=== PATIENT | female | born 1930 | race Caucasian/White ===

== ENCOUNTER 2017-01-20 14:37 | Observation (INO) | payer MEDICARE ==
[2017-01-20] MEDS ORDERED: NS 0.9% 1000 ML* 1,000 ML IV SCH ×2 (15:15→17:45)
--- NOTE | 2017-01-20 15:54 | RAD ---
INDICATION: Syncope. COMPARISON: Comparison is made with a prior chest x-ray study from June 01, 2015. TECHNIQUE: The and lateral views of the chest were obtained. FINDINGS: The heart is within normal limits in size. Mediastinal and hilar contours appear within normal limits. The lungs are clear. There is flattening of the diaphragms suggestive of chronic obstructive pulmonary disease. No pleural effusion is seen. IMPRESSION: NO EVIDENCE FOR ACTIVE CARDIOPULMONARY DISEASE.
--- NOTE | 2017-01-20 16:12 | RAD ---
Indication: Syncope. CT of the brain was performed without IV contrast. Ventricular structures are midline. No midline shift is noted. The extraction spaces are unremarkable. There is no evidence of intracranial mass or hemorrhage. No other high or low density lesions are identified. Mastoid air cells and paranasal sinuses are unremarkable. IMPRESSION: No intracranial mass or hemorrhage is noted.
[2017-01-20 16:18] LABS: Hematocrit 37 % (35-47); Hemoglobin 12.2 g/dl (12.0-16.0); Mean Corpuscular HGB Conc 33 g/dl (31-36); Mean Corpuscular Hemoglobin 27 pg (27-31); Mean Corpuscular Volume 83 fL (80-97); Mean Platelet Volume 8 um3 (7.4-10.4); Red Blood Count 4.47 10^6/ul (4.0-5.4); Red Cell Distribution Width 17 % (10.5-15); White Blood Count 6.8 10^3/ul (3.5-10.8)
[2017-01-20 16:40] LABS: B Type Natriuretic Peptide 254 pg/mL
[2017-01-20 16:47] LABS: Troponin I 0.04 ng/mL (<0.04)
[2017-01-20 16:49] LABS: Ammonia 22 mol/L (16-53)
[2017-01-20 16:50] LABS: Albumin 3.5 g/dL (3.2-5.2); BUN/Creatinine Ratio 14.1 (8-20); Calcium 9.1 mg/dL (8.6-10.3); EGFR African American 67.9 (>60); EGFR Non-African American 52.8 (>60); Globulin 2.2 g/dL (2-4); Magnesium 1.7 mg/dL (1.9-2.7); Potassium 4.2 mmol/L (3.5-5.0); Total Protein 5.7 g/dL (6.4-8.9)
[2017-01-20 16:59] LABS: TSH (Thyroid Stimulating Horm) 0.99 mcIU/mL (0.34-5.60)
[2017-01-20] MEDS ORDERED: Albuterol HFA INHALER* 8 gm MDI INH PRN (17:44)
[2017-01-20] MEDS ORDERED: Albuterol 2.5 MG/3 ML NEB.SOL* (0.083%) INH PRN (17:44)
[2017-01-20] MEDS ORDERED: Magnesium Sulfate 2 GM IV* 2 GM/50 ML BAG IVPB ONE (17:46)
[2017-01-20] MEDS: Aspirin Low Dose CHEW TAB* 81 MG PO SCH (20:04)
--- NOTE | 2017-01-20 20:58 | HP ---
CC: Dr. Miles; Dr. Franklin * HISTORY AND PHYSICAL: DATE OF ADMISSION: 01/20/17 PRIMARY CARE PROVIDER: Dr. Miles. NEUROLOGIST: Dr. Franklin. CHIEF COMPLAINT: Syncope and chest pain. HISTORY OF PRESENT ILLNESS: Ms. Reed is an 87-year-old female, who had a routine followup appointment with Dr. Franklin on the day of admission. Following that appointment, the patient's niece took the patient to [facility]. The patient had gotten out of the car, walked into the store and was going to grab the cart when she suddenly stated that she felt very faint. The patient began to collapse. Her niece as well as some bystanders helped lower her to the floor. The patient's niece states that she is not sure if she lost consciousness completely. The patient states that besides having that faintness feeling, she had what she described as a lump in her chest. The patient denied any spinning sensation, sweating, or nausea at the time of her passing out episode. The patient states that the chest discomfort in the chest lasted for a couple of hours even after the syncopal episode resolved. At this point, the patient is feeling essentially back to normal. She states that she had a good morning without any concerning symptoms. PAST MEDICAL HISTORY: 1. GERD. 2. Memory impairment. 3. CHF - systolic - currently compensated. 4. Overactive bladder. 5. History of breast cancer. 6. History of uterine cancer. 7. Osteoarthritis. 8. Obstructive sleep apnea. 9. Hypertension. MEDICATIONS: 1. Ammonium lactate 12% applied topically twice daily. 2. Probiotic 1 cap p.o. daily. 3. Albuterol HFA 1 puff inhaled q.6 hours p.r.n. shortness of breath. 4. Ramipril 5 mg p.o. daily. 5. Preparation H 1 application rectally t.i.d. p.r.n. hemorrhoids. 6. Potassium chloride 20 mEq p.o. daily. 7. Oxybutynin ER 10 mg p.o. daily. 8. Metoprolol XL 50 mg p.o. daily. 9. Namenda 5 mg p.o. daily. 10. Famotidine 40 mg p.o. daily. 11. Fluoxetine 20 mg p.o. daily. 12. Vitamin D 50,000 units p.o. weekly. 13. Donepezil 10 mg p.o. daily. 14. Vitamin B12 1000 mcg p.o. monthly. 15. Albuterol 1 neb inhaled b.i.d. p.r.n. shortness of breath. 16. Questran 4 g p.o. daily. 17. Lipitor 20 mg p.o. daily. 18. Fosamax 70 mg p.o. weekly. ALLERGIES: SULFA MEDICATIONS. FAMILY HISTORY: The patient's father had coronary artery disease, CHF, and hypertension. The patient's mother had Alzheimer's. SOCIAL HISTORY: The patient is a former smoker quitting in 1966. She is a retired high school librarian from . She lives alone. She is . Her niece, Patricia Sanches, is her healthcare proxy. REVIEW OF SYSTEMS: A complete 11-system review of systems was obtained. Pertinent positives and negatives are as per HPI and otherwise negative. PHYSICAL EXAMINATION GENERAL: The patient is a well-developed elderly female, lying in the bed, in no acute distress. VITAL SIGNS: Blood pressure 157/58, pulse 52, respirations 17, temp 98.5, O2 sat 99% on 2 L. HEENT: Pupils are equal. They are round. There is evidence of prior cataract extraction. Extraocular muscles are intact. Oropharynx is clear. Oral mucosa is moist. There is no submandibular, cervical, or supraclavicular adenopathy. Thyroid is not enlarged. No thyroid nodules are noted. PULMONARY: Lungs are clear to auscultation bilaterally. CARDIAC: Normal S1, S2. Heart rate is bradycardic, but regular. I do not appreciate any murmurs. There is trace to 1+ bilateral lower extremity edema with the left being worse than the right slightly. ABDOMEN: Bowel sounds present. Abdomen is soft, nontender, nondistended. MUSCULOSKELETAL: There is no cyanosis or clubbing of the digits. There is full active range of motion of all 4 extremities. NEURO: Cranial nerves II through XII are grossly intact. Sensation is intact to light touch throughout. Strength is 5/5 and symmetric in both upper and lower extremities bilaterally. PSYCH: The patient is alert, she is oriented x3. Affect appears appropriate. SKIN: Warm and dry. There are no rashes. DIAGNOSTIC STUDIES/LAB DATA: Sodium 134, potassium 4.2, chloride 102, CO2 26, BUN 14, creatinine 0.99, glucose 97, lactic acid 0.8, calcium 9.1, magnesium 1.7. Bilirubin 1.0, AST 17, ALT 9, alk phos 59, ammonia 22. Troponin 0.04. BNP 254. Albumin 3.5. TSH 0.99. WBC 6.8, hemoglobin 12.2, hematocrit 37, platelets 184. EKG reveals sinus bradycardia and otherwise negative for acute ST-T wave abnormalities. Chest x-ray: No evidence for active cardiopulmonary disease. CT brain: No intracranial mass or hemorrhage is noted. ASSESSMENT AND PLAN: Ms. Reed is an 87-year-old female with history of cognitive impairment, systolic congestive heart failure, hypertension, and obstructive sleep apnea, who presents to the emergency room with complaints of syncopal episode while out at [facility]. 1. Syncope. My leading differential for this is orthostatic syncope. The patient do not have really any prodrome of symptoms other than feeling of faintness prior to losing consciousness. The patient had also just gotten out of the car and walked into the store. The patient's niece states that she does not drink enough water throughout the day and they are constantly pushing her to drink more. The patient at this time also feels thirsty, which would make me believe that perhaps she is slightly dehydrated which could exacerbate orthostasis. Additional differentials include vasovagal syncope or cardiac syncope. The patient's heart rate is bradycardic in the 50s. This seems perhaps too low for an elderly individual. I will go ahead and cut her metoprolol down to 25 mg daily. She will be monitored on telemetry. Orthostatic vital signs will be obtained. Additionally, a transthoracic echocardiogram will be obtained. 2. Chest discomfort. The patient states that prior to losing consciousness, she did develop what she described as a lump in her chest. While that dissipated, she then states that she felt discomfort in her chest for a couple of hours afterwards. The patient's troponin is slightly elevated at 0.04. Followup troponins will be obtained x2 as well a followup EKG. The patient is also going to undergo transthoracic echocardiogram. Of note, she did have a cardiac catheterization in November 2010, which did not show any significant obstructive coronary artery disease. 3. Hyperlipidemia. The patient will be maintained on her usual dose of Lipitor. 4. Hypertension. At this time, the patient's blood pressure is moderately elevated. For now, she will be continued on her usual dose of ramipril and her metoprolol XL will be decreased to 25 mg daily. 5. Cognitive impairment. The patient will be continued on her usual dose of donepezil and Namenda. 6. Gastroesophageal reflux disease. The patient will continue on famotidine. 7. Depression. She will continue on her usual dose of fluoxetine. 8. DVT prophylaxis. According to the Adult Thrombosis Prophylaxis Risk Factor Assessment Guide, the patient has a total risk factor score of 6 making her high risk. She will be placed on heparin 5000 units subcutaneous q.8 hours. 9. Code status is DNR and the patient indicates that her niece, Patricia Sanches, is her healthcare proxy. TIME SPENT: Sixty minutes was spent admitting this patient. [id number]/CPS #: [id number] MTDD
[2017-01-20] MEDS: Heparin VIAL(*) 5000 UNITS/ML VIAL (FIVE THOUSAND) SUBCUT SCH (22:01)
[2017-01-21] MEDS: Heparin VIAL(*) 5000 UNITS/ML VIAL (FIVE THOUSAND) SUBCUT SCH ×2 (05:27→15:37)
[2017-01-21] MEDS ORDERED: Potassium Chlor TAB* 20 MEQ TAB.ER PO SCH (09:00)
[2017-01-21] MEDS ORDERED: Cholestyramine Resin* 4 GM POWDER PO SCH (09:00)
[2017-01-21] MEDS ORDERED: Ramipril CAP* 5 MG PO SCH (09:00)
[2017-01-21] MEDS ORDERED: Atorvastatin* 20 MG TAB PO SCH (09:00)
[2017-01-21] MEDS ORDERED: Famotidine TAB* 20 MG PO SCH (09:00)
[2017-01-21] MEDS ORDERED: Memantine TAB* 5 MG PO SCH (09:00)
[2017-01-21] MEDS ORDERED: Oxybutynin XL TAB* 5 MG PO SCH (09:00)
[2017-01-21] MEDS ORDERED: FLUoxetine CAP* 20 MG PO SCH (09:00)
[2017-01-21] MEDS ORDERED: Metoprolol Succinate XL TAB* 25 MG PO SCH (09:00)
[2017-01-21] MEDS ORDERED: Donepezil TAB* 5 MG PO SCH (09:00)
[2017-01-21] MEDS: Aspirin Low Dose CHEW TAB* 81 MG PO SCH (10:00)
--- NOTE | 2017-01-21 12:30 | PN ---
Subjective Date of Service: 01/21/17 Interval History: Pt is feeling well. She has not had any lightheadedness today. No further chest discomfort. No SOB. She has been up and ambulating to the bathroom without difficulty but has not ambulated around the floor. Objective Active Medications: Albuterol (Ventolin 2.5 Mg/3 Ml Neb.Diana*) 2.5 mg INH BID PRN PRN Reason: SHORTNESS OF BREATH Albuterol (Ventolin Hfa Inhaler*) 2 puff INH Q6H PRN PRN Reason: SHORTNESS OF BREATH Aspirin (Aspirin Low Dose Tab*) 81 mg PO DAILY [facility] Last Admin: 01/21/17 10:00 Dose: 81 mg Atorvastatin Calcium (Lipitor*) 20 mg PO DAILY [facility] Last Admin: 01/21/17 10:00 Dose: 20 mg Cholestyramine Resin (Questran*) 4 gm PO DAILY [facility] Last Admin: 01/21/17 10:01 Dose: 4 gm Donepezil HCl (Aricept Tab*) 10 mg PO DAILY [facility] Last Admin: 01/21/17 10:00 Dose: 10 mg Famotidine (Pepcid Tab*) 40 mg PO DAILY [facility] Last Admin: 01/21/17 10:00 Dose: 40 mg Fluoxetine HCl (Prozac Cap*) 20 mg PO DAILY [facility] Last Admin: 01/21/17 09:59 Dose: 20 mg Heparin Sodium (Porcine) (Heparin Vial(*)) 5,000 units SUBCUT Q8HR [facility] Last Admin: 01/21/17 05:27 Dose: 5,000 units Memantine (Namenda Tab*) 5 mg PO DAILY [facility] Last Admin: 01/21/17 10:55 Dose: 5 mg Metoprolol Succinate (Toprol Xl Tab*) 25 mg PO DAILY [facility] Last Admin: 01/21/17 10:00 Dose: 25 mg Oxybutynin Chloride (Ditropan Xl Tab*) 10 mg PO DAILY [facility] Last Admin: 01/21/17 09:59 Dose: 10 mg Potassium Chloride (Klor Con Er Tab*) 20 meq PO DAILY [facility] Last Admin: 01/21/17 10:01 Dose: 20 meq Ramipril (Altace Cap*) 5 mg PO DAILY [facility] Last Admin: 01/21/17 10:00 Dose: 5 mg Vital Signs 01/20/17 01/20/17 01/20/17 17:46 18:00 18:20 Temperature 98.4 F Pulse Rate 52 51 50 Respiratory 17 17 18 Rate Blood Pressure 146/67 138/87 (mmHg) O2 Sat by Pulse 99 99 100 Oximetry 01/20/17 01/20/17 01/20/17 20:40 20:47 23:28 Temperature 98.4 F Pulse Rate 61 50 50 Respiratory 18 Rate Blood Pressure 118/53 138/87 (mmHg) O2 Sat by Pulse 100 Oximetry 01/20/17 01/21/17 01/21/17 23:53 03:14 07:12 Temperature 98.0 F 97.6 F 97.9 F Pulse Rate 51 51 48 Respiratory 20 16 20 Rate Blood Pressure 117/41 130/54 149/56 (mmHg) O2 Sat by Pulse 97 99 97 Oximetry Oxygen Devices in Use Now: Nasal Cannula - 97%-2L Appearance: Elderly female sitting up in bed reading, NAD Eyes: No Scleral Icterus Ears/Nose/Mouth/Throat: Mucous Membranes Moist Respiratory: Symmetrical Chest Expansion and Respiratory Effort, Clear to Auscultation - with few RLL crackles Cardiovascular: NL Sounds; No Murmurs; No JVD, RRR, - - trace B/L LE edema Abdominal: NL Sounds; No Tenderness; No Distention Extremities: No Clubbing, Cyanosis Skin: No Rash or Ulcers, No Nodules or Sclerosis Neurological: Alert and Oriented x 3 Result Diagrams: 01/20/17 15:55 01/20/17 15:55 Assess/Plan/Problems-Billing Ms Reed is an 87 yo F who presented to the ER with c/o a syncopal episode while at [facility] with associated chest discomfort. - Patient Problems (1) Syncope Current Visit: Yes Status: Acute Code(s): R55 - SYNCOPE AND COLLAPSE SNOMED Code(s): 722511773 Comment: The patient has been monitored on tele and found to be bradycardic but she has not had any further episodes of syncope. I suspect the syncope is related to possible volume depletion from not drinking enough at home. She was not orthostatic last evening when checked though she had received fluids prior to having them obtained. Her bradycardia may have additionally contributed. I have cut her metoprolol XL dose in half and despite that she is still bradycardic. Will stop the metoprolol all together. Will make sure she is up and ambulating prior to d/c to ensure she is asymptomatic. (2) Elevated troponin Current Visit: Yes Status: Acute Code(s): R74.8 - ABNORMAL LEVELS OF OTHER SERUM ENZYMES SNOMED Code(s): 052811189 Comment: Likely demand ischemia. Troponin did climb to 0.11 but has since trended down. Echo results are pending. (3) HTN (hypertension) Current Visit: Yes Status: Acute Code(s): I10 - ESSENTIAL (PRIMARY) HYPERTENSION SNOMED Code(s): 57750090 Comment: BP is moderately elevated with decreased metoprolol dose. Will increase ramipril on d/c. (4) DVT prophylaxis Current Visit: Yes Status: Acute Code(s): OTY1418 - SNOMED Code(s): 916847144 Comment: SQ heparin (5) DNR (do not resuscitate) Current Visit: Yes Status: Acute
--- NOTE | 2017-01-21 13:42 | ED ---
Chris Santana Aidan, scribed for Javier Troncoso MD on 01/20/17 at 1532 . Syncope/Near Syncope - HPI Summary HPI Summary: 87 y/o female presents to the ED with a complaint of an acute, moderate syncopal event that began just EVENT ATTENDANT. During onset of the event, she became dizzy , weak, and had chest pressure. After the event, she had confusion. Currently, she still has weakness. Pt denies any nausea, vomiting, or abdominal pain. - History Of Current Complaint Chief Complaint: EDDizziness Time Seen by Provider: 01/20/17 14:56 Hx Obtained From: Patient Onset/Duration: Sudden Onset Timing: Seconds - seconds to a minute Context: Witnessed, Loss Of Consciousness Activity At Onset: At Rest - Pt was standing Associated Head Trauma: No Aggravating Factor(s): Other - unknown Alleviating Factor(s): Other - unknown Associated Signs And Symptoms: Dizzy, Weakness, Other - chest pressure, syncope , confusion Frequency: Episodes x___ - 1, Episodes Lasting ____ (in Mins/Days/Weeks/Years) - seconds to a minute - Risk Factors Cardiac Risk Factors: Smoking - former smoker - Allergies/Home Medications Allergies/Adverse Reactions: Allergies Allergy/AdvReac Type Severity Reaction Status Date / Time Loratadine [From Claritin] Allergy Unknown Unknown Verified 04/22/16 12:22 Reaction Details Sulfa Drugs Allergy Unknown Unknown Verified 04/22/16 12:22 Reaction Details Home Medications: Home Medications Alendronate (NF) [Fosamax (NF)] 70 mg PO WEEKLY 01/20/17 [History Confirmed ] Atorvastatin* [Lipitor 20 MG*] 20 mg PO DAILY 01/20/17 [History Confirmed ] Cholestyramine Resin* [Questran*] 4 gm PO DAILY 01/20/17 [History Confirmed ] Donepezil TAB* [Aricept 5 MG TAB*] 10 mg PO DAILY 01/20/17 [History Confirmed ] Ergocalciferol CAP* [Drisdol CAP*] 50,000 unit PO WEEKLY 01/20/17 [History Confirmed 01/20/17] FLUoxetine CAP* [Prozac CAP*] 20 mg PO DAILY 01/20/17 [History Confirmed ] Famotidine TAB* [Pepcid 20 MG TAB*] 20 mg PO DAILY 01/20/17 [History Confirmed 01/20/17] Lactic Acid (Ammonium Lactate) [Ammonium Lactate] 12 % TOPICAL BID 01/20/17 [ History Confirmed 01/20/17] Memantine TAB* [Namenda TAB*] 5 mg PO DAILY 01/20/17 [History Confirmed 01/20/17 ] Oxybutynin Chloride [Oxybutynin Chloride ER] 10 mg PO DAILY 01/20/17 [History Confirmed 01/20/17] Phenylephrine-Mineral Oil-Juventino [Preparation H 0.25-14-74.9 %] 1 oin SD TID PRN 01/20/17 [History Confirmed 01/20/17] Potassium Chlor TAB* [Potassium Chlor TAB 20 MEQ*] 20 meq PO DAILY 01/20/17 [ History Confirmed 01/20/17] Probiotic Product [Probiotic Daily] 1 cap PO DAILY 01/20/17 [History Confirmed 01/20/17] PMH/Surg Hx/FS Hx/Imm Hx Endocrine/Hematology History: Reports: Hx Thyroid Disease, Other Endocrine/ Hematological Disorders - Vitamin B12 Deficiency Denies: Hx Diabetes Cardiovascular History: Reports: Hx Hypercholesterolemia, Hx Hypertension, Other Cardiovascular Problems/Disorders - Heart Disease Denies: Hx Pacemaker/ICD Respiratory History: Reports: Hx Asthma, Hx Sleep Apnea - current BiPAP user History: Denies: Hx Renal Disease Musculoskeletal History: Reports: Hx Osteoporosis Sensory History: Reports: Hx Hearing Aid - DOESN'T WEAR ALL THE TIME Neurological History: Reports: Other Neuro Impairments/Disorders - Alzheimers Psychiatric History: Denies: Hx Panic Disorder - Cancer History Cancer Type, 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 Rt MASTECTOMY - 1991. TOTAL HYSTERECTOMY - 2007 Infectious Disease History: Denies: Traveled Outside the [place] in Last 30 Days - Family History Known Family History: Positive: Hypertension Family History: FHx of Breast CA (Aunt) - Social History Occupation: Retired Lives: Alone Alcohol Use: Rare Substance Use Type: Reports: None Smoking Status (MU): Former Smoker Review of Systems Constitutional: Negative Eyes: Negative ENT: Negative Positive: Other - chest pressure. Negative: Palpitations, Chest Pain Respiratory: Negative Gastrointestinal: Negative Genitourinary: Negative Musculoskeletal: Negative Skin: Negative Neurological: Other - dizziness, confusion Positive: Weakness, Syncope. Negative: Headache, Paresthesia, Numbness, Slurred Speech Psychological: Normal All Other Systems Reviewed And Are Negative: Yes Physical Exam - Summary Physical Exam Summary: VITAL SIGNS: Reviewed. GENERAL: Patient is a well-developed and nourished, elderly FEMALE who is lying comfortable in the stretcher. Patient is not in any acute respiratory distress. HEAD AND FACE: No signs of trauma. No ecchymosis, hematomas or skull depressions. No sinus tenderness. EYES: PERRLA, EOMI x 2, No injected conjunctiva, no nystagmus. EARS: Hearing grossly intact. Ear canals and tympanic membranes are within normal limits. MOUTH: Oropharynx within normal limits. NECK: Supple, trachea is midline, no adenopathy, no JVD, no carotid bruit, no c- spine tenderness, neck with full ROM. CHEST: Symmetric, no tenderness at palpation LUNGS: Clear to auscultation bilaterally. No wheezing or crackles. CVS: Regular rate and rhythm, S1 and S2 present, no murmurs or gallops appreciated. ABDOMEN: Soft, non-tender. No signs of distention. No rebound no guarding, and no masses palpated. Bowel sounds are normal. EXTREMITIES: FROM in all major joints, no edema, no cyanosis or clubbing. NEURO: Alert and oriented x 3. No acute neurological deficits. Speech is normal and follows commands. SKIN: Dry and warm Triage Information Reviewed: Yes Vital Signs On Initial Exam: Initial Vitals Temp Pulse Resp BP Pulse Ox 98.5 F 54 16 146/83 99 01/20/17 14:48 01/20/17 14:48 01/20/17 14:48 01/20/17 14:48 01/20/17 14:48 Vital Signs Reviewed: Yes - Helder Coma Scale Coma Scale Total: 15 Diagnostics - Vital Signs Vital Signs Temp Pulse Resp BP Pulse Ox 01/20/17 14:48 98.5 F 54 16 146/83 99 - Laboratory Lab Results: Lab Results 01/20/17 01/20/17 01/20/17 Range/Units 15:55 15:55 15:55 WBC 6.8 (3.5-10.8) 10^3/ul RBC 4.47 (4.0-5.4) 10^6/ul Hgb 12.2 (12.0-16.0) g/dl Hct 37 (35-47) % MCV 83 (80-97) fL MCH 27 (27-31) pg MCHC 33 (31-36) g/dl RDW 17 H (10.5-15) % Plt Count 184 (150-450) 10^3/ul MPV 8 (7.4-10.4) um3 Neut % (Auto) 73.1 (38-83) % Lymph % (Auto) 16.8 L (25-47) % [place] % (Auto) 8.4 (1-9) % Eos % (Auto) 1.2 (0-6) % Baso % (Auto) 0.5 (0-2) % Absolute Neuts (auto) 5.0 (1.5-7.7) 10^3/ul Absolute Lymphs (auto) 1.1 (1.0-4.8) 10^3/ul Absolute Monos (auto) 0.6 (0-0.8) 10^3/ul Absolute Eos (auto) 0.1 (0-0.6) 10^3/ul Absolute Basos (auto) 0 (0-0.2) 10^3/ul Absolute Nucleated RBC 0.02 10^3/ul Nucleated RBC % 0.3 Sodium 134 (133-145) mmol/L Potassium 4.2 (3.5-5.0) mmol/L Chloride 102 (101-111) mmol/L Carbon Dioxide 26 (22-32) mmol/L Anion Gap 6 (2-11) mmol/L BUN 14 (6-24) mg/dL Creatinine 0.99 H (0.51-0.95) mg/dL Est GFR ( Amer) 67.9 (>60) Est GFR (Non-Af Amer) 52.8 (>60) BUN/Creatinine Ratio 14.1 (8-20) Glucose 97 (70-100) mg/dL Lactic Acid 0.8 (0.5-2.0) mmol/L Calcium 9.1 (8.6-10.3) mg/dL Magnesium 1.7 L (1.9-2.7) mg/dL Total Bilirubin 1.00 (0.2-1.0) mg/dL AST 17 (13-39) U/L ALT 9 (7-52) U/L Alkaline Phosphatase 59 (34-104) U/L Ammonia (16-53) mol/L Troponin I 0.04 H* (<0.04) ng/mL B-Natriuretic Peptide ( - 100) pg/mL Total Protein 5.7 L (6.4-8.9) g/dL Albumin 3.5 (3.2-5.2) g/dL Globulin 2.2 (2-4) g/dL Albumin/Globulin Ratio 1.6 (1-3) TSH 0.99 (0.34-5.60) mcIU/mL 01/20/17 Range/Units 15:55 WBC (3.5-10.8) 10^3/ul RBC (4.0-5.4) 10^6/ul Hgb (12.0-16.0) g/dl Hct (35-47) % MCV (80-97) fL MCH (27-31) pg MCHC (31-36) g/dl RDW (10.5-15) % Plt Count (150-450) 10^3/ul MPV (7.4-10.4) um3 Neut % (Auto) (38-83) % Lymph % (Auto) (25-47) % [place] % (Auto) (1-9) % Eos % (Auto) (0-6) % Baso % (Auto) (0-2) % Absolute Neuts (auto) (1.5-7.7) 10^3/ul Absolute Lymphs (auto) (1.0-4.8) 10^3/ul Absolute Monos (auto) (0-0.8) 10^3/ul Absolute Eos (auto) (0-0.6) 10^3/ul Absolute Basos (auto) (0-0.2) 10^3/ul Absolute Nucleated RBC 10^3/ul Nucleated RBC % Sodium (133-145) mmol/L Potassium (3.5-5.0) mmol/L Chloride (101-111) mmol/L Carbon Dioxide (22-32) mmol/L Anion Gap (2-11) mmol/L BUN (6-24) mg/dL Creatinine (0.51-0.95) mg/dL Est GFR ( Amer) (>60) Est GFR (Non-Af Amer) (>60) BUN/Creatinine Ratio (8-20) Glucose (70-100) mg/dL Lactic Acid (0.5-2.0) mmol/L Calcium (8.6-10.3) mg/dL Magnesium (1.9-2.7) mg/dL Total Bilirubin (0.2-1.0) mg/dL AST (13-39) U/L ALT (7-52) U/L Alkaline Phosphatase (34-104) U/L Ammonia 22 (16-53) mol/L Troponin I (<0.04) ng/mL B-Natriuretic Peptide 254 H ( - 100) pg/mL Total Protein (6.4-8.9) g/dL Albumin (3.2-5.2) g/dL Globulin (2-4) g/dL Albumin/Globulin Ratio (1-3) TSH (0.34-5.60) mcIU/mL Result Diagrams: 01/20/17 15:55 01/20/17 15:55 Lab Statement: Any lab studies that have been ordered have been reviewed, and results considered in the medical decision making process. - Radiology CHEST X-RAY Xray Interpretation: No Acute Changes - IMPRESSION: NO EVIDENCE FOR ACTIVE CARDIOPULMONARY DISEASE Radiology Interpretation Completed By: Radiologist - CT BRAIN CT CT Interpretation: No Acute Changes - IMPRESSION: NO INTRACRANIAL MASS OR HEMORRHAGE IS NOTED CT Interpretation Completed By: Radiologist - EKG EKG 1510 Cardiac Rate: Bradycardia - 50 BPM EKG Rhythm: Sinus Bradycardia EKG Interpretation: NO ST ELEVATIONS Course/Dx Course Of Treatment: 87 y/o female presents because of a syncopal event with associated LOC, Dizziness, confusion and weakness. tests results within normal limits except troponin of 0.04. BNP of 254. INB Labs and Imaging reviewed. Chest x-ray and brain ct were negative. Pt was given IV fluids for hydration. Pt continues to be hemodynamically stable. Discussed the patients care with Dr. Travis who accepted admission for workup of syncopal episode and increased trop to rule out ACS. Assessment/Plan: Ekg shows sinus bradycardia without st elevation - Diagnoses Differential Diagnosis/HQI/PQRI: Positive: Cerebral Vascular Accident, Seizure, Transient Ischemic Attack, Vasovagal Episode Provider Diagnoses: Syncope, Elevated troponin Discharge - Discharge Plan Condition: Fair Disposition: HOME The documentation as recorded by the Chris alvarez Aidan accurately reflects the service I personally performed and the decisions made by me, Javier Troncoso MD.
[2017-01-21 14:46] VITALS: BP 116/48
--- NOTE | 2017-01-21 18:11 | ECHO ---
Patient: STANTON LAWTNO [facility] Rec#: [id number] : 1930 Date: 01/21/2017 Age: 87y Height: 152.4 cm / 60.0 in Weight: 66.7 kg / 147.0 lbs Sex: F BSA: 1.6 Room#: [facility] Admit Date#: 01/20/2017 Type: Inpatient Referring: Renetta Goldman DO Reading: Addy Roque MD Paint Sprayer Sandblaster: Alejandra mEerson RN RDCS CC: Haider Miles MD Transthoracic Echocardiogram Indication: Syncope BP: 130/54 HR: 50 Rhythm: Bradycardia Findings History: CHF, ROOPA, HTN, GERD, breast cancer, uterine cancer, former smoker, memory impairment Technical Comments: The study quality is fair. Completed at 0910. Left Ventricle: The left ventricular chamber size is normal. Mild to moderate concentric left ventricular hypertrophy is observed. There is global hypokinesis of the left ventricle with minor regional variation.Relative hypokinesis of the inferior and posterior jimenez. There is mildly decreased left ventricular systolic function. The estimated ejection fraction is 45-50%. There is no consistent Doppler evidence of clinically significant diastolic dysfunction. Left Atrium: The left atrium is moderate to severely dilated. Right Ventricle: The right ventricular cavity size is normal. The right ventricular global systolic function is low normal. Right Atrium: The right atrium is mildly dilated. Aortic Valve: The aortic valve is trileaflet. The aortic valve leaflets are mildly thickened. There is a trace of aortic regurgitation. There is no evidence of aortic stenosis. Mitral Valve: Mild mitral annular calcification present. The mitral valve leaflets are mildly thickened. There is mild to moderate mitral regurgitation. There is no evidence of mitral stenosis. Tricuspid Valve: The tricuspid valve leaflets are normal. There is mild tricuspid regurgitation. There is evidence of mild to moderate pulmonary hypertension. There is no tricuspid stenosis. Pulmonic Valve: The pulmonic valve appears normal. There is mild pulmonic regurgitation. There is no pulmonic stenosis. Pericardium: There is no significant pericardial effusion. A pericardial fat pad is visualized. Aorta: There is no dilatation of the ascending aorta. There is no dilatation of the aortic arch. There is no dilation of the aortic root. Pulmonary Artery: The main pulmonary artery appears normal. Venous: The inferior vena cava appears normal in size. There is an approximate 50% respiratory change in the inferior vena cava dimension. Conclusions Mild to moderate concentric left ventricular hypertrophy is observed. There is global hypokinesis of the left ventricle with minor regional variation.Relative hypokinesis of the inferior and posterior jimenez. There is mildly decreased left ventricular systolic function. The estimated ejection fraction is 45-50%. The left atrium is moderate to severely dilated. The right atrium is mildly dilated. There is mild to moderate mitral regurgitation. There is mild tricuspid regurgitation. There is evidence of mild to moderate pulmonary hypertension. There is mild pulmonic regurgitation. Similar to05/2015. Measurements Name Value Normal Range RVDdMajor (2D) 3.6 cm (2.2 - 4.4) RAd ISD 4CH 5.6 cm (3.4 - 4.9) RA (A4C)W 4.7 cm (2.9 - 4.6) IVSd (2D) 1.3 cm (0.6 - 1) LVPWd (2D) 1.3 cm (0.6 - 1) LVIDd (2D) 4.2 cm (3.6 - 5.4) LVIDs (2D) 3.4 cm - LV FS (2D) 20 % (25 - 45) Aortic Annulus 1.9 cm (1.4 - 2.6) Ao root diameter (2D) 2.8 cm (2.1 - 3.5) Ascending Ao 3 cm (2.1 - 3.4) Aortic arch 3 cm (1.8 - 3.4) LA dimension (AP) 2D 4.4 cm (2.3 - 3.8) LAd ISD 4CH 6 cm (2.9 - 5.3) LA ISD 4CH W 4.8 cm (2.5 - 4.5) Name Value Normal Range LA ESV SP 4CH (A/L) 125 ml - LA ESV SP 2CH (A/L) 67 ml - LA ESV BP (A/L) 99 ml - LA ESV BP (A/L) index 60.6 ml/m2 - LA ESV SP 4CH (MOD) 117 ml - LA ESV SP 2CH (MOD) 67 ml - Name Value Normal Range MV E-wave Vmax 0.96 m/sec - MV deceleration time 161 msec - MV A-wave Vmax 0.64 m/sec - MV E:A ratio 1.5 ratio - LV septal e' Vmax 0.05 m/sec - LV lateral e' Vmax 0.08 m/sec - LV E:e' septal ratio 19.2 ratio - LV E:e' lateral ratio 12 ratio - Name Value Normal Range AV Vmax 1.8 m/sec - AV VTI 51.2 cm - AV peak gradient 12.5 mmHg - AV mean gradient 7 mmHg - LVOT Vmax 1.1 m/sec - LVOT VTI 32.2 cm - LVOT peak gradient 5 mmHg - LVOT mean gradient 3 mmHg - ANTONIO Vmax 0.61 m/sec - Name Value Normal Range TR Vmax 2.9 m/sec - TR peak gradient 34 mmHg - RAP 8 mmHg - RVSP 42 mmHg - IVC diameter 2 cm - Name Value Normal Range PV Vmax 0.89 m/sec -
--- NOTE | 2017-01-23 04:05 | DS ---
CC: Haider Miles MD * DISCHARGE SUMMARY: DATE OF ADMISSION: 01/20/17 DATE OF DISCHARGE: 01/21/17 PRIMARY CARE PROVIDER: Haider Miles MD NEUROLOGIST: Dr. Franklin. PRINCIPAL DIAGNOSIS: Syncopal episode likely secondary to volume depletion and possible bradycardia. SECONDARY DIAGNOSES: 1. Gastroesophageal reflux disease. 2. Memory impairment. 3. Systolic congestive heart failure. 4. Overactive bladder. 5. Hypertension. 6. Obstructive sleep apnea. DISCHARGE MEDICATIONS: 1. Famotidine 20 mg p.o. daily. 2. Vitamin B12 1000 mcg p.o. daily. 3. Ramipril 10 mg p.o. q.h.s. 4. Lipitor 20 mg p.o. daily. 5. Ammonium lactate 12% topical b.i.d. 6. Probiotic 1 cap p.o. daily. 7. Preparation H 1 application AL t.i.d. p.r.n. hemorrhoids. 8. Potassium chloride 20 mEq p.o. daily. 9. Oxybutynin 10 mg p.o. daily. 10. Namenda 5 mg p.o. daily. 11. Fluoxetine 20 mg p.o. daily. 12. Vitamin D 50,000 units p.o. weekly. 13. Donepezil 10 mg p.o. daily. 14. Questran 4 g p.o. daily. 15. Alendronate 70 mg p.o. weekly. 16. Aspirin 81 mg p.o. daily. HOSPITAL COURSE: Ms. Reed is an 87-year-old female who had just finished up with an appointment with Dr. Franklin and was going to do grocery shopping in [facility] when she sustained a syncopal episode. The patient reportedly got out of her niece's car, was walking into the building to get a cart and began to feel faint. The patient also describes the sensation of having a "lump" in her chest. The patient's niece helped the patient the ground as she crumpled down. The patient's niece questioned that she may have lost consciousness completely or not. The patient in the emergency room states that she had ongoing chest discomfort for approximately 2 hours after arrival to the ER. This has then had since gone away at the time of my evaluation. The patient was admitted to evaluation of her syncopal episode and chest discomfort. In terms of the syncopal episode, she had orthostatic vital signs obtained, which did not reveal any evidence of orthostasis; however, these were performed after she already received approximately 1 L of fluid. She was noted to be bradycardic, therefore her metoprolol dose initially was cut in half; however as she still remained bradycardic in the 40s, the decision was made to discontinue the metoprolol completely. The patient had been up and walking around the entire floor without any difficulty or lightheadedness. In terms of the chest discomfort, the patient did have serial troponins performed. The patient's troponin did peak at 0.11, but subsequently trended down. It is felt that that the patient's elevated troponin was likely related to demand ischemia. She did undergo transthoracic echocardiogram, which the results were not back at the time of her discharge, but now are back and reveal an EF of 45% to 50%, global hypokinesis of the left ventricle with minor regional variation. Relative hypokinesis of inferior and posterior wall is noted. This was not significantly changed from her last echo in 2014. The patient was feeling extremely well and wanted to be discharged home. The patient will continue to monitor her symptoms. She will need to follow up with her primary care provider for the cutting of the metoprolol. FOLLOWUP CONCERNS: The patient is being discharged home today, 01/21/17. She is to follow up with Dr. Miles on 01/25/17 at 11 a.m. ACTIVITY LEVEL: As tolerated. DIET: Regular. CONDITION ON DISCHARGE: Stable. TIME SPENT: 35 minutes were spent discharging this patient. [id number]/[facility] #: [id number] MTDD
== END 2017-01-21 17:25 | disposition home or self-care (01) ==
LOC: ED 14:37 → MEDTELE 17:42
PROVIDERS: ADMIT Hospitalist; ATTEND Hospitalist
DX: R55 Syncope and collapse (principal); R07.9 Chest pain, unspecified; R00.1 Bradycardia, unspecified; E86.9 Volume depletion, unspecified; I34.0 Nonrheumatic mitral (valve) insufficiency; I27.2 Other secondary pulmonary hypertension; I50.20 Unspecified systolic (congestive) heart failure; I11.0 Hypertensive heart disease with heart failure; I37.1 Nonrheumatic pulmonary valve insufficiency; I25.10 Atherosclerotic heart disease of native coronary artery without angina pectoris; I42.9 Cardiomyopathy, unspecified; I51.7 Cardiomegaly; G47.33 Obstructive sleep apnea (adult) (pediatric); Z85.3 Personal history of malignant neoplasm of breast; G31.84 Mild cognitive impairment of uncertain or unknown etiology; Z85.42 Personal history of malignant neoplasm of other parts of uterus; Z87.891 Personal history of nicotine dependence; N32.81 Overactive bladder; K21.9 Gastro-esophageal reflux disease without esophagitis; R74.8 Abnormal levels of other serum enzymes; Z88.0 Allergy status to penicillin; Z88.8 Allergy status to other drugs, medicaments and biological substances
CPT/HCPCS: 36415; 70450; 71020; 80053; 82140; 83605; 83735; 83880; 84443; 84484; 85025; 93005; 93306; 96360; 96372; 99283; A9270-GY; G0378; J1644

== ENCOUNTER 2017-10-17 17:47 | Emergency (ER) | payer MEDICARE ==
--- OUTSIDE RECORDS SUMMARY | 2017-10-17 18:24 | XMS REPORT ---
:1930 External Reference #:[id number] Author Organization [facility] Address [address] [address] Phone [phone] Care Team Providers Name Role Phone Brianna Suarez MD Primary Care Physician Unavailable Payers Type Date Identification Numbers Payment Provider Subscriber Medicare Primary Policy Number: [id number] Medicare Kati Reed PayID: [id number] [address] [place] [address] [facility] Policy Number: [id number] [facility] aKti Leigh Derek PayID: [id number] [address] [place] [address] Advance Directives Type Date Description Status Comment Other Directive 04/27/2012 Health Care Proxy Current and Verified Problems Date Description Provider Status Onset: 07/01/2011 Coronary arteriosclerosis Brenda Kasper M.D. Onset: 07/01/2011 Benign essential hypertension Brenda Kasper M.D. Onset: 07/01/2011 Restrictive cardiomyopathy secondary rBenda Kasper M.D. Onset: 07/01/2011 Electrocardiogram abnormal Brenda Kasper M.D. Onset: 07/01/2011 Essential hypertension Brenda Kasper M.D. Onset: 02/03/2012 Premature beats Brenda Kasper M.D. Onset: 12/20/2012 Pure hypercholesterolemia Brenda Kasper M.D. Onset: 12/20/2012 Mitral valve disorder Brenda Kasper M.D. Onset: 12/20/2012 Rheumatic disease of tricuspid valve Brenda Kasper M.D. Onset: 10/20/2013 Edema Brenda Kasper M.D. Onset: 05/10/2015 Cardiomyopathy, unspecified Brenda Kasper M.D. Onset: 07/01/2015 Memory impairment Reina Franklin M.D. Active Note: Mild cognitive impairment (MoCA 25 on 08/15/15, in July 2016, in August 2017) Onset: 07/01/2015 History of fall Reina Franklin M.D. Active Onset: 07/01/2015 Depressive disorder Reina Franklin M.D. 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 Family History Date Family Member(s) Problem(s) Comments General Heart Disease General Cancer Father due to Stroke () Mother Alzheimer's Disease Mother due to Alzheimer's () Disease Siblings 1 sister with Alzheimer's, mastectomy, breast cancer Social History Type Date Description Comments Marital Status Single Lives With [employer] Occupation Retired Cigarette Use Former Cigarette Smoker Smoked 1 PPD for 10 years Smokeless Tobacco Never Used Smokeless Tobacco ETOH Use Denies alcohol use Smoking Patient is a former smoker Recreational Drug Use Denies Drug Use Daily Caffeine Consumes on average 3 cups of decaff coffee per day Exercise Type/Frequency Does not exercise Allergies, Adverse Reactions, Alerts Date Description Reaction Status Severity Comments 05/17/2008 Sulfa active vomits Medications Medication Date Status Form Strength Qnty SIG Indications Ordering Provider Metoprolol 10/07 Active Tablets ER 25mg 60tab 08/10 tab by I49.3 Mimi S. Succinate ER /2017 24HR s mouth twice Foster, a day N.P. Albuterol 09/21 Active Nebulizer (2.5mg/3M 75ml inhale 3 R06.00 Wisam Sulfate /2018 L) 0.083% milliliters ALONZO Kimball 2 times a day by neb.pt. last office visit was 07/14/17 Imodium A-D 07/06 Active Tablets 2mg 30tab 1 tablet s twice daily ALONZO Kimball as needed for loose stools. pt can id need Namenda 06/16 Active Tablets 10mg 60tab take one s tablet by letty Franklin twice M.D. a day Acetaminophen 06/02 Active Tablets 500mg 90tab 2 tabs every M25.519 Wisam s 8 hours as ALONZO Kimball needed for pain. Cpap 06/02 Active Device 1unit for use G47.30 Wisam s while ALONZO Kimball sleeping Cpap Mask And 06/02 Active Device 1unit use with G47.30 Wisam s cpap nightly ALONZO Kimball Atorvastatin Active Tablets 20mg 90tab 1 po qd Unknown Calcium / s Ramipril Active Capsules 10mg 90cap 1 po hs Unknown / s Potassium Active Tablets ER 20Meq 1 po qd Unknown Chloride ER / Donepezil HCL Active Tablets 10mg 30tab 1 by mouth Reina / Dispers s every day Dorie Franklin Famotidine Active Tablets 20mg 60tab 1 po bid Unknown / s Vitamin B-12/ Active Lozenge 1 by mouth Unknown Folate / every day Alendronate Active Tablets 70mg 1 by mouth Unknown Sodium / weekly Preparation H Active Gel 0.25-50% apply Unknown /0000 externally tid Probiotic And Active Capsules 1 by mouth Unknown Acidophilus /0000 every day Oxybutynin Active Tablets ER 15mg 1 by mouth Unknown Chloride ER /0000 24HR every day (Mar states 10mg on 08/27/17) Vitamin D2 Active Tablets 27411Oote 1 by mouth Unknown /0000 every week Ventolin HFA Active Aerosol 108(90Bas 2 puffs by Unknown /0000 e) mouth four mcg/Act times a day as needed Cholestyramine Active Powder in the Unknown /0000 morning Fluoxetine HCL Active Capsules 20mg 1 by mouth Unknown /0000 every day Aspirin Low Active 1 by mouth Unknown Strength /0000 every day Memantine HCL 06/03 Hx Tablets 5(28)-10( 1pack use as Reina )mg directed Rigoberto, - (starter M.D. 07/13 pack); after complete, change to 10mg pills. Naproxen 09/29 Hx Tablets 500mg 40tab 1 tablet Anay s with food po Ruiz, - bid M.D. 07/23 Pepcid 12/20 Hx Tablets 20mg 30tab 1 po qd Other s Ordering - Provider 09/29 Hydrocodone/Brent 02/25 Hx Tablets 5-325mg 60tab 1-2 po qid Giovany taminophen /2011 s prn pain Young, - M.D. 12/20 Enalapril 12/12 Hx Tablets 20mg 30tab 1 po daily Stevanovi Maleate s c, - Radomir, 12/20 M.D. Aricept 12/12 Hx Tablets 5mg 30tab 1 po qd ano s c, - Radomir, 01/27 M.D. Boniva 12/12 Hx Tablets 150mg 3tabs take 1 tablet once c, - a month as Radomir, 01/27 directed M.D. Citracal/Vitami 12/12 Hx Tablets 250-200mg 60tab 1 po q bid Stevanovi n D -Unit s c, - Radomir, 10/31 M.D. Zocor 12/12 Hx Tablets 10mg 30tab 1 tablet po 401.1 Stevanovi s c, - Radomir, 10/31 dialy M.D. Ketoconazole 11/12 Hx Cream 2% 30gm 1 401.1 application c, - daily Radomir, 01/09 M.D. Nasonex 05/30 Hx Suspension 50mcg/Act 1unit 2 sprays per 784.91 Thananart s nostril qd x , Alissa, - 4-5 days, M.D. 01/09 then 1 spray /2009 per nostril qd x 4-5 days, then 1 spray per nostril qod x 4-5 days Ciprofloxacin 03/04 Hx Tablets 250mg 10tab 1 bid x 5 Thananart HCL s days , Gladys MaxwellDAlonso 05/28 Levaquin 11/28 Hx Tablets 500mg 7tabs 1 po qd x 7 486 Joshua /2008 days Gladys Lezama M.D.,FACP 01/02 Vitamin B12 10/24 Hx Tablets ER 1000mcg 30tab po qday 281.9 [place] /2008 s Juliana Graham M.D. 10/31 Keflex 08/10 Hx Capsules 500mg 40cap 1 tab po qid 680.2 rt s x 10 days Alissa - M.D. 11/28 Triamcinolone 07/25 Hx Ointment 0.1% 30G apply to 782.1 Stevanovi Acetonide affected c, - area tid x 2 Radomir, 01/09 wk M.D. Mupirocin 07/25 Hx Ointment 2% 22G apply to 782.1 anart /2007 affected , Alissa, - area tid x M.DAlonso 11/[address] 20mg 90cap 1 po qd Stevanovi /0000 s c, - Radomir, 12/19 M.D. Enalapril Hx Tablets 10mg 30tab 1 po qd Stevanovi Maleate /0000 s c, - Radomir, 12/12 M.D. Detrol LA Hx Caps ER 4mg 90cap 1 po qd Stevanovi /0000 24HR s c, - Radomir, 02/02 M.D. /[address] 40mg 1 po qd Unknown /0000 - 01/09 Metamucil /00 Hx bid Stevanovi /0000 c, - Radomir, 09/29 M.D. /2013 Aspirin 00 Hx Tablets 81mg 1 po qd Stevanovi /0000 c, - Radomir, 08/15 M.D. /2015 Toprol XL 00/00 Hx Tablets ER 100mg 1 po qd at Stevanovi /0000 24HR 1700 c, - Radomir, 10/23 M.D. /2013 Vasotec 00/00 Hx Tablets 10mg 1 po qd Stevanovi /0000 c, - Radomir, 01/27 M.D. /2009 Lasix / Hx Tablets 20mg 90tab 2 tablets po Qutaybeh /0000 s qd S. - Joseah 12/20 , M.D. /[address] 20mg 2 tablets Other /0000 daily Ordering - Provider 12/20 Vitamin C Hx 500mg 1 po qd Unknown / - 08/15 Crestor Hx Tablets 20mg 30tab 1 po qd 401.1 Unknown /0000 s - 02/02 Donepezil HCL Hx Tablets 10mg 1 po qd Unknown / - 12/20 Calcium /Vit D Hx Tablets 1 po qd Unknown / - 02/02 Sanctura XR Hx Caps ER 60mg 90cap 1 po qd Unknown / 24HR s - 10/23 Boniva Hx Tablets 150mg 1tabs take 1 Unknown /0000 tablet once - a month as 02/02 Alendronate Hx Tablets 70mg 12tab 1 po weekly Unknown Sodium /0000 s - 11/12 Calcium 600 / Hx Tablets 600mg 1 po qd Unknown / - 08/15 Magnesium Hx Tablets 200mg 1 po qd Unknown / - 09/29 Torsemide Hx Tablets 20mg 90tab 1 po qd Unknown /0000 s - 07/21 Aricept Hx Tablets 10mg 30tab 1 po qd Unknown / s - 09/29 Namenda 00 Hx Tablets 5mg 180ta 1 by mouth Unknown / bs every day - 09/29 B 12 Injection 00/ Hx Capsules monthy Unknown /0000 - 09/29 Albuterol Hx Nebulizer (2.5mg/3M 100un 1 vial via Unknown Sulfate /0000 L) 0.083% its nebulizer 4 - times daily 06/30 as Cyanocobalamin Hx Solution 1000mcg/M 25ml 1.0 cc im q Unknown /0000 L month - 11/12 Metoprolol Hx Tablets ER 50mg 1 po qd Unknown Succinate ER /0000 24HR - 02/25 Fish Oil 00/00 Hx 1000mg 1 po qd Unknown /0000 - 08/15 Trospium 00/00 Hx Caps ER 60mg 1 po qd Unknown Chloride ER /0000 24HR - 06/30 Spiriva 00/00 Hx Capsules 18mcg 90cap prn Unknown Handihaler /0000 s - 06/30 Namenda Hx Tablets 5mg 180ta 1 by mouth Unknown /0000 bs daily - 01/13 Sertraline HCL 00 Hx Tablets 100mg 1 by mouth Unknown /0000 every day - 11/08 Fluticasone Hx Suspension 50mcg/Act 2 sprays Unknown Propionate /0000 each nostril - qd prn 07/[address] 20mg 1 by mouth Unknown /0000 every day - 01/18 Magnesium / Hx Tablets 250mg 1 by mouth Unknown /0000 every day - 01/19 Trospium 00 Hx Caps ER 60mg 1 by mouth Unknown Chloride ER /0000 24HR every day - (pt not 07/21 taking) Aricept Hx Tablets 5mg take one by Unknown /0000 mouth each - day 01/13 Colace Hx Capsules 100mg 1 by mouth Unknown /0000 up to 3 - times a day 01/19 as needed /2016 for constipation x 30 days Memantine HCL 00 Hx Tablets 5mg 120ta take 1 by Reina /0000 bs mouth twice Cowdery, - a day x 7 M.D. 06/03 days, then in in the morning, and 2 in at night x 7 days, then 2 tablets by mouth twice a d Pepto-Bismol Hx Tablets 262mg 1 po tid x Unknown /0000 30 days - 02/25 Medications Administered in Office Medication Date Status Form Strength Qnty SIG Indications Ordering Provider Triamcinolone 06/29/ Administered Injection Zaneb (Kenalog) 2016 MD Leonid Triamcinolone 06/29/ Administered Injection Zaneb (Kenalog) 2016 MD Leonid Depomedrol 80MG 05/08/ Administered Injection Dirk 2014 Dorie Schmidt Depomedrol 80MG 09/29/ Administered Injection Anay 2013 Dorie Melchor Depomedrol 80MG 04/07/ Administered Injection Giovany 2011 Dorie Rodgers Depomedrol 80MG 02/11/ Administered Injection Giovany 2011 Dorie Rodgers B-12 Injection 09/17/ Administered Injection Nurse 2008 Visit [facility] B-12 Injection 08/14/ Administered Injection Thananart, 2008 Dorie Maxwell-12 Injection 08/14/ Administered Injection Nurse 2008 Visit [facility] B-12 Injection 08/07/ Administered Injection Thananart, 2007 Dorie Maxwell B-12 Injection 08/07/ Administered Injection Nurse 2007 Visit [facility] B-12 Injection 08/07/ Administered Injection Thananart, 2007 Dorie Maxwell B-12 Injection 07/31/ Administered Injection Thananart, 2007 Dorie Maxwell B-12 Injection 07/31/ Administered Injection Nurse 2007 Visit [facility] Immunizations CPT Code Status Date Vaccine Lot # [id number] Given 05/30/2009 Influenza Virus 3Yrs & Over [id number] Given 05/17/2008 Influenza Virus 3Yrs & Over [id number] Given 05/17/2008 Influenza Virus 3Yrs & Over [id number] Vital Signs Date Vital Result Comment 10/07/2017 Height 59 inches 4'11" Weight 152.00 lb Heart Rate 68 /min BP Systolic Sitting 134 mmHg LA, reg BP Diastolic Sitting 82 mmHg LA, reg BMI (Body Mass Index) 30.7 kg/m2 Ejection Fraction 45%-50% 01/21/17 echo 08/27/2017 Height 59 inches 4'11" Weight 152.00 lb Heart Rate 64 /min BP Systolic Sitting 100 mmHg BP Diastolic Sitting 58 mmHg Respiratory Rate 14 /min O2 % BldC Oximetry 97 % BMI (Body Mass Index) 30.7 kg/m2 Neck Circumference in inches 14.5 07/19/2017 Height 59 inches 4'11" Weight 152.00 lb with shoes Heart Rate 60 /min BP Systolic Sitting 158 mmHg LA reg cuff BP Diastolic Sitting 82 mmHg LA reg cuff BMI (Body Mass Index) 30.7 kg/m2 Ejection Fraction 45%-50% echo 01/21/17 07/14/2017 Height 59 inches 4'11" Weight 149.00 lb Heart Rate 65 /min BP Systolic Sitting 122 mmHg BP Diastolic Sitting 64 mmHg Body Temperature 98.1 F O2 % BldC Oximetry 96 % BMI (Body Mass Index) 30.1 kg/m2 06/29/2017 Height 59 inches 4'11" Weight 153.00 lb Heart Rate 64 /min Respiratory Rate 16 /min Body Temperature 97.8 F Pain Level 0 BMI (Body Mass Index) 30.9 kg/m2 06/02/2017 Height 59 inches 4'11" Weight 153.00 lb Heart Rate 74 /min BP Systolic Sitting 128 mmHg BP Diastolic Sitting 72 mmHg Body Temperature 98.1 F O2 % BldC Oximetry 95 % BMI (Body Mass Index) 30.9 kg/m2 05/28/2017 Height 60 inches 5'0" Heart Rate 78 /min BP Systolic Sitting 124 mmHg BP Diastolic Sitting 74 mmHg Respiratory Rate 16 /min 02/26/2017 Height 60 inches 5'0" Weight 145.75 lb Heart Rate 74 /min BP Systolic Sitting 124 mmHg LA reg cuff BP Diastolic Sitting 62 mmHg LA reg cuff BMI (Body Mass Index) 28.5 kg/m2 Ejection Fraction 45% - 50% echo 01/21/17 01/20/2017 Height 60 inches 5'0" Weight 147.00 lb Heart Rate 68 /min BP Systolic Sitting 130 mmHg BP Diastolic Sitting 68 mmHg Respiratory Rate 14 /min BMI (Body Mass Index) 28.7 kg/m2 11/09/2016 Height 60 inches 5'0" Weight 151.25 lb with shoes Heart Rate 60 /min BP Systolic Sitting 128 mmHg LA reg cuff BP Diastolic Sitting 68 mmHg LA reg cuff BMI (Body Mass Index) 29.5 kg/m2 Ejection Fraction 50-55% Echo 05/20/15 07/23/2016 Height 60 inches 5'0" Weight 155.00 lb Heart Rate 62 /min BP Systolic Sitting 136 mmHg LA lrg cuff BP Diastolic Sitting 68 mmHg LA lrg cuff BMI (Body Mass Index) 30.3 kg/m2 Ejection Fraction 50% - 55% echo 05/20/15 07/22/2016 Height 60 inches 5'0" Weight 155.00 lb Heart Rate 68 /min BP Systolic Sitting 124 mmHg BP Diastolic Sitting 68 mmHg Respiratory Rate 14 /min BMI (Body Mass Index) 30.3 kg/m2 01/20/2016 Height 60 inches 5'0" Weight 163.75 lb with shoes Heart Rate 60 /min BP Systolic 124 mmHg LA reg cuff BP Diastolic 70 mmHg LA reg cuff BMI (Body Mass Index) 32.0 kg/m2 Ejection Fraction 50% - 55% echo 05/20/15 01/15/2016 Height 60 inches 5'0" Weight 163.00 lb Heart Rate 76 /min BP Systolic Sitting 114 mmHg BP Diastolic Sitting 76 mmHg Respiratory Rate 14 /min BMI (Body Mass Index) 31.8 kg/m2 08/15/2015 Height 60 inches 5'0" Weight 167.00 lb Heart Rate 64 /min BP Systolic Sitting 116 mmHg BP Diastolic Sitting 64 mmHg Respiratory Rate 16 /min BMI (Body Mass Index) 32.6 kg/m2 07/01/2015 Height 60 inches 5'0" Weight 167.00 lb Heart Rate 60 /min BP Systolic Sitting 132 mmHg BP Diastolic Sitting 64 mmHg Respiratory Rate 16 /min BMI (Body Mass Index) 32.6 kg/m2 05/23/2015 Height 60 inches 5'0" Weight 167.00 lb Heart Rate 60 /min BP Systolic Sitting 112 mmHg left arm, reg cuff BP Diastolic Sitting 56 mmHg left arm, reg cuff BMI (Body Mass Index) 32.6 kg/m2 Ejection Fraction 50-55% 05/20/15 05/10/2015 Height 60 inches 5'0" Weight 168.00 lb Heart Rate 62 /min BP Systolic 140 mmHg BP Diastolic 72 mmHg BMI (Body Mass Index) 32.8 kg/m2 Ejection Fraction 50-55% 09/28/13 ECHO 05/08/2015 Height 60 inches 5'0" Weight 170.00 lb Pain Level 4 BMI (Body Mass Index) 33.2 kg/m2 11/13/2014 Height 60 inches 5'0" Weight 169.00 lb w/shoes Heart Rate 58 /min BP Systolic Sitting 118 mmHg LA reg cuff BP Diastolic Sitting 64 mmHg LA reg cuff Respiratory Rate 14 /min BMI (Body Mass Index) 33.0 kg/m2 07/24/2014 Height 60 inches 5'0" Weight 171.00 lb Heart Rate 63 /min BP Systolic Sitting 118 mmHg LA, reg BP Diastolic Sitting 78 mmHg LA, reg BMI (Body Mass Index) 33.4 kg/m2 10/27/2013 Height 60 inches 5'0" Weight 175.00 lb Heart Rate 61 /min BP Systolic 109 mmHg BP Diastolic 67 mmHg BMI (Body Mass Index) 34.2 kg/m2 10/24/2013 Height 50.25 inches 4'2.25" Weight 174.00 lb with shoes 2 lb loss since last ov 10/20/13 Heart Rate 66 /min BP Systolic Sitting 102 mmHg LA reg cuff BP Diastolic Sitting 60 mmHg LA reg cuff BP Systolic Standing 100 mmHg LA reg cuff BP Diastolic Standing 60 mmHg LA reg cuff Respiratory Rate 16 /min BMI (Body Mass Index) 48.4 kg/m2 10/20/2013 Height 60 inches 5'0" Weight 177.00 lb Heart Rate 64 /min BP Systolic Sitting 104 mmHg BP Diastolic Sitting 58 mmHg BMI (Body Mass Index) 34.6 kg/m2 09/29/2013 Height 60 inches 5'0" Weight 180.00 lb Heart Rate 64 /min BP Systolic 127 mmHg BP Diastolic 78 mmHg BMI (Body Mass Index) 35.1 kg/m2 12/20/2012 Height 60.25 inches 5'0.25" Weight 183.00 lb Heart Rate 64 /min BP Systolic Sitting 160 mmHg BP Diastolic Sitting 72 mmHg Respiratory Rate 20 /min BMI (Body Mass Index) 35.4 kg/m2 05/11/2012 Weight 179.25 lb Heart Rate 72 /min BP Systolic 120 mmHg BP Diastolic 70 mmHg 02/03/2012 Height 61 inches 5'1" Weight 182.00 lb Heart Rate 64 /min BP Systolic 132 mmHg BP Diastolic 68 mmHg BMI (Body Mass Index) 34.4 kg/m2 07/01/2011 Height 61 inches 5'1" Weight 180.00 lb Heart Rate 64 /min BP Systolic 104 mmHg BP Diastolic 62 mmHg BMI (Body Mass Index) 34.0 kg/m2 11/18/2010 Height 60 inches 5'0" Weight 179.00 lb Heart Rate 68 /min BP Systolic 110 mmHg BP Diastolic 70 mmHg Respiratory Rate 16 /min BMI (Body Mass Index) 35.0 kg/m2 10/31/2010 Height 60 inches 5'0" Weight 181.00 lb Heart Rate 64 /min BP Systolic Sitting 110 mmHg BP Diastolic Sitting 62 mmHg BMI (Body Mass Index) 35.3 kg/m2 04/07/2010 Height 60 inches 5'0" Weight 178.00 lb Heart Rate 72 /min BP Systolic Sitting 140 mmHg BP Diastolic Sitting 60 mmHg BMI (Body Mass Index) 34.8 kg/m2 01/27/2010 Height 60 inches 5'0" Weight 174.00 lb Heart Rate 59 /min BP Systolic Sitting 106 mmHg BP Diastolic Sitting 60 mmHg BMI (Body Mass Index) 34.0 kg/m2 01/09/2010 Weight 173.00 lb Heart Rate 66 /min BP Systolic Sitting 116 mmHg BP Diastolic Sitting 64 mmHg O2 % BldC Oximetry 96 % 2l of oxygen via nc 12/12/2009 Weight 184.00 lb Heart Rate 88 /min BP Systolic Sitting 140 mmHg BP Diastolic Sitting 88 mmHg 11/12/2009 Weight 184.75 lb Heart Rate 70 /min BP Systolic 150 mmHg BP Diastolic 90 mmHg 07/08/2009 Weight 177.00 lb Heart Rate 68 /min BP Systolic Sitting 160 mmHg BP Diastolic Sitting 70 mmHg 05/30/2009 Weight 176.25 lb Heart Rate 80 /min BP Systolic Sitting 125 mmHg BP Diastolic Sitting 76 mmHg Body Temperature 97.9 F 02/25/2009 Weight 170.25 lb Heart Rate 88 /min BP Systolic Sitting 114 mmHg BP Diastolic Sitting 78 mmHg Body Temperature 97.5 F 01/02/2009 Height 60 inches 5'0" Weight 167.00 lb Heart Rate 64 /min BP Systolic Sitting 136 mmHg BP Diastolic Sitting 74 mmHg BMI (Body Mass Index) 32.6 kg/m2 12/06/2008 Height 60 inches 5'0" Weight 166.00 lb Heart Rate 72 /min BP Systolic Sitting 124 mmHg BP Diastolic Sitting 66 mmHg Body Temperature 97.5 F BMI (Body Mass Index) 32.4 kg/m2 11/28/2008 Weight 168.00 lb Heart Rate 78 /min BP Systolic Sitting 138 mmHg BP Diastolic Sitting 74 mmHg Respiratory Rate 16 /min Body Temperature 97.4 F 10/24/2008 Height 60 inches 5'0" Weight 162.00 lb Heart Rate 74 /min BP Systolic Sitting 130 mmHg BP Diastolic Sitting 68 mmHg BMI (Body Mass Index) 31.6 kg/m2 08/10/2008 Height 60 inches 5'0" Weight 166.00 lb Heart Rate 64 /min BP Systolic Sitting 128 mmHg BP Diastolic Sitting 62 mmHg Body Temperature 98.5 F BMI (Body Mass Index) 32.4 kg/m2 07/25/2008 Height 60 inches 5'0" Weight 167.00 lb Heart Rate 56 /min irregular BP Systolic Sitting 138 mmHg BP Diastolic Sitting 60 mmHg BMI (Body Mass Index) 32.6 kg/m2 07/18/2008 Height 60 inches 5'0" Weight 166.00 lb Heart Rate 76 /min BP Systolic Sitting 140 mmHg BP Diastolic Sitting 72 mmHg BMI (Body Mass Index) 32.4 kg/m2 05/17/2008 Height 60 inches 5'0" Weight 171.00 lb Heart Rate 80 /min BP Systolic Sitting 144 mmHg BP Diastolic Sitting 68 mmHg BMI (Body Mass Index) 33.4 kg/m2 Results Test Date Test Result H/L Range Note Lipid Profile (Trig/Chol/HDL) 07/07/2017 Triglycerides 69 mg/dL 1 Cholesterol 166 mg/dL 2 HDL Cholesterol 67.9 mg/dL 3 LDL Cholesterol 84 mg/dL 4 Comp Metabolic Panel 07/07/2017 Sodium 134 mmol/L 133-145 Potassium 4.4 mmol/L 3.5-5.0 Chloride 99 mmol/L Low 101-111 Co2 Carbon Dioxide 29 mmol/L 22-32 Anion Gap 6 mmol/L 2-11 Glucose 89 mg/dL 70-100 Blood Urea Nitrogen 17 mg/dL 6-24 Creatinine 0.82 mg/dL 0.51-0.95 BUN/Creatinine Ratio 20.7 High 8-20 Calcium 9.0 mg/dL 8.6-10.3 Total Protein 5.7 g/dL Low 6.4-8.9 Albumin 3.7 g/dL 3.2-5.2 Globulin 2.0 g/dL 2-4 Albumin/Globulin Ratio 1.9 1-3 Total Bilirubin 0.70 mg/dL 0.2-1.0 Alkaline Phosphatase 63 U/L 34-104 Alt 8 U/L 7-52 Ast 12 U/L Low 13-39 Egfr Non- 65.6 >60 Egfr 84.4 >60 5 Laboratory test finding 04/15/2010 Magnesium 1.6 mg/dL Low 1.7-2.6 Basic Metabolic Panel 04/15/2010 Sodium 139 mmol/L 135-145 Potassium 4.0 mmol/L 3.5-5.0 Chloride 101 mmol/L 101-111 Co2 (Carbon Dioxide) 30.0 mmol/L 22-32 Anion Gap 8.0 mmol/L 2-11 6 Glucose 94 mg/dL 70-100 7 BUN 15 mg/dL 6-24 Creatinine 1.10 mg/dL 0.50-1.40 One Over Creatinine 0.90 BUN/Creatinine Ratio 13.6 8-20 Calcium 9.5 mg/dL 8.1-9.9 eGFR Non- 50.5 > 60 eGFR 61.2 > 60 8 CBC With Electronic Diff 04/15/2010 White Blood Count 6.0 CUMM 4.8-10.8 Red Cell Count 3.98 CUMM Low 4.2-5.4 Hemoglobin 12.1 g/dL 12.0-16.0 Hematocrit 35 % 35-47 Mean Corpuscular Volume 88 um3 79-97 Mean Corpuscular Hemoglob 31 pg 27-31 Mean Corpuscular HGB Cone 35 g/dL 32-36 Redcell Distribution WDTH 14 % 10.5-15 Platelet Count 303 CUMM 150-450 Mean Platelet Volume 6.6 um3 Low 7.4-10.4 Gran % 64.1 % 38-83 Lymph % 26.3 % 25-47 Mononuclear % 7.8 % 1-9 Eosinophil % 1.5 % 0-6 Basophil % 0.3 % 0-2 Abs Lymphs 1.6 1.0-4.8 Abs Mononuclear 0.5 0-0.8 Absolute Neutrophil Count 3.8 1.5-7.7 Abs Eosinophils 0.1 0-0.6 Abs Basophils 0 0-0.2 Urinalysis W/Microscopic 12/29/2009 Ua Color YELLOW Yellow Appearance-Urine CLEAR Clear Specific [place]-Ur 1.008 Low 1.010-1.030 Esterase-Urine NEGATIVE Negative Nitrite NEGATIVE Negative Axvvwnsihzsd-Wj-ZIO NEGATIVE Negative Protein-Urine NEGATIVE Negative PH-Urine 6.0 5-9 Blood-Urine TRACE Negative Ketones-Urine NEGATIVE Negative Bilirubin-Ur NEGATIVE Negative Glucose-Urine NEGATIVE Negative WBC-Urine 0-2 0-5 RBC-Urine 3-5 0-2 Epith Cells-Ur RARE None Protime 12/29/2009 Inr 1.08 High 0.97-1.03 9 Protime 12.8 SEC High 11.5-12.2 10 Laboratory test finding 12/29/2009 PTT (Aptt) 27.1 25.15-38.53 11 BNP Evaluatr 788.0 pg/mL High 0-100 Comp Metabolic Panel 12/29/2009 Sodium 139 mmol/L 135-145 Potassium 3.6 mmol/L 3.5-5.0 Chloride 105 mmol/L 101-111 Co2 (Carbon Dioxide) 27.0 mmol/L 22-32 Anion Gap 7.0 mmol/L 2-11 12 Glucose 119 mg/dL High 70-100 13 BUN 13 mg/dL 6-24 Creatinine 0.82 mg/dL 0.50-1.40 One Over Creatinine 1.20 BUN/Creatinine Ratio 15.9 8-20 Calcium 9.3 mg/dL 8.1-9.9 14 Total Protein 6.6 GM/DL 6.2-8.1 Albumin 3.8 GM/DL 3.2-5.2 Globulin 2.8 GM/DL 2-4 Albumin/Globulin Ratio 1.4 1-3 Bilirubin Total 0.7 mg/dL 0.4-1.5 15 Alkaline Phosphatase 86 U/L 30-110 Alt (SGPT) 14 U/L 14-54 Ast (Sgot) 23 U/L 12-42 eGFR Non- 71.1 > 60 eGFR 86.0 > 60 16 Laboratory test finding 12/29/2009 Magnesium 1.4 mg/dL Low 1.7-2.6 Troponin-I (TnI) 0.08 NG/ML High 17 CBC With Electronic Diff 12/29/2009 White Blood Count 6.3 CUMM 4.8-10.8 18 Red Cell Count 4.39 CUMM 4.2-5.4 18 Hemoglobin 12.6 g/dL 12.0-16.0 18 Hematocrit 37 % 35-47 18 Mean Corpuscular Volume 84 um3 79-97 18 Mean Corpuscular Hemoglob 29 pg 27-31 18 Mean Corpuscular HGB Cone 34 g/dL 32-36 18 Redcell Distribution WDTH 15 % 10.5-15 18 Platelet Count 293 CUMM 150-450 18 Mean Platelet Volume 7.5 um3 7.4-10.4 18 Gran % 82.0 % 38-83 18 Lymph % 14.1 % Low 25-47 18 Mononuclear % 3.1 % 1-9 18 Eosinophil % 0.5 % 0-6 18 Basophil % 0.3 % 0-2 18 Abs Lymphs 0.9 Low 1.0-4.8 18 Abs Mononuclear 0.2 0-0.8 18 Absolute Neutrophil Count 5.1 1.5-7.7 18 Abs Eosinophils 0 0-0.6 18 Abs Basophils 0 0-0.2 18, 19 CBC With Electronic Diff 11/14/2009 White Blood Count 5.3 CUMM 4.8-10.8 Red Cell Count 4.51 CUMM 4.2-5.4 Hemoglobin 13.1 g/dL 12.0-16.0 Hematocrit 38 % 35-47 Mean Corpuscular Volume 85 um3 79-97 Mean Corpuscular Hemoglob 29 pg 27-31 Mean Corpuscular HGB Cone 34 g/dL 32-36 Redcell Distribution WDTH 15 % 10.5-15 Platelet Count 297 CUMM 150-450 Mean Platelet Volume 7.2 um3 Low 7.4-10.4 Gran % 68.9 % 38-83 Lymph % 22.7 % Low 25-47 Mononuclear % 6.8 % 1-9 Eosinophil % 1.4 % 0-6 Basophil % 0.2 % 0-2 Abs Lymphs 1.2 1.0-4.8 Abs Mononuclear 0.4 0-0.8 Absolute Neutrophil Count 3.6 1.5-7.7 Abs Eosinophils 0.1 0-0.6 Abs Basophils 0 0-0.2 Comp Metabolic Panel 11/14/2009 Sodium 137 mmol/L 135-145 Potassium 4.0 mmol/L 3.5-5.0 Chloride 104 mmol/L 101-111 Co2 (Carbon Dioxide) 28.0 mmol/L 22-32 Anion Gap 5.0 mmol/L 2-11 20 Glucose 111 mg/dL High 70-100 21 BUN 11 mg/dL 6-24 Creatinine 1.00 mg/dL 0.50-1.40 One Over Creatinine 1.00 BUN/Creatinine Ratio 11.0 8-20 Calcium 9.1 mg/dL 8.1-9.9 22 Total Protein 5.8 GM/DL Low 6.2-8.1 Albumin 3.6 GM/DL 3.2-5.2 Globulin 2.2 GM/DL 2-4 Albumin/Globulin Ratio 1.6 1-3 Bilirubin Total 0.6 mg/dL 0.4-1.5 23 Alkaline Phosphatase 87 U/L 30-110 Alt (SGPT) 13 U/L Low 14-54 Ast (Sgot) 19 U/L 12-42 eGFR Non- 56.6 > 60 eGFR 68.4 > 60 24 Lipid Profile (Trig/Chol/HDL) 11/14/2009 Triglyceride 146 mg/dL 40-200 Cholesterol 258 mg/dL High Less Than 200 25 High Density Lipoprotein 44 mg/dL 40-60 26 Cholesterol/HDL Ratio 5.86 AVERAGE High 1-4.44 Low Density Lipoprotein 185 mg/dL High Less Than 100 27 Laboratory test finding 11/14/2009 TSH 1.30 MIU/ML 0.34-5.60 Urinalysis W/Microscopic 11/14/2009 Ua Color YELLOW Yellow Appearance-Urine CLEAR Clear Specific [place]-Ur 1.020 1.010-1.030 Esterase-Urine 1+ Negative Nitrite NEGATIVE Negative Aaryriixrgav-Cr-UPC NEGATIVE Negative Protein-Urine NEGATIVE Negative PH-Urine 6.0 5-9 Blood-Urine TRACE Negative Ketones-Urine NEGATIVE Negative Bilirubin-Ur NEGATIVE Negative Glucose-Urine NEGATIVE Negative WBC-Urine 0-2 0-5 RBC-Urine 0-2 0-2 Mucus Urine SMALL None Urine Culture & 11/14/2009 Urine Culture Sensitivi NF1 28 Sensitivi CBC With Manual Diff 08/26/2009 White Blood Count 5.5 CUMM 4.8-10.8 Red Cell Count 4.63 CUMM 4.2-5.4 Hemoglobin 13.4 g/dL 12.0-16.0 Hematocrit 40 % 35-47 Mean Corpuscular Volume 86 um3 79-97 Mean Corpuscular Hemoglob 29 pg 27-31 Mean Corpuscular HGB Cone 34 g/dL 32-36 Redcell Distribution WDTH 15 % 10.5-15 Platelet Count 295 CUMM 150-450 Mean Platelet Volume 6.9 um3 Low 7.4-10.4 Polysegmented Neutrophil 76 % 38-83 Band Neutrophil 3 % 0-8 Lymphocyte 17 % Low 25-47 Monocyte 4 % 0-13 Absolute Neutrophil Count 4.3 RBC Morphology NORMAL Comp Metabolic Panel 08/26/2009 Sodium 141 mmol/L 135-145 Potassium 4.0 mmol/L 3.5-5.0 Chloride 105 mmol/L 101-111 Co2 (Carbon Dioxide) 30.0 mmol/L 22-32 Anion Gap 6.0 mmol/L 2-11 29 Glucose 107 mg/dL High 70-100 30 BUN 11 mg/dL 6-24 Creatinine 1.00 mg/dL 0.50-1.40 One Over Creatinine 1.00 BUN/Creatinine Ratio 11.0 8-20 Calcium 10.0 mg/dL High 8.1-9.9 31 Total Protein 6.1 GM/DL Low 6.2-8.1 Albumin 3.9 GM/DL 3.2-5.2 Globulin 2.2 GM/DL 2-4 Albumin/Globulin Ratio 1.8 1-3 Bilirubin Total 0.7 mg/dL 0.4-1.5 32 Alkaline Phosphatase 87 U/L 30-110 Alt (SGPT) 15 U/L 14-54 Ast (Sgot) 21 U/L 12-42 eGFR Non- 56.6 > 60 eGFR 68.4 > 60 33 Urinalysis W/Microscopic Stat 03/01/2009 Ua Color YELLOW Appearance-Urine CLEAR Specific [place]-Ur 1.008 Low 1.010-1.030 Esterase-Urine 1+ Negative Nitrite NEGATIVE Negative Fkennumklbsq-Pr-BGV NEGATIVE Negative Protein-Urine NEGATIVE Negative PH-Urine 6.0 5-9 Blood-Urine NEGATIVE Negative Ketones-Urine NEGATIVE Negative Bilirubin-Ur NEGATIVE Negative Glucose-Urine NEGATIVE Negative WBC-Urine 2-5 0-5 RBC-Urine 0-2 0-2 Epith Cells-Ur OCCASIONAL Bacteria-Urine 1+ Laboratory test 03/01/2009 Urine Culture ENTEROBACTER AER 34 finding Sensitivi <SEE NOTE> Ursc-1 03/01/2009 Ampicillin >=8 Amikacin <=2 Ciprofloxacin <=0.25 Ceftriaxone <=1 Cefazolin >=64 Nitrofurantoin 128 Gentamicin <=1 Imipenem <=1 Levofloxacin <=0.12 Trimeth-Sulfa <=20 Ceftazidime <=1 Tigecycline <=0.5 Piperacillin/Tazobactam <=4 CBC With Electronic Diff 09/26/2008 White Blood Count 4.9 CUMM 4.8-10.8 Red Cell Count 4.38 CUMM 4.2-5.4 Hemoglobin 12.1 g/dL 12.0-16.0 Hematocrit 36 % 35-47 Mean Corpuscular Volume 83 um3 79-97 Mean Corpuscular Hemoglob 28 pg 27-31 Mean Corpuscular HGB Cone 33 g/dL 32-36 Redcell Distribution WDTH 17 % High 10.5-15 Platelet Count 270 CUMM 150-450 Mean Platelet Volume 7.5 um3 7.4-10.4 Gran % 63.4 % 38-83 Lymph % 28.4 % 25-47 Mononuclear % 6.7 % 1-9 Eosinophil % 1.4 % 0-6 Basophil % 0.1 % 0-2 Abs Lymphs 1.4 1.0-4.8 Abs Mononuclear 0.3 0-0.8 Absolute Neutrophil Count 3.1 1.5-7.7 Abs Eosinophils 0.1 0-0.6 Abs Basophils 0 0-0.2 Laboratory test finding 09/26/2008 Vitamin B12 457 pg/mL 180-914 Laboratory test finding 08/24/2008 Stool For Blood NEGATIVE Negative Laboratory test finding 08/22/2008 Stool For Blood NEGATIVE Negative Stool For Blood 08/21/2008 Stool For Blood NEGATIVE Negative Reticolocyte Count 07/25/2008 Red Cell Count 4.24 CUMM 4.2-5.4 Hemoglobin 11.4 g/dL Low 12.0-16.0 Hematocrit 34 % Low 35-47 Reticulocyte Count 1.46 % 0.5-1.5 Corrected Retic 1.1 % 0.5-1.5 Retic Index 0.7 Mean Retic Volume 110.6 Immature Retic Fraction 0.46 RBC Retic Count 4.24 CUMM Low 4.6-6.2 Hematocrit For Retic Coun 34 % Low 35-47 Vitamin B12 And Folate Serum 07/25/2008 Vitamin B12 168 pg/mL Low 180-914 Folic Acid 10.8 NG/ML 2-16 Laboratory test finding 07/25/2008 Ferritin 26 NG/ML 11.0-307 Iron & Iron Binding Capacity 07/25/2008 Iron Total 51 g/dL 28-170 Unsaturated Iron Binding 316 g/dL Total Iron Binding Capacity 367 g/dL 250-450 % Iron Saturation 14 % Low 15-55 Morph 05/17/2008 Anisocytosis 1+ Hypochromasia SLIGHT Basic Metabolic Panel 05/17/2008 Sodium 142 mmol/L 135-145 Potassium 4.1 mmol/L 3.5-5.0 Chloride 106 mmol/L 101-111 Co2 (Carbon Dioxide) 29.0 mmol/L 22-32 Anion Gap 7.0 mmol/L 2-11 35 Glucose 93 mg/dL 70-100 36 BUN 9 mg/dL 6-24 Creatinine 1.1 mg/dL 0.5-1.4 One Over Creatinine 0.90 BUN/Creatinine Ratio 8.2 8-20 Calcium 9.1 mg/dL 8.1-9.9 37 Laboratory test finding 05/17/2008 TSH 1.28 MIU/ML 0.34-5.60 CBC With Electronic Diff 05/17/2008 White Blood Count 4.9 CUMM 4.8-10.8 Red Cell Count 3.51 CUMM Low 4.2-5.4 Hemoglobin 9.9 g/dL Low 12.0-16.0 Hematocrit 30 % Low 35-47 Mean Corpuscular Volume 85 um3 79-97 Mean Corpuscular Hemoglob 28 pg 27-31 Mean Corpuscular HGB Cone 33 g/dL 32-36 Redcell Distribution WDTH 18 % High 10.5-15 Platelet Count 453 CUMM High 150-450 Mean Platelet Volume 7.2 um3 Low 7.4-10.4 Gran % 67.1 % 38-83 Lymph % 24.7 % 20-45 Mononuclear % 6.8 % 1-9 Eosinophil % 1.0 % 0-6 Basophil % 0.4 % 0-2 Abs Lymphs 1.2 1.0-4.8 Abs Mononuclear 0.3 0-0.8 Absolute Neutrophil Count 3.3 1.5-7.7 Abs Eosinophils 0 0-0.6 Abs Basophils 0 0-0.2 38 1 Desirable: <150 Borderline High: 150-199 High: 200-499 Very High: >500 2 Desirable: <200 Borderline High: 200-239 High: >239 3 Low: <40 Desirable: 40-60 High: >60 4 Desirable: <100 Near Optimal: 100-129 Borderline High: 130-159 High: 160-189 Very High: >189 5 Because ethnic data is not always readily available, this report includes an eGFR for both -Americans and non- Americans. The National Kidney Disease Education Program (NKDEP) does not endorse the use of the MDRD equation for patients that are not between the ages of 18 and 70, are , have extremes of body size, muscle mass, or nutritional status, or are non- or non-. According to the National Kidney Foundation, irrespective of diagnosis, the stage of the disease is based on the level of kidney function: Stage Description GFR(mL/min/1.73 m(2)) 1 Kidney damage with normal or decreased GFR 90 2 Kidney damage with mild decrease in GFR 60-89 3 Moderate decrease in GFR 30-59 4 Severe decrease in GFR 15-29 5 Kidney failure <15 (or dialysis) 6 Anion gap measurement may be of limited value in the presence of any alkalosis, especially in a combined acid base disorder. . 7 Note change in reference range as of 03/29/08. The change was based on recommendations from the [place] [employer]. 8 Because ethnic data is not always readily available, this report includes an eGFR for both -Americans and non- Americans. The National Kidney Disease Education Program (NKDEP) does not endorse the use of the MDRD equation for patients that are not between the ages of 18 and 70, are , have extremes of body size, muscle mass, or nutritional status, or are non- or non-. According to the National Kidney Foundation, irrespective of diagnosis, the stage of the disease is based on the level of kidney function: Stage Description GFR(mL/min/1.73 m(2)) 1 Kidney damage with normal or decreased GFR 90 2 Kidney damage with mild decrease in GFR 60-89 3 Moderate decrease in GFR 30-59 4 Severe decrease in GFR 15-29 5 Kidney failure <15 (or dialysis) 9 Recommended INR for Patients on Oral Anticoagulants Prophylaxis 2.0 - 3.0 Treatment of thrombosis 2.0 - 3.0 Prevention of embolism 2.0 - 3.0 Prevention of embolism from prosthetic heart valves 2.5 - 3.5 10 DIAGNOSIS,TREATMENT,AND THERAPY MUST BE BASED ON THE INR VALUE ALONE. 11 PLEASE NOTE NEW REFERENCE RANGE EFFECTIVE 09. 12 Anion gap measurement may be of limited value in the presence of any alkalosis, especially in a combined acid base disorder. . 13 Note change in reference range as of 03/29/08. The change was based on recommendations from the [place] [employer]. 14 Please note change in reference range effective 08 . 15 A metabolite of Naproxen, O-desmethylnaproxen, has been shown to interfere with the Jendrassik-Graford method for measuring total bilirubin. Samples from patients who have taken Naproxen have shown spurious elevation in total bilirubin levels. 16 Because ethnic data is not always readily available, this report includes an eGFR for both -Americans and non- Americans. The National Kidney Disease Education Program (NKDEP) does not endorse the use of the MDRD equation for patients that are not between the ages of 18 and 70, are , have extremes of body size, muscle mass, or nutritional status, or are non- or non-. According to the National Kidney Foundation, irrespective of diagnosis, the stage of the disease is based on the level of kidney function: Stage Description GFR(mL/min/1.73 m(2)) 1 Kidney damage with normal or decreased GFR 90 2 Kidney damage with mild decrease in GFR 60-89 3 Moderate decrease in GFR 30-59 4 Severe decrease in GFR 15-29 5 Kidney failure <15 (or dialysis) 17 RESULTS VERIFIED BY REPEAT ANALYSIS ON THE SAME SAMPLE. REPEATED RESULT IS:0.08@ VERBAL TO LUZ MARIA BY BM at 1058 on 12/29/09 that panic result(s) have been read back accurately. New Reference Range and Interpretation effective 05/12/2002 TnI (ng/ml) INTERPRETATION Less Than 0.06 ng/mL NOT SUPPORTIVE OF DIAGNOSIS OF [place] 0.06 - 0.50 ng/ml INDETERMINATE: SUGGEST SERIAL STUDIES IF CLINICALLY INDICATED. Greater than 0.5 ng/mL CONSISTENT WITH DIAGNOSIS OF [place] . 18 COMMENTS: N 19 Lymphopenia % 20 Anion gap measurement may be of limited value in the presence of any alkalosis, especially in a combined acid base disorder. . 21 Note change in reference range as of 03/29/08. The change was based on recommendations from the [place] [employer]. 22 Please note change in reference range effective 08 . 23 A metabolite of Naproxen, O-desmethylnaproxen, has been shown to interfere with the Jendrassik-Graford method for measuring total bilirubin. Samples from patients who have taken Naproxen have shown spurious elevation in total bilirubin levels. 24 Because ethnic data is not always readily available, this report includes an eGFR for both -Americans and non- Americans. The National Kidney Disease Education Program (NKDEP) does not endorse the use of the MDRD equation for patients that are not between the ages of 18 and 70, are , have extremes of body size, muscle mass, or nutritional status, or are non- or non-. According to the National Kidney Foundation, irrespective of diagnosis, the stage of the disease is based on the level of kidney function: Stage Description GFR(mL/min/1.73 m(2)) 1 Kidney damage with normal or decreased GFR 90 2 Kidney damage with mild decrease in GFR 60-89 3 Moderate decrease in GFR 30-59 4 Severe decrease in GFR 15-29 5 Kidney failure <15 (or dialysis) 25 CHOLESTEROL INTERPRETATION: Desirable: Less than 200 MG/DL Borderline-High Risk: 200-239 MG/DL High-Risk: 240 MG/DL and over 26 HDL INTERPRETATION: Undesirable: High Risk: Less than 40 MG/DL Desirable: Low Risk: Greater than 60 MG/DL 27 LDL INTERPRETATION: Low Risk Optimal Level: LDL Less than 100 MG/DL Near or Above Optimal: LDL 100-129 MG/DL Borderline High Risk: LDL 130-159 MG/DL High Risk: LDL 160-189 MG/DL Very High Risk: LDL Greater than 189 MG/DL 28 SPECIMEN CONTAINS NORMAL URETHRAL OR PERINEAL RYAN AND DOES NOT SUGGEST URINARY TRACT INFECTION 29 Anion gap measurement may be of limited value in the presence of any alkalosis, especially in a combined acid base disorder. . 30 Note change in reference range as of 03/29/08. The change was based on recommendations from the [place] [employer]. 31 Please note change in reference range effective 08 . 32 A metabolite of Naproxen, O-desmethylnaproxen, has been shown to interfere with the Jendrassik-Graford method for measuring total bilirubin. Samples from patients who have taken Naproxen have shown spurious elevation in total bilirubin levels. 33 Because ethnic data is not always readily available, this report includes an eGFR for both -Americans and non- Americans. The National Kidney Disease Education Program (NKDEP) does not endorse the use of the MDRD equation for patients that are not between the ages of 18 and 70, are , have extremes of body size, muscle mass, or nutritional status, or are non- or non-. According to the National Kidney Foundation, irrespective of diagnosis, the stage of the disease is based on the level of kidney function: Stage Description GFR(mL/min/1.73 m(2)) 1 Kidney damage with normal or decreased GFR 90 2 Kidney damage with mild decrease in GFR 60-89 3 Moderate decrease in GFR 30-59 4 Severe decrease in GFR 15-29 5 Kidney failure <15 (or dialysis) 34 ENTEROBACTER AEROGENES 35 Anion gap measurement may be of limited value in the presence of any alkalosis, especially in a combined acid base disorder. . 36 Note change in reference range as of 03/29/08. The change was based on recommendations from the [place] [employer]. 37 Please note change in reference range effective 08 . 38 Anemia 1+ Anisocytosis Procedures Date CPT Code Description Status 09/15/2017 31051 Holter Monitor Review (24 hr)dr rome & ro Completed only 09/13/2017 92646 ECG Monitor/Recording W/Visual Superimposition Scanning Completed 08/27/2017 95314 Sleep Study Unattended,HRT Rate,Oxygen Sat,Resp Completed Effort/Airflow 07/19/2017 68956 EKG Tracing & Interpretation Completed 06/29/2017 18683 Inject/Drain Joint/Bursa Major Completed 02/26/2017 86269 EKG Tracing & Interpretation Completed 01/21/2017 83752 ECHO Transthorasic Realtime 2D W Doppler & Color Completed Flow Hosp 08/25/2016 73309 Holter Monitor Review (24 hr)dr rome & ro Completed only 08/24/2016 36265 ECG Monitor/Recording W/Visual Superimposition Scanning Completed 01/20/2016 64362 EKG Tracing & Interpretation Completed 05/20/2015 77767 ECHO Transthoracic, Real-Time 2D With Doppler And Color Completed Flow 05/10/2015 25093 EKG Tracing & Interpretation Completed 05/08/2015 45238 Inject/Drain Joint/Bursa Major Completed 07/24/2014 76267 EKG Tracing & Interpretation Completed 10/20/2013 68672 EKG Tracing & Interpretation Completed 09/29/2013 93710 Xray Knee 3 Views Completed 09/29/201371867 Inject/Drain Joint/Bursa Major Completed 09/28/2013 07655 ECHO Transthoracic, Real-Time 2D With Doppler And Color Completed Flow 12/20/2012 40216 EKG Tracing & Interpretation Completed 11/29/2012 27408 ECHO Transthoracic, Real-Time 2D With Doppler And Color Completed Flow 05/11/2012 65653 EKG Tracing & Interpretation Completed 04/07/201232813 Inject/Drain Joint/Bursa Major Completed 02/12/2012 Inject/Drain Joint/Bursa Major Completed 02/03/2012 88879 Holter Monitor Review (24 hr)dr rome & ro Completed only 02/03/2012 72868 Holter Monitor Review (24 hr)dr rome & ro Completed only 07/01/2011 32110 EKG Tracing & Interpretation Completed 11/11/2010 80390 Left Heart Cath. Incl S/I Coronaries, Angio S/I V Gram Completed If Done 11/11/2010 16488 Cath PLMT&NJX L Ventriculog Img S&I Completed 10/31/2010 66411 EKG Tracing & Interpretation Completed 10/07/2010 47562 ECHO Transthoracic, Real-Time 2D With Doppler And Color Completed Flow 04/03/2010 46743 ECHO Transthoracic, Real-Time 2D With Doppler And Color Completed Flow 01/27/2010 03153 EKG Tracing & Interpretation Completed 01/09/2010 44890 Noninvasive Ear Or Pulse Oximetry For Oxygen Saturation Completed 12/30/2009 55247 EKG, Interpretation Only Completed 12/29/2009 81893 ECHO Transthorasic Realtime 2D W Doppler & Color Completed Flow Hosp 12/10/2009 65568 Treadmill Interp/Report Only Completed 12/10/2009 27216 Stress Test Supervsn W/Out I/R Completed 11/14/2009 Bone Mineral Density Test Completed 11/12/2009 36761 EKG Tracing & Interpretation Completed 08/26/2009 Mammogram Completed 09/17/2008 30402 Admin Of Inj 2008 Only Completed 09/17/2008 45783 Admin Of Inj Completed 08/24/2008 Mammogram Completed 08/14/2008 93789 Admin Of Inj Completed 08/14/2008 83542 Admin Of Inj Completed 08/14/2008 49854 Admin Of Inj 2008 Only Completed 08/07/2008 73790 Admin Of Inj 2008 Only Completed 08/07/2008 04064 Admin Of Inj 2008 Only Completed 07/31/2008 16085 Admin Of Inj 2008 Only Completed 07/31/2008 07279 Admin Of Inj 2008 Only Completed 04/08/2007 73617 EKG, Interpretation Only Completed Encounters Type Date Location Provider CPT E/M Dx Office Visit 08/27/2017 [facility] [place] [address] G47.33 11:00a [facility] E66.09 Z68.30 Office Visit 08/27/2017 3:30p [facility] Reina Franklin M.D. 13417 F03.90 [facility] Office Visit 07/19/2017 9:30a [facility] TRANG Johnson 33905 I10 I25.10 I49.3 Office Visit 07/14/2017 8:40a [facility] [place] [address] F41.9 [place] Office Visit 06/29/2017 10:00a [facility] [address] M19.011 C.M.A. M19.012 M17.12 Z96.651 Office Visit 06/02/2017 9:40a [facility] [place] [address] F41.9 [place] G47.30 M25.562 M25.511 M25.512 M25.561 Office Visit 05/28/2017 11:15a [facility] Reina Franklin M.D. 02237 G31.84 [facility] F41.9 Office Visit 02/26/2017 10:40a [facility] Loanybjaye Salinas 81357 I10 Dorie I25.10 I34.0 I49.3 Office Visit 01/21/2017 8:04a [facility], Renetta Goldman 62310 R55 Hospitalists M.DAlonso R74.8 R00.1 I10 Office Visit 01/20/2017 8:01a [facility], Renetta Goldman 12634 R55 Hospitalists M.DAlonso R00.1 R74.8 I10 Office Visit 01/20/2017 1:00p [facility] Reina Franklin M.D. 31262 G31.84 [facility] Office Visit 11/09/2016 11:40a [facility] Qutaybjaye SAlonso 00893 I10 Dorie Salinas I25.10 G31.84 I34.0 I49.3 Office Visit 07/23/2016 9:30a [facility] TRANG Johnson 78349 I10 I25.10 R29.6 R00.1 Office Visit 07/22/2016 10:00a [facility] Reina Franklin M.D. 12592 G31.84 [facility] [employer] R29.6 Office Visit 01/20/2016 11:20a [facility] Duke Salinas, 42134 R06.02 M.DAlonso I25.10 I10 I34.0 R00.1 Office Visit 01/15/2016 2:15p [facility] Reina Franklin M.D. 32942 G31.84 [facility] R29.6 Office Visit 08/15/2015 11:00a [facility] Reina Franklin M.D. 73303 G31.84 [facility] R29.6 Office Visit 07/01/2015 9:00a [facility] Reina Franklin M.D. 29610 R41.89 [facility] [employer] R29.6 Office Visit 05/23/2015 10:30a [facility] TRANG Johnson 34425DWU R06.02 I42.9 I27.2 I25.10 I34.0 Office Visit 05/10/2015 10:00a [facility] Duke Salinas, 47205 I25.10 MAlonsoDAlonso I34.0 I10 I42.9 R06.02 Office Visit 05/08/2015 3:00p [facility] Panfilo Schmidt M.D. 68200 M19.012 C.M.A. M19.012 Office Visit 11/13/2014 11:00a [facility] TRANG Johnson 95195 414.01 424.0 401.1 397.0 272.0 Office Visit 07/24/2014 10:40a [facility] Duke Sal[place], 56870 414.01 MAlonsoDAlonso 424.0 401.1 397.0 272.0 Office Visit 10/27/2013 11:15a [facility] Anay Melchor M.D. 09517 715.96 C.M.A. Office Visit 10/24/2013 11:00a [facility] TRANG Johnson 36241 425.9 414.01 424.0 782.3 Office Visit 10/20/2013 10:40a [facility] Lloydtaybeh S. Rita, 51633 401.1 M.DAlonso 425.9 414.01 424.0 397.0 272.0 782.3 Office Visit 09/29/2013 1:00p [facility] Anay Melchor M.D. 84692 715.96 C.M.A. Office Visit 12/20/2012 10:20a [facility] Qutaybjaye S. 72530 401.1 Dorie Salinas 425.9 414.01 272.0 424.0 397.0 427.69 794.31 Office Visit 06/16/2012 2:15p [facility] Giovany Rodgers M.D. 17867 715.91 C.M.A. Office Visit 05/11/2012 11:30a [facility] Reina Avalos, 36818 401.1 N.P. 427.69 425.9 Office Visit 05/05/2012 1:30p [facility] Jabier Brown 09602 716.91 Of C.M.A. Stephani Maldonado Office Visit 04/07/2012 3:15p [facility] Giovany Rodgers M.D. 06692 715.91 Of C.M.A. Office Visit 02/26/2012 11:45a [facility] Giovany Rodgers M.D. 74166 716.81 Of C.M.A. Office Visit 02/12/2012 10:30a [facility] Giovany Rodgers M.D. 45341 715.91 Of C.M.A. 716.81 Office Visit 02/03/2012 2:00p [facility] Lloydtaybjaye SAlonso [place] 10207 414.01 Dorie 401.1 794.31 401.9 427.69 Office Visit 01/22/2012 10:15a [facility] Giovany Rodgers M.D. 42790 840.4 C.M.A. Office Visit 07/01/2011 3:40p [facility] Lloydtaybjaye SAlonso 96646 414.01 Dorie Salinas 401.1 425.9 794.31 401.9 Office Visit 11/18/2010 4:15p [facility] Lloydtaybjaye S. Joseah, 12522 414.01 M.D. 401.1 425.9 272.0 Office Visit 11/11/2010 9:30a [facility] Qutaybeh S. Thomasydah, 15642 794.31 M.D. 414.01 401.1 786.50 Office Visit 10/31/2010 10:00a [facility] Lloydtaybeh S. Joseah, 11611 425.9 M.D. 401.9 786.50 272.0 Office Visit 04/07/2010 3:20p [facility] Qutaybeh S. Thomasydah, 85269 401.9 M.D. 425.9 414.9 272.0 Office Visit 01/27/2010 1:40p [facility] Lloydtaybjaye S. Thomasydah, 37385 428.0 M.D. 414.9 401.9 425.9 272.0 Office Visit 01/09/2010 3:00p DO Not Use [facility] CorporationTremayneir, [address] [facility] M.DAlonso 414.9 401.9 425.9 786.09 780.93 272.0 530.81 799.02 496 Office Visit 01/01/2010 1:30a [facility],belen Graham M.D. 49622 428.0 Hospitalists 414.9 401.9 272.4 Office Visit 12/31/2009 1:30a [facility],belen Graham M.D. 96567 428.0 Hospitalists 414.9 401.9 272.4 Office Visit 12/30/2009 1:45a [facility],belen Graham M.D. 25568 428.0 Hospitalists 790.99 414.9 786.09 Office Visit 12/29/2009 2:30a [facility],belen Graham M.D. 18226 428.0 Hospitalists 790.99 786.09 Office Visit 12/12/2009 1:00p DO Not Use [facility] Stevanovic, Radomir, 49836 401.1 [place] M.D. 780.93 428.9 733.01 272.0 Office Visit 12/10/2009 8:00a Ladarius [place], 14949 794.31 M.D. 786.50 401.1 Office Visit 11/12/2009 10:00a DO Not Use [facility] [place] Milesomir, 61746 401.1 [place] M.D. 780.93 Office Visit 07/08/2009 2:40p DO Not Use [facility] [employer] [facility], Alissa, 53129 786.2 [place] M.D. 401.1 Office Visit 05/30/2009 3:40p DO Not Use [facility] [employer] [facility], Alissa, 36957 786.2 [place] M.D. 784.91 401.1 V04.81 Office Visit 02/25/2009 11:00a DO Not Use [facility] [employer] [facility], Alissa, 54553 788.41 [place] M.D. 401.1 Office Visit 01/02/2009 10:20a DO Not Use [facility] [employer] [facility], Alissa, 16756 786.2 [place] M.D. Office Visit 12/06/2008 1:20p DO Not Use [employer] [facility] [employer] [facility] [place], Alissa, 17360 784.91 [place] M.D. 786.2 Office Visit 11/28/2008 9:40a DO Not Use [facility] [employer] [facility] Joshua Riggins, 00744 486 [place] M.D.,FACP Office Visit 10/24/2008 11:00a DO Not Use [facility] [employer] [facility], Alissa, 33071 281.9 [place] M.D. 780.79 780.93 Office Visit 08/10/2008 11:30a DO Not Use [employer] [facility] [employer] [facility], Alissa, 67980 680.2 [place] M.D. Office Visit 07/25/2008 11:00a DO Not Use [facility] [employer] [facility], Alissa, 03672 782.1 [place] M.D. 281.9 Office Visit 07/18/2008 9:00a DO Not Use [employer] [facility] [employer] [facility], Alissa, 73704 727.1 [place] M.D. 401.1 780.79 Office Visit 05/17/2008 9:00a DO Not Use [facility] Alissa Garza, [address] [facility].Jesu 530.81 719.46 715.16 780.79 V04.81 Plan of Care Future Appointment(s):03/04/2018 3:15 pm - Reina Franklin M.D. at [facility] 10:00 am - Malu Shanks DNP, RN, [employer]- [facility] at [facility] [facility]03/21/2018 2:00 pm - Wisam Kimball NP at [facility] - [place]72/01/2018 - Mimi Parson, N.P.I49.3 Ventricular premature depolarizationNew Medication:Metoprolol Succinate ER 25 mgI49.1 Atrial premature imciqlcapgkvxoE11.1 Supraventricular tachycardiaReferral:Garrick Casillas MD, Cardiac ElectrophyslgyFollow up:1-2 months after testing complete.Recommendations:Start 12.5 mg (1/2 tab) of Toprol twice daily. Please call if any worsening dizziness, pre-syncope, syncope. Have electrolytes checked. We have referred you to see a heart doctor who specializes in arrhythmias. He has a clinic 1x month in [place]. We will recheck your heart rhythm with a monitor in about two weeks. Please wear CPAP every night. 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
[2017-10-17 20:11] LABS: ABS Basophils 0 10^3/ul (0-0.2); ABS Eosinophils 0.1 10^3/ul (0-0.6); ABS Monocytes 0.6 10^3/ul (0-0.8); ABS Neutrophils 3.5 10^3/ul (1.5-7.7); ABS Nucleated RBC 0 10^3/ul; Eosinophil % 1.6 % (0-6); Hematocrit 39 % (35-47); Lymphocyte % 19.7 % (25-47); Mean Corpuscular HGB Conc 34 g/dl (31-36); Mean Corpuscular Hemoglobin 29 pg (27-31); Mean Corpuscular Volume 85 fL (80-97); Mean Platelet Volume 7 um3 (7.4-10.4); Nucleated Red Blood Cells % 0.2; Platelet Count 243 10^3/ul (150-450); Red Blood Count 4.53 10^6/ul (4.0-5.4); Red Cell Distribution Width 15 % (10.5-15); White Blood Count 5.3 10^3/ul (3.5-10.8)
[2017-10-17 20:23] LABS: EGFR Non-African American 67.5 (>60)
--- NOTE | 2017-10-17 20:23 | RAD ---
HISTORY: Left knee pain COMPARISONS: June 02, 2017 VIEWS: 4, Frontal, lateral, axial, and oblique views of the left knee FINDINGS: BONE DENSITY: There is diffuse osteopenia. BONES: There is no displaced fracture. JOINTS: There is advanced tricompartmental osteoarthritis. There is a small suprapatellar joint effusion. There is no lipohemarthrosis. ALIGNMENT: There is no dislocation. SOFT TISSUES: Unremarkable. OTHER FINDINGS: None. IMPRESSION: 1. ADVANCED OSTEOARTHRITIS. 2. SMALL JOINT EFFUSION. 3. NO ACUTE OSSEOUS INJURY. IF SYMPTOMS PERSIST, RECOMMEND REPEAT IMAGING
[2017-10-17] MEDS ORDERED: Ketorolac INJ* 30 MG/ML 1 ML VIAL IV ONE (21:24)
[2017-10-17 22:10] VITALS: BP 144/64
--- NOTE | 2017-10-18 10:48 | ED ---
Italo Santana Jason, scribed for Nilson Wren MD on 10/17/17 at 1957 . Lower Extremity - HPI Summary HPI Summary: This patient is a 87 year old F presenting to [facility] with a chief complaint of left knee pain since 1000 today. The patient states that she cant walk because her left knee hurts, which worsens with pressure due to standing and walking. The patient rates the pain 0/10 in severity. Symptoms aggravated by standing and walking. Symptoms alleviated by lying down. - History of Current Complaint Stated Complaint: DIFF WALKING Time Seen by Provider: 10/17/17 17:49 Hx Obtained From: Patient Onset of Pain: Hours - since 1000 today Onset/Duration: Still Present Pain Intensity: 0 Pain Scale Used: 0-10 Numeric Timing: Constant Location: Other - left knee Associated Signs And Symptoms: Positive: Knee Pain - left Aggravating Factor(s): Standing, Ambulation Alleviating Factor(s): Rest - laying down - Allergies/Home Medications Allergies/Adverse Reactions: Allergies Allergy/AdvReac Type Severity Reaction Status Date / Time MS Loratadine [From Claritin] Allergy Unknown Unknown Verified 04/22/16 12:22 Reaction Details MS Sulfa Drugs [Sulfa Drugs] Allergy Unknown Unknown Verified 04/22/16 12:22 Reaction Details Home Medications: Home Medications Albuterol 2.5MG/3ML (0.083%)* [Ventolin 2.5 MG/3 ML NEB.RADHA*] 2.5 mg INH BID 06/26 [History Confirmed 10/17/17] Ergocalciferol (Vitamin D2) [Vitamin D2] 50,000 unit PO WEEKLY 10/17/17 [ History Confirmed 10/17/17] Magnesium Oxide TAB* [MagOx 400 TAB*] 400 mg PO DAILY 10/17/17 [History Confirmed 10/17/17] Metoprolol Succinate [Metoprolol Succinate ER] 25 mg PO BID 10/17/17 [History Confirmed 10/17/17] PMH/Surg Hx/FS Hx/Imm Hx Previously Healthy: No Endocrine/Hematology History: Reports: Hx Thyroid Disease, Other Endocrine/ Hematological Disorders - Vitamin B12 Deficiency Denies: Hx Diabetes Cardiovascular History: Reports: Hx Hypercholesterolemia, Hx Hypertension, Other Cardiovascular Problems/Disorders - Heart Disease Denies: Hx Pacemaker/ICD Respiratory History: Reports: Hx Asthma, Hx Sleep Apnea - current BiPAP user History: Denies: Hx Renal Disease Musculoskeletal History: Reports: Hx Osteoporosis Sensory History: Reports: Hx Contacts or Glasses - at home, Hx Hearing Aid - DOESN'T WEAR ALL THE TIME Opthamlomology History: Reports: Hx Contacts or Glasses - at home Neurological History: Reports: Other Neuro Impairments/Disorders - Alzheimers Psychiatric History: Denies: Hx Panic Disorder - Cancer History Cancer Type, 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 Rt MASTECTOMY - 1991. TOTAL HYSTERECTOMY - 2007 - Immunization History Date of Influenza Vaccine: 05/25 Infectious Disease History: No Infectious Disease History: Denies: Traveled Outside the [place] in Last 30 Days - Family History Known Family History: Positive: Hypertension Family History: FHx of Breast CA (Aunt) - Social History Alcohol Use: Rare Substance Use Type: Reports: None Smoking Status (MU): Former Smoker Amount Used/How Often: 1 ppd Length of Time of Smoking/Using Tobacco: 10 years Have You Smoked in the Last Year: No Review of Systems Negative: Fever Positive: Other - left knee pain All Other Systems Reviewed And Are Negative: Yes Physical Exam - Summary Physical Exam Summary: Appearance: The patient is well-nourished in no acute distress and in no acute pain. Skin: The skin is warm and dry and skin color reflects adequate perfusion. HEENT: ~The head is normocephalic and atraumatic. The pupils are equal and reactive. The conjunctivae are clear and without drainage. ~Nares are patent and without drainage. Mouth reveals moist mucous membranes and the throat is without erythema and exudate. The external ears are intact. The ear canals are patent and without drainage. The tympanic membranes are intact. Neck: the neck is supple with full range of motion and non-tender. There are no carotid bruits. ~There is no neck vein distension. Respiratory: Chest is non-tender. ~Lungs are clear to auscultation and breath sounds are symmetrical and equal. Cardiovascular: Heart is regular rate and rhythm. ~There is no murmur or rub auscultated. ~~There is no peripheral edema and pulses are symmetrical and equal. Abdomen: The abdomen is soft and non-tender. ~There are normal bowel sounds heard in all four quadrants and there is no organomegaly palpated. Musculoskeletal: There is no back tenderness noted. ~Extremities are non-tender with full range of motion. ~There is good capillary refill. There is no peripheral edema or calf tenderness elicited. Left knee is non-tender. Neurological: Patient is alert and oriented to person, place and time. ~The patient has symmetrical motor strength in all four extremities. ~Cranial nerves are grossly intact. Deep tendon reflexes are symmetrical and equal in all four extremities. Psychiatric: The patient has an appropriate affect and does not exhibit any anxiety or depression. Triage Information Reviewed: Yes Vital Signs On Initial Exam: Initial Vitals Temp Pulse Resp BP Pulse Ox 97.7 F 55 15 133/58 97 10/17/17 18:21 10/17/17 18:21 10/17/17 18:21 10/17/17 18:21 10/17/17 18:21 Vital Signs Reviewed: Yes Diagnostics - Vital Signs Vital Signs Temp Pulse Resp BP Pulse Ox 10/17/17 19:09 59 16 135/68 95 10/17/17 18:21 97.7 F 55 15 133/58 97 - Laboratory Lab Results: Lab Results 10/17/17 10/17/17 10/17/17 Range/Units 19:55 19:55 19:55 WBC 5.3 (3.5-10.8) 10^3/ul RBC 4.53 (4.0-5.4) 10^6/ul Hgb 13.0 (12.0-16.0) g/dl Hct 39 (35-47) % MCV 85 (80-97) fL MCH 29 (27-31) pg MCHC 34 (31-36) g/dl RDW 15 (10.5-15) % Plt Count 243 (150-450) 10^3/ul MPV 7 L (7.4-10.4) um3 Neut % (Auto) 66.7 (38-83) % Lymph % (Auto) 19.7 L (25-47) % Bay % (Auto) 11.4 H (0-7) % Eos % (Auto) 1.6 (0-6) % Baso % (Auto) 0.6 (0-2) % Absolute Neuts (auto) 3.5 (1.5-7.7) 10^3/ul Absolute Lymphs (auto) 1.0 (1.0-4.8) 10^3/ul Absolute Monos (auto) 0.6 (0-0.8) 10^3/ul Absolute Eos (auto) 0.1 (0-0.6) 10^3/ul Absolute Basos (auto) 0 (0-0.2) 10^3/ul Absolute Nucleated RBC 0 10^3/ul Nucleated RBC % 0.2 Sodium 126 L (133-145) mmol/L Potassium 4.5 (3.5-5.0) mmol/L Chloride 96 L (101-111) mmol/L Carbon Dioxide 24 (22-32) mmol/L Anion Gap 6 (2-11) mmol/L BUN 9 (6-24) mg/dL Creatinine 0.80 (0.51-0.95) mg/dL Est GFR ( Amer) 86.9 (>60) Est GFR (Non-Af Amer) 67.5 (>60) BUN/Creatinine Ratio 11.3 (8-20) Glucose 93 (70-100) mg/dL Lactic Acid 0.9 (0.5-2.0) mmol/L Calcium 8.8 (8.6-10.3) mg/dL Magnesium 1.5 L (1.9-2.7) mg/dL Total Bilirubin 0.80 (0.2-1.0) mg/dL AST 12 L (13-39) U/L ALT 8 (7-52) U/L Alkaline Phosphatase 57 (34-104) U/L Troponin I 0.04 H* (<0.04) ng/mL Total Protein 5.2 L (6.4-8.9) g/dL Albumin 3.3 (3.2-5.2) g/dL Globulin 1.9 L (2-4) g/dL Albumin/Globulin Ratio 1.7 (1-3) TSH 1.50 (0.34-5.60) mcIU/mL Result Diagrams: 10/17/17 19:55 10/17/17 19:55 Lab Statement: Any lab studies that have been ordered have been reviewed, and results considered in the medical decision making process. - Radiology knee x-ray Radiology Interpretation Completed By: Radiologist - 1. ADVANCED OSTEOARTHRITIS. 2. SMALL JOINT EFFUSION. 3. NO ACUTE OSSEOUS INJURY. IF SYMPTOMS PERSIST, RECOMMEND REPEAT IMAGING. ED physician has reviewed this radiology report. Lower Extremity Course/Dx - Course Course Of Treatment: Ms. Reed presented from the [place] with a C/O that she is having difficulty walking and C/O left knee pain. She was evaluated with labs which were fine and an x-ray which showed a slight effusion with DJD. She was able to ambulate around the department without C/O. I doubt that this represents a septic joint and recommended symptomatic treatment and close F/U. Her son arrived and had some concerns about her gaining water weight after having been started on metoprolol for asymptomatic runs of SVT. I referred him back to Dr. Salinas. - Diagnoses Provider Diagnoses: Inflammation of joint of left knee Discharge - Discharge Plan Condition: Stable Disposition: HOME Patient Education Materials: Knee Pain (ED) Referrals: Wisam Kimball NP [Primary Care Provider] - 3 Days Additional Instructions: RETURN TO THE EMERGENCY DEPARTMENT FOR CHANGING OR WORSENING SYMPTOMS. The documentation as recorded by the Italo alvarez Jason accurately reflects the service I personally performed and the decisions made by me, Nilson Wren MD.
== END 2017-10-17 22:09 | disposition home or self-care (01) ==
LOC: ED 17:47
DX: M25.562 Pain in left knee (principal); M17.12 Unilateral primary osteoarthritis, left knee; I10 Essential (primary) hypertension; E78.5 Hyperlipidemia, unspecified; Z87.891 Personal history of nicotine dependence; Z88.2 Allergy status to sulfonamides; Z88.8 Allergy status to other drugs, medicaments and biological substances
CPT/HCPCS: 36415; 80053; 83605; 83735; 84443; 84484; 85025; 99284

== ENCOUNTER 2017-10-20 12:53 | Inpatient (IN) | payer MEDICARE ==
--- OUTSIDE RECORDS SUMMARY | 2017-10-20 13:22 | XMS REPORT ---
:1930 External Reference #:[id number] Author Organization [facility] Address [address] [address] Phone [phone] Care Team Providers Name Role Phone Brianna Suarez MD Primary Care Physician Unavailable Payers Type Date Identification Numbers Payment Provider Subscriber Medicare Primary Policy Number: [id number] Medicare Kati Reed PayID: [id number] [address] [place] [address] [facility] Part B Policy Number: [id number] [facility] Kati Reed PayID: [id number] [address] [place] [address] Advance Directives Type Date Description Status Comment Other Directive 04/27/2012 Health Care Proxy Current and Verified Problems Date Description Provider Status Onset: 07/01/2011 Coronary arteriosclerosis Brenda Kasper M.D. Onset: 07/01/2011 Benign essential hypertension Brenda Kasper M.D. Onset: 07/01/2011 Restrictive cardiomyopathy secondary Brenda Kasper M.D. Onset: 07/01/2011 Electrocardiogram abnormal Brenda [...] Description Comments Marital Status Single Lives With [place] Occupation Retired Cigarette Use Former Cigarette Smoker [...] Form Strength Qnty SIG Indications Ordering Provider Magnesium Oxide 10/13 Active Capsules 400mg 60cap 1 by mouth Mimi S. -MG Supplement s every day Eb, N.P. Metoprolol 10/07 Active Tablets ER 25mg 60tab 08/10 tab by I49.3 Mimi S. Succinate ER /2017 24HR s mouth twice Foster, a day N.P. Albuterol 09/21 Active Nebulizer (2.5mg/3M 75ml inhale 3 J44.1 Wisam Sulfate /2017 L) 0.083% milliliters ALONZO Kimball 2 times a day by peter.pt. last office visit was 07/14/17 Imodium A-D 07/06 Active Tablets 2mg 30tab 1 tablet Wisam s twice daily ALONZO Kimball as needed for loose stools. pt can id need Namenda 06/16 Active Tablets 10mg 60tab take one Reina s tablet by letty Franklin twice M.D. a day Acetaminophen 06/02 Active Tablets 500mg 90tab 2 tabs every M25.519 Wisam s 8 hours as ALONZO Kimball needed for pain. Cpap 06/02 Active Device 1unit for use G47.30 Wisam s while ALONZO Kimball sleeping Cpap Mask And 06/02 Active Device 1unit use with G47.30 Wisam Supplies s cpap nightly ALONZO Kimball Atorvastatin Active Tablets 20mg 90tab 1 po qd Unknown Calcium / s Ramipril Active Capsules 10mg 90cap 1 po hs Unknown / s Potassium Active Tablets ER 20Meq 1 po qd Unknown Chloride ER / Donepezil HCL Active Tablets 10mg 30tab 1 by mouth Reina Dispers s every day Dorie Franklin Famotidine Active Tablets 20mg 60tab 1 po bid Unknown / s Vitamin B-12 Active Lozenge 1 by mouth Unknown Folate every day Alendronate Active Tablets 70mg 1 by mouth Unknown Sodium / weekly Preparation H Active Gel 0.25-50% apply / externally tid Probiotic And Active Capsules 1 by mouth Unknown Acidophilus / every day Oxybutynin Active Tablets ER 15mg 1 by mouth Unknown Chloride ER / 24HR every day Vitamin D2 Active Tablets 94888Fnbd 1 by mouth Unknown / every week Ventolin HFA Active Aerosol 108(90Bas 2 puffs by Unknown / e) mouth four mcg/Act times a day as needed Cholestyramine Active Powder in the Unknown / morning Fluoxetine HCL Active Capsules 20mg 1 [...] Hx Tablets 20mg 30tab 1 po qd s Ordering - Provider 09/29 Hydrocodone/Brent 02/25 [...] Tablets 10mg 30tab 1 tablet po 401.1 Stevano s c, - Radomir, 10/31 dialy M.D. Ketoconazole 11/12 Hx Cream 2% 30gm 1 401.1 application c, - daily Radomir, 01/09 M.D. Nasonex 05/30 Hx Suspension 50mcg/Act 1unit 2 sprays per 784.91 Thananart s nostril qd x , Alissa, - 4-5 days, M.D. 01/09 then 1 spray per nostril qd x 4-5 days, then 1 spray per nostril qod x 4-5 days Ciprofloxacin 03/04 Hx Tablets 250mg 10tab 1 bid x 5 Thananart s Alissa arboleda - M.D. 05/28 Levaquin 11/28 Hx Tablets 500mg 7tabs 1 po qd x 7 486 Joshua /2008 days Gladys Lezama M.D.,FACP 01/02 Vitamin B12 10/24 Hx Tablets ER 1000mcg 30tab po qday 281.9 Ralph /2008 s Juliana Graham M.D. 10/31 Keflex 08/10 Hx Capsules 500mg 40cap 1 tab po qid 680.2 Thanrt s x 10 days Alissa - M.D. 11/28 Triamcinolone 07/25 Hx Ointment 0.1% 30G apply to 782.1 Stevanovi Acetonide affected c, - area tid x 2 Radomir, 01/09 wks M.D. Mupirocin 07/25 Hx Ointment 2% 22G apply to 782.1 Thananart /2007 affected , Alissa, - area tid x M.DAlonso 11/[address] 20mg 90cap 1 po qd Stevanovi /0000 s c, - Radomir, 12/19 M.D. Enalapril Hx Tablets 10mg 30tab 1 po qd Stevanovi Maleate /0000 s c, - Radomir, 12/12 M.D. Detrol LA Hx Caps ER 4mg 90cap 1 po qd Stevanovi /0000 24HR s c, - Radomir, 02/02 M.D. /[address] 40mg 1 po qd Unknown / - 01/09 Metamucil /00 Hx bid Stevanovi /0000 c, - Radomir, 09/29 M.D. /2013 Aspirin 00 Hx Tablets 81mg 1 po qd Stevanovi /0000 c, - Radomir, 08/15 M.D. /2015 Toprol XL 00 Hx Tablets ER 100mg 1 po qd at Stevanovi /0000 24HR 1700 c, - Radomir, 10/23 M.D. /2013 Vasotec 00/00 Hx Tablets 10mg 1 po qd Stevanovi /0000 c, - Radomir, 01/27 M.D. /2009 Lasix 00/00 Hx Tablets 20mg 90tab 2 tablets po Qutaybeh /0000 s qd S. - ydah 12/20 , M.D. /[address] 20mg 2 tablets Other /0000 daily Ordering - Provider 12/20 Vitamin C Hx 500mg 1 po qd Unknown / - 08/15 Crestor Hx Tablets 20mg 30tab 1 po qd 401.1 Unknown / s - 02/02 Donepezil HCL Hx Tablets 10mg 1 po qd Unknown / - 12/20 Calcium /Vit D 00/00 Hx Tablets 1 po qd Unknown / - 02/02 Sanctura XR Hx Caps ER 60mg 90cap 1 po qd Unknown / 24HR s - 10/23 Boniva Hx Tablets 150mg 1tabs take 1 Unknown /0000 tablet once - a month as 02/02 Alendronate Hx Tablets 70mg 12tab 1 po weekly Unknown Sodium / s - 11/12 Calcium 600 Hx Tablets 600mg 1 po qd Unknown / - 08/15 Magnesium 00/ Hx Tablets 200mg 1 po qd Unknown / - 09/29 Torsemide 00 Hx Tablets 20mg 90tab 1 po qd Unknown / s - 07/21 Aricept 00 Hx Tablets 10mg 30tab 1 po qd Unknown / s - 09/29 Namenda 00 Hx Tablets 5mg 180ta 1 by mouth Unknown / bs every day - 09/29 B 12 Injection Hx Capsules monthy Unknown / - 09/29 Albuterol Hx Nebulizer (2.5mg/3M 100un 1 vial via Unknown Sulfate /0000 L) 0.083% its nebulizer 4 - times daily 06/30 as Cyanocobalamin Hx Solution 1000mcg/M 25ml 1.0 cc im q Unknown /0000 L month - 11/12 Metoprolol Hx Tablets ER 50mg 1 po qd Unknown Succinate ER /0000 24HR - 02/25 Fish Oil 00 Hx 1000mg 1 po qd Unknown /0000 - 08/15 Trospium 00 Hx Caps ER 60mg 1 po qd Unknown Chloride ER /0000 24HR - 06/30 Spiriva Hx Capsules 18mcg 90cap prn Unknown Handihaler /0000 s - 06/30 Namenda 00 Hx Tablets 5mg 180ta 1 by mouth Unknown /0000 bs daily - 01/13 Sertraline HCL Hx Tablets 100mg 1 by mouth Unknown /0000 every day - 11/08 Fluticasone Hx Suspension 50mcg/Act 2 sprays Unknown Propionate /0000 each nostril - qd prn 07/[address] 20mg 1 by mouth Unknown /0000 every day - 01/18 Magnesium Hx Tablets 250mg 1 by mouth Unknown [...] for constipation x 30 days Memantine HCL Hx Tablets 5mg 120ta take 1 by [...] Injection 08/14/ Administered Injection Thananart, 2008 Dorie Maxwell B-12 Injection 08/14/ Administered Injection Nurse 2008 Visit [facility] B-12 Injection 08/07/ Administered Injection Thananart, 2007 Dorie Maxwell B-12 Injection 08/07/ Administered Injection Nurse 2007 Visit [facility] B-12 Injection 08/07/ Administered Injection Thananart, 2007 Dorie Maxwell B-12 Injection 07/31/ Administered Injection Thananart, 2007 Dorie Maxwell B-12 Injection 07/31/ Administered Injection Nurse 2007 Visit [facility] Immunizations CPT Code Status Date Vaccine Lot # [id number] Given 05/30/2009 Influenza Virus 3Yrs & Over [id number] Given 05/17/2008 Influenza Virus 3Yrs & Over [id number] Given 05/17/2008 Influenza Virus 3Yrs & Over [id number] Vital Signs Date Vital Result Comment 10/20/2017 Height 59 inches 4'11" Weight 154.25 lb Heart Rate 72 /min BP Systolic 158 mmHg R/Arm Reg cuff (not wall unit) BP Diastolic 88 mmHg R/Arm Reg cuff (not wall unit) O2 % BldC Oximetry 98 % BMI (Body Mass Index) 31.2 kg/m2 Ejection Fraction 45-50% Echocardiogram 01/21/2017 10/07/2017 Height 59 inches 4'11" Weight 152.00 [...] Test Date Test Result H/L Range Note CBC Auto Diff 10/17/2017 White Blood Count 5.3 10^3/uL 3.5-10.8 Red Blood Count 4.53 10^6/uL 4.0-5.4 Hemoglobin 13.0 g/dL 12.0-16.0 Hematocrit 39 % 35-47 Mean Corpuscular Volume 85 fL 80-97 Mean Corpuscular Hemoglobin 29 pg 27-31 Mean Corpuscular HGB Conc 34 g/dL 31-36 Red Cell Distribution Width 15 % 10.5-15 Platelet Count 243 10^3/uL 150-450 Mean Platelet Volume 7 um3 Low 7.4-10.4 Abs Neutrophils 3.5 10^3/uL 1.5-7.7 Abs Lymphocytes 1.0 10^3/uL 1.0-4.8 Abs Monocytes 0.6 10^3/uL 0-0.8 Abs Eosinophils 0.1 10^3/uL 0-0.6 Abs Basophils 0 10^3/uL 0-0.2 Abs Nucleated RBC 0 10^3/uL Granulocyte % 66.7 % 38-83 Lymphocyte % 19.7 % Low 25-47 Monocyte % 11.4 % High 0-7 Eosinophil % 1.6 % 0-6 Basophil % 0.6 % 0-2 Nucleated Red Blood Cells % 0.2 Laboratory test finding 10/17/2017 Lactic Acid 0.9 mmol/L 0.5-2.0 1 Comp Metabolic Panel 10/17/2017 Sodium 126 mmol/L Low 133-145 Potassium 4.5 mmol/L 3.5-5.0 Chloride 96 mmol/L Low 101-111 Co2 Carbon Dioxide 24 mmol/L 22-32 Anion Gap 6 mmol/L 2-11 Glucose 93 mg/dL 70-100 Blood Urea Nitrogen 9 mg/dL 6-24 Creatinine 0.80 mg/dL 0.51-0.95 BUN/Creatinine Ratio 11.3 8-20 Calcium 8.8 mg/dL 8.6-10.3 Total Protein 5.2 g/dL Low 6.4-8.9 Albumin 3.3 g/dL 3.2-5.2 Globulin 1.9 g/dL Low 2-4 Albumin/Globulin Ratio 1.7 1-3 Total Bilirubin 0.80 mg/dL 0.2-1.0 Alkaline Phosphatase 57 U/L 34-104 Alt 8 U/L 7-52 Ast 12 U/L Low 13-39 Egfr Non- 67.5 >60 Egfr 86.9 >60 2 Laboratory test finding 10/17/2017 Magnesium 1.5 mg/dL Low 1.9-2.7 Troponin-I (TnI) 0.04 ng/mL High <0.04 3 TSH (Thyroid Stim Horm) 1.50 mcIU/mL 0.34-5.60 Basic Metabolic Panel 10/12/2017 Sodium 133 mmol/L 133-145 4 Potassium 4.1 mmol/L 3.5-5.0 4 Chloride 100 mmol/L Low 101-111 4 Co2 Carbon Dioxide 27 mmol/L 22-32 4 Anion Gap 6 mmol/L 2-11 4 Glucose 92 mg/dL 70-100 4 Blood Urea Nitrogen 9 mg/dL 6-24 4 Creatinine 0.69 mg/dL 0.51-0.95 4 BUN/Creatinine Ratio 13.0 8-20 4 Calcium 9.1 mg/dL 8.6-10.3 4 Egfr Non- 80.1 >60 4 Egfr 103.0 >60 4, 5 Laboratory test finding 10/12/2017 Magnesium 1.7 mg/dL Low 1.9-2.7 4, 6 Lipid Profile (Trig/Chol/HDL) 07/07/2017 Triglycerides 69 mg/dL 7 Cholesterol 166 mg/dL 8 HDL Cholesterol 67.9 mg/dL 9 LDL Cholesterol 84 mg/dL 10 Comp Metabolic Panel 07/07/2017 Sodium 134 mmol/L [...] Egfr Non- 65.6 >60 Egfr 84.4 >60 11 CBC With Electronic Diff 04/15/2010 White Blood [...] Abs Basophils 0 0-0.2 Laboratory test finding 04/15/2010 Magnesium 1.6 mg/dL Low 1.7-2.6 Basic Metabolic Panel 04/15/2010 Sodium 139 mmol/L 135-145 Potassium 4.0 mmol/L 3.5-5.0 Chloride 101 mmol/L 101-111 Co2 (Carbon Dioxide) 30.0 mmol/L 22-32 Anion Gap 8.0 mmol/L 2-11 12 Glucose 94 mg/dL 70-100 13 BUN 15 mg/dL 6-24 Creatinine 1.10 mg/dL 0.50-1.40 One Over Creatinine 0.90 BUN/Creatinine Ratio 13.6 8-20 Calcium 9.5 mg/dL 8.1-9.9 eGFR Non- 50.5 > 60 eGFR 61.2 > 60 14 Comp Metabolic Panel 12/29/2009 Sodium 139 mmol/L 135-145 Potassium 3.6 mmol/L 3.5-5.0 Chloride 105 mmol/L 101-111 Co2 (Carbon Dioxide) 27.0 mmol/L 22-32 Anion Gap 7.0 mmol/L 2-11 15 Glucose 119 mg/dL High 70-100 16 BUN 13 mg/dL 6-24 Creatinine 0.82 mg/dL 0.50-1.40 One Over Creatinine 1.20 BUN/Creatinine Ratio 15.9 8-20 Calcium 9.3 mg/dL 8.1-9.9 17 Total Protein 6.6 GM/DL 6.2-8.1 Albumin 3.8 GM/DL 3.2-5.2 Globulin 2.8 GM/DL 2-4 Albumin/Globulin Ratio 1.4 1-3 Bilirubin Total 0.7 mg/dL 0.4-1.5 18 Alkaline Phosphatase 86 U/L 30-110 Alt (SGPT) 14 U/L 14-54 Ast (Sgot) 23 U/L 12-42 eGFR Non- 71.1 > 60 eGFR 86.0 > 60 19 Laboratory test finding 12/29/2009 Magnesium 1.4 mg/dL Low 1.7-2.6 Troponin-I (TnI) 0.08 NG/ML High 20 CBC With Electronic Diff 12/29/2009 White Blood Count 6.3 CUMM 4.8-10.8 21 Red Cell Count 4.39 CUMM 4.2-5.4 21 Hemoglobin 12.6 g/dL 12.0-16.0 21 Hematocrit 37 % 35-47 21 Mean Corpuscular Volume 84 um3 79-97 21 Mean Corpuscular Hemoglob 29 pg 27-31 21 Mean Corpuscular HGB Cone 34 g/dL 32-36 21 Redcell Distribution WDTH 15 % 10.5-15 21 Platelet Count 293 CUMM 150-450 21 Mean Platelet Volume 7.5 um3 7.4-10.4 21 Gran % 82.0 % 38-83 21 Lymph % 14.1 % Low 25-47 21 Mononuclear % 3.1 % 1-9 21 Eosinophil % 0.5 % 0-6 21 Basophil % 0.3 % 0-2 21 Abs Lymphs 0.9 Low 1.0-4.8 21 Abs Mononuclear 0.2 0-0.8 21 Absolute Neutrophil Count 5.1 1.5-7.7 21 Abs Eosinophils 0 0-0.6 21 Abs Basophils 0 0-0.2 21, 22 Protime 12/29/2009 Inr 1.08 High 0.97-1.03 23 Protime 12.8 SEC High 11.5-12.2 24 Laboratory test finding 12/29/2009 PTT (Aptt) 27.1 25.15-38.53 25 BNP Evaluatr 788.0 pg/mL High 0-100 Urinalysis W/Microscopic 12/29/2009 Ua Color YELLOW Yellow Appearance-Urine CLEAR Clear Specific Beatty-Ur 1.008 Low 1.010-1.030 Esterase-Urine NEGATIVE Negative Nitrite NEGATIVE Negative Vydfsnkjyjyw-[id number] NEGATIVE Negative Protein-Urine NEGATIVE Negative PH-Urine 6.0 5-9 Blood-Urine TRACE Negative Ketones-Urine NEGATIVE Negative Bilirubin-Ur NEGATIVE Negative Glucose-Urine NEGATIVE Negative WBC-Urine 0-2 0-5 RBC-Urine 3-5 0-2 Epith Cells-Ur RARE None Urine Culture & 11/14/2009 Urine Culture Sensitivi NF1 26 Sensitivi Urinalysis W/Microscopic 11/14/2009 Ua Color YELLOW Yellow Appearance-Urine CLEAR Clear Specific Beatty-Ur 1.020 1.010-1.030 Esterase-Urine 1+ Negative Nitrite NEGATIVE Negative Xntowlvzxmlh-Rj-YYG NEGATIVE Negative Protein-Urine NEGATIVE Negative PH-Urine 6.0 5-9 Blood-Urine TRACE Negative Ketones-Urine NEGATIVE Negative Bilirubin-Ur NEGATIVE Negative Glucose-Urine NEGATIVE Negative WBC-Urine 0-2 0-5 RBC-Urine 0-2 0-2 Mucus Urine SMALL None Laboratory test finding 11/14/2009 TSH 1.30 MIU/ML 0.34-5.60 Lipid Profile (Trig/Chol/HDL) 11/14/2009 Triglyceride 146 mg/dL 40-200 Cholesterol 258 mg/dL High Less Than 200 27 High Density Lipoprotein 44 mg/dL 40-60 28 Cholesterol/HDL Ratio 5.86 AVERAGE High 1-4.44 Low Density Lipoprotein 185 mg/dL High Less Than 100 29 Comp Metabolic Panel 11/14/2009 Sodium 137 mmol/L 135-145 Potassium 4.0 mmol/L 3.5-5.0 Chloride 104 mmol/L 101-111 Co2 (Carbon Dioxide) 28.0 mmol/L 22-32 Anion Gap 5.0 mmol/L 2-11 30 Glucose 111 mg/dL High 70-100 31 BUN 11 mg/dL 6-24 Creatinine 1.00 mg/dL 0.50-1.40 One Over Creatinine 1.00 BUN/Creatinine Ratio 11.0 8-20 Calcium 9.1 mg/dL 8.1-9.9 32 Total Protein 5.8 GM/DL Low 6.2-8.1 Albumin 3.6 GM/DL 3.2-5.2 Globulin 2.2 GM/DL 2-4 Albumin/Globulin Ratio 1.6 1-3 Bilirubin Total 0.6 mg/dL 0.4-1.5 33 Alkaline Phosphatase 87 U/L 30-110 Alt (SGPT) 13 U/L Low 14-54 Ast (Sgot) 19 U/L 12-42 eGFR Non- 56.6 > 60 eGFR 68.4 > 60 34 CBC With Electronic Diff 11/14/2009 White Blood [...] Eosinophils 0.1 0-0.6 Abs Basophils 0 0-0.2 CBC With Manual Diff 08/26/2009 White Blood [...] mmol/L 22-32 Anion Gap 6.0 mmol/L 2-11 35 Glucose 107 mg/dL High 70-100 36 BUN 11 mg/dL 6-24 Creatinine 1.00 mg/dL 0.50-1.40 One Over Creatinine 1.00 BUN/Creatinine Ratio 11.0 8-20 Calcium 10.0 mg/dL High 8.1-9.9 37 Total Protein 6.1 GM/DL Low 6.2-8.1 Albumin 3.9 GM/DL 3.2-5.2 Globulin 2.2 GM/DL 2-4 Albumin/Globulin Ratio 1.8 1-3 Bilirubin Total 0.7 mg/dL 0.4-1.5 38 Alkaline Phosphatase 87 U/L 30-110 Alt (SGPT) 15 U/L 14-54 Ast (Sgot) 21 U/L 12-42 eGFR Non- 56.6 > 60 eGFR 68.4 > 60 39 Ursc-1 03/01/2009 Ampicillin >=8 Amikacin <=2 Ciprofloxacin <=0.25 Ceftriaxone <=1 Cefazolin >=64 Nitrofurantoin 128 Gentamicin <=1 Imipenem <=1 Levofloxacin <=0.12 Trimeth-Sulfa <=20 Ceftazidime <=1 Tigecycline <=0.5 Piperacillin/Tazobactam <=4 Laboratory test 03/01/2009 Urine Culture ENTEROBACTER AER <SEE 40 finding Sensitivi NOTE> Urinalysis 03/01/2009 Ua Color YELLOW W/Microscopic Stat Appearance-Urine CLEAR Specific Beatty-Ur 1.008 Low 1.010-1.030 Esterase-Urine 1+ Negative Nitrite NEGATIVE Negative Rghzuaccrqut-Nf-UTT NEGATIVE Negative Protein-Urine NEGATIVE Negative PH-Urine 6.0 5-9 Blood-Urine NEGATIVE Negative Ketones-Urine NEGATIVE Negative Bilirubin-Ur NEGATIVE Negative Glucose-Urine NEGATIVE Negative WBC-Urine 2-5 0-5 RBC-Urine 0-2 0-2 Epith Cells-Ur OCCASIONAL Bacteria-Urine 1+ CBC With Electronic Diff 09/26/2008 White Blood [...] Blood 08/21/2008 Stool For Blood NEGATIVE Negative Laboratory test finding 07/25/2008 Ferritin 26 NG/ML 11.0-307 Iron & Iron Binding Capacity 07/25/2008 Iron Total 51 g/dL 28-170 Unsaturated Iron Binding 316 g/dL Total Iron Binding Capacity 367 g/dL 250-450 % Iron Saturation 14 % Low 15-55 Vitamin B12 And Folate Serum 07/25/2008 Vitamin B12 168 pg/mL Low 180-914 Folic Acid 10.8 NG/ML 2-16 Reticolocyte Count 07/25/2008 Red Cell Count 4.24 CUMM 4.2-5.4 Hemoglobin 11.4 g/dL Low 12.0-16.0 Hematocrit 34 % Low 35-47 Reticulocyte Count 1.46 % 0.5-1.5 Corrected Retic 1.1 % 0.5-1.5 Retic Index 0.7 Mean Retic Volume 110.6 Immature Retic Fraction 0.46 RBC Retic Count 4.24 CUMM Low 4.6-6.2 Hematocrit For Retic Coun 34 % Low 35-47 Morph 05/17/2008 Anisocytosis 1+ Hypochromasia SLIGHT Basic Metabolic Panel 05/17/2008 Sodium 142 mmol/L 135-145 Potassium 4.1 mmol/L 3.5-5.0 Chloride 106 mmol/L 101-111 Co2 (Carbon Dioxide) 29.0 mmol/L 22-32 Anion Gap 7.0 mmol/L 2-11 41 Glucose 93 mg/dL 70-100 42 BUN 9 mg/dL 6-24 Creatinine 1.1 mg/dL 0.5-1.4 One Over Creatinine 0.90 BUN/Creatinine Ratio 8.2 8-20 Calcium 9.1 mg/dL 8.1-9.9 43 Laboratory test finding 05/17/2008 TSH 1.28 MIU/ML [...] Eosinophils 0 0-0.6 Abs Basophils 0 0-0.2 44 1 [place] Severe Sepsis and Septic Shock Management Bundle Measure requires all lactic acids initially measuring >2.0 mmol/L be repeated. 2 Because ethnic data is not always readily [...] 15-29 5 Kidney failure <15 (or dialysis) 3 Result TnIDx:0.04 Called to [id number] at: 20:29:41 by:[id number] Read back by: [id number] 5 Because ethnic data is not always [...] 5 Kidney failure <15 (or dialysis) 6 [id number] Desirable: <150 Borderline High: 150-199 High: 200-499 Very High: >500 8 Desirable: <200 Borderline High: 200-239 High: >239 9 Low: <40 Desirable: 40-60 High: >60 10 Desirable: <100 Near Optimal: 100-129 Borderline High: 130-159 High: 160-189 Very High: >189 11 Because ethnic data is not always readily [...] 15-29 5 Kidney failure <15 (or dialysis) 12 Anion gap measurement may be of limited value in the presence of any alkalosis, especially in a combined acid base disorder. . 13 Note change in reference range as of 03/29/08. The change was based on recommendations from the [place] [employer]. 14 Because ethnic data is not always readily [...] 15-29 5 Kidney failure <15 (or dialysis) 15 Anion gap measurement may be of limited value in the presence of any alkalosis, especially in a combined acid base disorder. . 16 Note change in reference range as of 03/29/08. The change was based on recommendations from the [place] [employer]. 17 Please note change in reference range effective 08 . 18 A metabolite of Naproxen, O-desmethylnaproxen, has been shown to interfere with the Jendrassik-Manuel[place] method for measuring total bilirubin. Samples from patients who have taken Naproxen have shown spurious elevation in total bilirubin levels. 19 Because ethnic data is not always readily [...] 15-29 5 Kidney failure <15 (or dialysis) 20 RESULTS VERIFIED BY REPEAT ANALYSIS ON THE SAME SAMPLE. REPEATED RESULT IS:0.08@ VERBAL TO LUZ MARIA BY at 1058 on 12/29/09 that panic result(s) have been read back accurately. New Reference Range and Interpretation effective 05/12/2002 TnI (ng/ml) INTERPRETATION Less Than 0.06 ng/mL NOT SUPPORTIVE OF DIAGNOSIS OF NC 0.06 - 0.50 ng/ml INDETERMINATE: SUGGEST SERIAL STUDIES IF CLINICALLY INDICATED. Greater than 0.5 ng/mL CONSISTENT WITH DIAGNOSIS OF [place] . 21 COMMENTS: N 22 Lymphopenia % 23 Recommended INR for Patients on Oral Anticoagulants Prophylaxis 2.0 - 3.0 Treatment of thrombosis 2.0 - 3.0 Prevention of embolism 2.0 - 3.0 Prevention of embolism from prosthetic heart valves 2.5 - 3.5 24 DIAGNOSIS,TREATMENT,AND THERAPY MUST BE BASED ON THE INR VALUE ALONE. 25 PLEASE NOTE NEW REFERENCE RANGE EFFECTIVE 09. 26 SPECIMEN CONTAINS NORMAL URETHRAL OR PERINEAL RYAN AND DOES NOT SUGGEST URINARY TRACT INFECTION 27 CHOLESTEROL INTERPRETATION: Desirable: Less than 200 MG/DL Borderline-High Risk: 200-239 MG/DL High-Risk: 240 MG/DL and over 28 HDL INTERPRETATION: Undesirable: High Risk: Less than 40 MG/DL Desirable: Low Risk: Greater than 60 MG/DL 29 LDL INTERPRETATION: Low Risk Optimal Level: LDL Less than 100 MG/DL Near or Above Optimal: LDL 100-129 MG/DL Borderline High Risk: LDL 130-159 MG/DL High Risk: LDL 160-189 MG/DL Very High Risk: LDL Greater than 189 MG/DL 30 Anion gap measurement may be of limited value in the presence of any alkalosis, especially in a combined acid base disorder. . 31 Note change in reference range as of 03/29/08. The change was based on recommendations from the [place] [employer]. 32 Please note change in reference range effective 08 . 33 A metabolite of Naproxen, O-desmethylnaproxen, has been shown to interfere with the Jendrassik-Manuela method for measuring total bilirubin. Samples from patients who have taken Naproxen have shown spurious elevation in total bilirubin levels. 34 Because ethnic data is not always readily [...] 15-29 5 Kidney failure <15 (or dialysis) 35 Anion gap measurement may be of limited value in the presence of any alkalosis, especially in a combined acid base disorder. . 36 Note change in reference range as of 03/29/08. The change was based on recommendations from the [place] [employer]. 37 Please note change in reference range effective 08 . 38 A metabolite of Naproxen, O-desmethylnaproxen, has been shown to interfere with the Jendrassik-[place] method for measuring total bilirubin. Samples from patients who have taken Naproxen have shown spurious elevation in total bilirubin levels. 39 Because ethnic data is not always readily [...] 15-29 5 Kidney failure <15 (or dialysis) 40 ENTEROBACTER AEROGENES 41 Anion gap measurement may be of limited value in the presence of any alkalosis, especially in a combined acid base disorder. . 42 Note change in reference range as of 03/29/08. The change was based on recommendations from the [place] [employer]. 43 Please note change in reference range effective 08 . 44 Anemia 1+ Anisocytosis Procedures Date CPT Code Description Status 09/15/2017 16866 Holter Monitor Review (24 hr)dr rome & ro Completed only 09/13/2017 43929 ECG Monitor/Recording W/Visual Superimposition Scanning Completed 08/27/2017 22632 Sleep Study Unattended,HRT Rate,Oxygen Sat,Resp Completed Effort/Airflow 07/19/2017 44173 EKG Tracing & Interpretation Completed 06/29/201798243 Inject/Drain Joint/Bursa Major Completed 02/26/2017 22920 EKG Tracing & Interpretation Completed 01/21/2017 89807 ECHO Transthorasic Realtime 2D W Doppler & Color Completed Flow Hosp 08/25/2016 30365 Holter Monitor Review (24 hr)dr rome & ro Completed only 08/24/2016 41533 ECG Monitor/Recording W/Visual Superimposition Scanning Completed 01/20/2016 03275 EKG Tracing & Interpretation Completed 05/20/2015 60227 ECHO Transthoracic, Real-Time 2D With Doppler And Color Completed Flow 05/10/2015 29654 EKG Tracing & Interpretation Completed 05/08/201574909 Inject/Drain Joint/Bursa Major Completed 07/24/2014 81907 EKG Tracing & Interpretation Completed 10/20/2013 15088 EKG Tracing & Interpretation Completed 09/29/2013 28355 Xray Knee 3 Views Completed 09/29/201399594 Inject/Drain Joint/Bursa Major Completed 09/28/2013 95903 ECHO Transthoracic, Real-Time 2D With Doppler And Color Completed Flow 12/20/2012 57398 EKG Tracing & Interpretation Completed 11/29/2012 52398 ECHO Transthoracic, Real-Time 2D With Doppler And Color Completed Flow 05/11/2012 79528 EKG Tracing & Interpretation Completed 04/07/201271708 Inject/Drain Joint/Bursa Major Completed 02/12/201207323 Inject/Drain Joint/Bursa Major Completed 02/03/2012 94070 Holter Monitor Review (24 hr)dr rome & ro Completed only 02/03/2012 94749 Holter Monitor Review (24 hr)dr lightamp; ro Completed only 07/01/2011 00883 EKG Tracing & Interpretation Completed 11/11/2010 23245 Left Heart Cath. Incl S/I Coronaries, Angio S/I V Gram Completed If Done 11/11/2010 21269 Cath PLMT&NJX L Ventriculog Img S&I Completed 10/31/2010 19107 EKG Tracing & Interpretation Completed 10/07/2010 14148 ECHO Transthoracic, Real-Time 2D With Doppler And Color Completed Flow 04/03/2010 75955 ECHO Transthoracic, Real-Time 2D With Doppler And Color Completed Flow 01/27/2010 83960 EKG Tracing & Interpretation Completed 01/09/2010 21958 Noninvasive Ear Or Pulse Oximetry For Oxygen Saturation Completed 12/30/2009 54589 EKG, Interpretation Only Completed 12/29/2009 82422 ECHO Transthorasic Realtime 2D W Doppler & Color Completed Flow Hosp 12/10/2009 52053 Treadmill Interp/Report Only Completed 12/10/2009 63127 Stress Test Supervsn W/Out I/R Completed 11/14/2009 Bone Mineral Density Test Completed 11/12/2009 05682 EKG Tracing & Interpretation Completed 08/26/2009 Mammogram Completed 09/17/2008 50028 Admin Of Inj 2008 Only Completed 09/17/2008 44662 Admin Of Inj Completed 08/24/2008 Mammogram Completed 08/14/2008 24270 Admin Of Inj Completed 08/14/2008 66140 Admin Of Inj Completed 08/14/2008 70804 Admin Of Inj 2008 Only Completed 08/07/2008 96634 Admin Of Inj 2008 Only Completed 08/07/2008 40127 Admin Of Inj 2008 Only Completed 07/31/2008 91140 Admin Of Inj 2008 Only Completed 07/31/2008 77488 Admin Of Inj 2008 Only Completed 04/08/2007 32608 EKG, Interpretation Only Completed Encounters Type Date Location Provider CPT E/M Dx Office Visit 10/07/2017 10:00a [facility] Mimi Parson, N.P. 64093 I49.3 I49.1 I47.1 I25.10 I10 Office Visit 08/27/2017 11:00a [facility] [address] G47.33 [facility] E66.09 Z68.30 Office Visit 08/27/2017 3:30p [facility] Reina Franklin M.D. 35680 F03.90 [facility] Office Visit 07/19/2017 9:30a [facility] TRANG Johnson 36719 I10 I25.10 I49.3 Office Visit 07/14/2017 8:40a [facility] [place] [address] F41.9 [place] Office Visit 06/29/2017 10:00a [facility] [address] M19.011 C.M.A. M19.012 M17.12 Z96.651 Office Visit 06/02/2017 9:40a [facility] [place] [address] F41.9 [place] G47.30 M25.562 M25.511 M25.512 M25.561 Office Visit 05/28/2017 11:15a [facility] Reina Franklin M.D. 51796 G31.84 [facility] F41.9 Office Visit 02/26/2017 10:40a [facility] Lloydtaybjaye Salinas, 74189 I10 Dorie I25.10 I34.0 I49.3 Office Visit 01/21/2017 8:04a [facility], Renetta Goldman, 42333 R55 Hospitalists MAixa R74.8 R00.1 I10 Office Visit 01/20/2017 8:01a [facility], Renetta Goldman, 48432 R55 Hospitalists M.DAlonso R00.1 R74.8 I10 Office Visit 01/20/2017 1:00p [facility] Reina Franklin M.D. 15636 G31.84 [facility] Office Visit 11/09/2016 11:40a [facility] Lloydtaybjaye Pedro 25853 I1Jose Daniel Salinas M.D. I25.10 G31.84 I34.0 I49.3 Office Visit 07/23/2016 9:30a [facility] TRANG Johnson 46992 I10 I25.10 R29.6 R00.1 Office Visit 07/22/2016 10:00a [facility] Reina Franklin M.D. 11609 G31.84 [facility] R29.6 Office Visit 01/20/2016 11:20a [facility] Lloydtaybeh SAlonso Salinas 61976 R06.02 Dorie I25.10 I10 I34.0 R00.1 Office Visit 01/15/2016 2:15p [facility] Reina Franklin M.D. 83752 G31.84 Services Of [facility] R29.6 Office Visit 08/15/2015 11:00a [facility] Reina Franklin M.D. 77323 G31.84 [facility] R29.6 Office Visit 07/01/2015 9:00a [facility] Reina Franklin M.D. 10316 R41.89 Services [facility] R29.6 Office Visit 05/23/2015 10:30a [facility] TRANG Johnson 92366EWI R06.02 I42.9 I27.2 I25.10 I34.0 Office Visit 05/10/2015 10:00a [facility] Duke Salinas, 15461 I25.10 Dorie I34.0 I10 I42.9 R06.02 Office Visit 05/08/2015 3:00p [facility] Of Panfilo Schmidt M.D. 32745 M19.012 C.M.AAlonso M19.012 Office Visit 11/13/2014 11:00a [facility] TRANG Johnson 50822 414.01 424.0 401.1 397.0 272.0 Office Visit 07/24/2014 10:40a [facility] Duke Salinas, 29767 414.01 M.D. 424.0 401.1 397.0 272.0 Office Visit 10/27/2013 11:15a [facility] Of Anay Melchor M.D. 04917 715.96 C.M.A. Office Visit 10/24/2013 11:00a [facility] TRANG Johnson 39727 425.9 414.01 424.0 782.3 Office Visit 10/20/2013 10:40a [facility] Duke Salinas, 27717 401.1 M.DAlonso 425.9 414.01 424.0 397.0 272.0 782.3 Office Visit 09/29/2013 1:00p [facility] Anay Melchor M.D. 75814 715.96 C.M.A. Office Visit 12/20/2012 10:20a [facility] Duke Pedro 85161 401.1 Dorie Salinas 425.9 414.01 272.0 424.0 397.0 427.69 794.31 Office Visit 06/16/2012 2:15p [facility] Giovany Rodgers M.D. 76710 715.91 C.M.A. Office Visit 05/11/2012 11:30a [facility] Reina Avalos, 71946 401.1 N.P. 427.69 425.9 Office Visit 05/05/2012 1:30p [facility] Jabier Brown 59653 716.91 Of C.M.A. Stephani Maldonado Office Visit 04/07/2012 3:15p [facility] Giovany Rodgers M.D. 42216 715.91 Of C.M.A. Office Visit 02/26/2012 11:45a [facility] Giovany Rodgers M.D. 78447 716.81 Of C.M.A. Office Visit 02/12/2012 10:30a [facility] Giovany Rodgers M.D. 08368 715.91 Of C.M.A. 716.81 Office Visit 02/03/2012 2:00p [facility] Lloydtaybeh SAlonso Salinas, 27409 414.01 Dorie 401.1 794.31 401.9 427.69 Office Visit 01/22/2012 10:15a [facility] Of Giovany Rodgers M.D. 92032 840.4 C.M.A. Office Visit 07/01/2011 3:40p [facility] Qutaybeh S. 01191 414.01 Dorie Salinas 401.1 425.9 794.31 401.9 Office Visit 11/18/2010 4:15p [facility] Qutaybeh SAlonso Salinas, 14171 414.01 Dorie 401.1 425.9 272.0 Office Visit 11/11/2010 9:30a [facility] Qutaybeh SAlonso Salinas, 07158 794.31 MAixa 414.01 401.1 786.50 Office Visit 10/31/2010 10:00a [facility] Qutaybeh S. yd, 63966 425.9 M.D. 401.9 786.50 272.0 Office Visit 04/07/2010 3:20p [facility] Qutayb S. Maghaydah, 95971 401.9 M.D. 425.9 414.9 272.0 Office Visit 01/27/2010 1:40p [facility] [place], 80791 428.0 M.D. 414.9 401.9 425.9 272.0 Office Visit 01/09/2010 3:00p DO Not Use [facility], [place], [address] 428.0 [place] M.D. 414.9 401.9 425.9 786.09 780.93 272.0 530.81 799.02 496 Office Visit 01/01/2010 1:30a [facility],belen Graham M.D. 35712 428.0 Hospitalists 414.9 401.9 272.4 Office Visit 12/31/2009 1:30a [facility],belen Graham M.D. 10882 428.0 Hospitalists 414.9 401.9 272.4 Office Visit 12/30/2009 1:45a [facility],belen Graham M.D. 95829 428.0 Hospitalists 790.99 414.9 786.09 Office Visit 12/29/2009 2:30a [facility],belen Graham M.D. 77807 428.0 Hospitalists 790.99 786.09 Office Visit 12/12/2009 1:00p DO Not Use [facility] At [facility], [place], [address] 401.1 [place] M.D. 780.93 428.9 733.01 272.0 Office Visit 12/10/2009 8:00a [facility], 16698 794.31 M.D. 786.50 401.1 Office Visit 11/12/2009 10:00a DO Not Use [facility] [place], 51647 401.1 [place] M.D. 780.93 Office Visit 07/08/2009 2:40p DO Not Use [facility] At [place], 09708 786.2 [place] M.D. 401.1 Office Visit 05/30/2009 3:40p DO Not Use [facility] [place], [address]99 786.2 [place] M.D. 784.91 401.1 V04.81 Office Visit 02/25/2009 11:00a DO Not Use [facility] [place], 03001 788.41 [place] M.D. 401.1 Office Visit 01/02/2009 10:20a DO Not Use [facility], [place], 21660 786.2 [place] M.D. Office Visit 12/06/2008 1:20p DO Not Use [facility] [place], 14444 784.91 [place] M.D. 786.2 Office Visit 11/28/2008 9:40a DO Not Use [facility] At Joshua Riggins, 92179 486 [place] M.D.,FACP Office Visit 10/24/2008 11:00a DO Not Use [facility] [place], 78182 281.9 [place] M.D. 780.79 780.93 Office Visit 08/10/2008 11:30a DO Not Use [facility] 40648 680.2 [place] M.D. Office Visit 07/25/2008 11:00a DO Not Use [facility] 41716 782.1 [place] M.D. 281.9 Office Visit 07/18/2008 9:00a DO Not Use [facility] At [facility] [place], 70943 727.1 [place] M.D. 401.1 780.79 Office Visit 05/17/2008 9:00a DO Not Use [facility] At [facility] [place], 25444 401.1 [place] M.D. 530.81 719.46 715.16 780.79 V04.81 Plan of Care Future Appointment(s):11/30/2017 11:15 am - Malu Shanks DNP, RN, SEQUINS SLINGER-BC at [facility]10/28/2017 11:00 am - Ica ECHO Schedule at [facility]03/04/2018 3:15 pm - Reina Franklin M.D. 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 Please go to ER labs, CXR, LE ytvvdroT01.02 DysphasiaRecommendations:Go to ER for neurological evaluation.
[2017-10-20] MEDS ORDERED: NS 0.9% 1000 ML* 500 ML IV ONE (14:50)
--- NOTE | 2017-10-20 15:29 | RAD ---
INDICATION: Weakness COMPARISON: CT brain January 20, 2017 TECHNIQUE: Noncontrast axial source images were acquired from the skull base to the vertex. FINDINGS: Ventricles/sulci: There is cortical atrophy with compensatory dilatation of the CSF spaces. Brain parenchyma: There is periventricular and subcortical white matter change compatible with chronic ischemia. Intracranial hemorrhage:None. Extra-axial spaces: There are no abnormal extra axial fluid collections or evidence of extra-axial mass. Calvarium: There is no calvarial fracture or other calvarial abnormality. Scalp: There is no evidence of scalp or extracalvarial soft tissue abnormality. Paranasal sinuses/mastoid: The paranasal sinuses and mastoid air cells are clear. Other: None. IMPRESSION: CORTICAL ATROPHY WITH CHRONIC MICROVASCULAR ISCHEMIC CHANGES. NO ACUTE FINDINGS.
--- NOTE | 2017-10-20 15:40 | RAD ---
INDICATION: Weakness. COMPARISON: Comparison is made with a prior study from January 20, 2017. TECHNIQUE: A portable view of the chest was obtained. FINDINGS: The heart is within normal limits for this portable exam. The lungs are underinflated. There are small infiltrates at both lung bases. IMPRESSION: LOW LUNG VOLUMES, SMALL BIBASILAR INFILTRATES.
[2017-10-20 15:47] LABS: ABS Basophils 0 10^3/ul (0-0.2); ABS Eosinophils 0 10^3/ul (0-0.6); ABS Lymphocytes 0.8 10^3/ul (1.0-4.8); ABS Monocytes 0.6 10^3/ul (0-0.8); ABS Nucleated RBC 0 10^3/ul; Eosinophil % 0.5 % (0-6); Hematocrit 39 % (35-47); Hemoglobin 13.1 g/dl (12.0-16.0); Lymphocyte % 17.4 % (25-47); Mean Corpuscular HGB Conc 34 g/dl (31-36); Mean Corpuscular Hemoglobin 29 pg (27-31); Mean Corpuscular Volume 85 fL (80-97); Mean Platelet Volume 7 um3 (7.4-10.4); Nucleated Red Blood Cells % 0.1; Platelet Count 222 10^3/ul (150-450); Red Blood Count 4.55 10^6/ul (4.0-5.4); Red Cell Distribution Width 15 % (10.5-15); White Blood Count 4.5 10^3/ul (3.5-10.8)
[2017-10-20 16:00] LABS: EGFR Non-African American 66.6 (>60)
[2017-10-20] MEDS ORDERED: cefTRIAXone(*) 1 GM in NS 0.9% 50 ML* 50 ML IVPB ONE (17:19)
[2017-10-20 17:20] LABS: Urine Appearance Clear; Urine Blood 1+ (Negative); Urine Color Yellow; Urine Ketones Trace (Negative); Urine Protein Negative (Negative); Urine Specific Gravity 1.017 (1.010-1.030); Urine Urobilinogen Negative (Negative)
[2017-10-20] MEDS ORDERED: NS 0.9% 50 ML* 50 ML ONE (17:42)
[2017-10-20] MEDS ORDERED: cefTRIAXone 1000 MG SYRINGE IVPB ONCE IVPB ONE ×2 (18:00)
--- NOTE | 2017-10-20 21:30 | RAD ---
INDICATION: Joint effusion, inability to ambulate. COMPARISON: Comparison is made with a prior x-ray study of the left knee from October 17, 2017. TECHNIQUE: Axial, sagittal and coronal T1 and T2-weighted images of the left knee were obtained. FINDINGS: There is diffuse soft tissue swelling. There is a large joint effusion with synovitis. No fracture is seen. There is a Lawrence's cyst measuring 4.8 x 1.6 x 1.3 cm. There is medial extrusion of the medial meniscus. There is joint space narrowing in the medial compartment with complete loss of cartilage along the medial femoral condyle and subjacent tibial plateau consistent with severe osteoarthritic change. There is mild bone marrow edema in the medial femoral condyle and medial tibial plateau. The lateral meniscus appears intact. There is grade II signal abnormality throughout. There is moderate osteoarthritic change in the lateral compartment. The posterior cruciate ligament appears intact. There appears to be a chronic complete anterior cruciate ligament tear. The medial and lateral collateral ligaments appear intact. The extensor mechanism appears intact. There is moderate to severe osteoarthritic change in the patellofemoral compartment. IMPRESSION: 1. LARGE JOINT EFFUSION WITH SYNOVITIS. 2. THERE IS SEVERE OSTEOARTHRITIC CHANGE IN THE MEDIAL COMPARTMENT, MODERATE OSTEOARTHRITIC CHANGE IN THE LATERAL COMPARTMENT AND MODERATE TO SEVERE OSTEOARTHRITIC CHANGE IN THE PATELLOFEMORAL COMPARTMENT.
[2017-10-20] MEDS: Albuterol 2.5 MG/3 ML NEB.SOL* (0.083%) INH SCH (21:44)
[2017-10-20] MEDS ORDERED: Magnesium Sulfate 1 GM IV* 1 GM/100 ML BAG IV ONE (22:30)
[2017-10-20] MEDS: Heparin VIAL(*) 5000 UNITS/ML VIAL (FIVE THOUSAND) SUBCUT SCH (23:15)
[2017-10-20] MEDS: Atorvastatin* 20 MG TAB PO SCH (23:15)
[2017-10-20] MEDS: guaiFENesin ER TAB 600 MG PO SCH (23:15)
[2017-10-20] MEDS: Famotidine TAB* 20 MG PO SCH (23:16)
[2017-10-20] MEDS: Metoprolol Succinate XL TAB* 25 MG PO SCH (23:16)
[2017-10-20] MEDS: Memantine TAB* 5 MG PO SCH (23:18)
--- NOTE | 2017-10-20 23:19 | HP ---
ADMISSION HISTORY AND PHYSICAL: DATE OF ADMISSION: 10/20/17 REFERRING PHYSICIAN: Dr. Salinas's office. PRIMARY CARE PROVIDER: Dr. Miles. NEUROLOGIST: Dr. Franklin. ATTENDING PROVIDER: Vivek Hudson MD* (DICTATED BY TRISTIAN VOALLE NP) CHIEF COMPLAINT: Altered mental status and left knee pain and inability to ambulate. HISTORY OF PRESENT ILLNESS: This is a pleasant 87-year-old female who was in the emergency department 3 days ago with an inability to ambulate. She is a resident of [facility]. Her nursing stuff there stated they also noticed some altered mental status which was beyond her baseline. She does have some baseline cognizant impairment; however, it was felt that her mental status changes were more significant and acute. She actually went to her directional drill operator' s office today after coming to the emergency department 3 days ago when she was discharged with followup. When she was at the directional drill operator, they noticed that swelling in her left leg was more pronounced and that indeed she did have some continuing altered mental status, so she was referred for additional evaluation. PAST MEDICAL HISTORY: Significant for: 1. GERD. 2. Cognitive impairment. 3. Congestive heart failure. 4. Overactive bladder. 5. History of breast cancer. 6. Uterine cancer. 7. Degenerative osteoarthritis. 8. Obstructive sleep apnea, on CPAP. 9. Hypertension. 10. History of asthma. PAST SURGICAL HISTORY: 1. Total right knee arthroplasty. The right knee replacement was in 2005. 2. Mastectomy on the right in 1991. 3. Total hysterectomy in 2007. HOME MEDICATIONS: Include: 1. Albuterol 0.083% 2.5 mg inhaled b.i.d. 2. Baby aspirin 81 mg 1 tablet daily. 3. Vitamin B12 1000 mcg daily. 4. Ergocalciferol 50,000 units weekly. 5. Metoprolol succinate XL 12.5 mg 2 times a day. 6. Oxybutynin XL 15 mg p.o. daily. 7. Ramipril 10 mg p.o. daily. ALLERGIES: The patient is allergic to LORATADINE and SULFA and SULFA-BASED ANTIBIOTICS. FAMILY HISTORY: Noncontributory. SOCIAL HISTORY: The patient does not smoke. Does not drink alcohol. Denies any illicit drug use at baseline. She is cognitively impaired. Most of this report is actually being obtained from her nephew who is at the bedside. The patient is a permanent resident of [facility]. REVIEW OF SYSTEMS: The patient is alert, confused. She is alert to person only. Generally, well appearing. Full review of systems is difficult to obtain secondary to condition, although she does complain of pain in the left knee with palpation, but denies any chest pain. No shortness of breath. No abdominal pain. No nausea. No vomiting. No urinary complaints. No diarrhea. She does have a cough, unproductive and no further constitutional complaints. PHYSICAL EXAMINATION VITAL SIGNS: Currently, blood pressure 141/72, heart rate 66, respiratory rate 19, satting 100% on room air, temperature is 97.5. HEENT: The patient is atraumatic, normocephalic. PERRLA with nonicteric sclerae. She has a very dry oral mucosa. NECK: Supple, nontender. No JVD noted. No carotid bruit auscultated. No thyromegaly appreciated. LUNGS: Clear bilaterally to auscultation, slightly diminished at the bases. No appreciable wheezing, rhonchi, or rales noted. CARDIOVASCULAR: S1, S2 were present. No murmurs, gallops, or rubs noted. Rate and rhythm are regular. She is currently regular sinus rhythm on telemetry with no ectopy. ABDOMEN: Soft, nontender, nondistended. Positive bowel sounds in all 4 quadrants. No organomegaly noted. GENITOURINARY: The patient is incontinent at baseline. MUSCULOSKELETAL: There is no clubbing and no cyanosis. She has a significant amount of edema to the left knee, very painful to palpation in the medial portion just medial to the patella. No warmth or erythema noted. No calf pain and no claudication. She does not have a positive straight leg and reports again no calf tenderness. The pain is all localized to the anterior knee. She has +2 distal pulses palpable. NEUROLOGIC: She is confused at baseline, but otherwise intact. PSYCHIATRIC: She is cooperative and appropriate. LABORATORY DATA: WBCs 4.5, RBCs 4.55, hemoglobin 13.1, hematocrit 39, platelets 222. Sodium 132, potassium 4.2, chloride 100, CO2 of 28, BUN 7, creatinine 0.81, GFR is 66.6. Glucose 101, lactic acid 1.0, calcium 8.9, magnesium 1.7. Total bilirubin 0.7, AST 15, ALT 11, alk phos 57, ammonia 21. Total creatinine kinase 34. Troponin is 0.06. Total protein 5.5, albumin 3.4, globulin 2.1, TSH is 0.66. IMPRESSION AND PLAN: This is an 87-year-old female with multiple comorbid conditions who likely has very degenerative arthritis and some baseline cognitive impairment that may also be advancing. Looks like she may have baseline urinary tract infection at this time as well. So, we have decided to admit this patient to observation status. She has already received ceftriaxone 1 g in the ER. We will continue this. She does have a slight cough, I am not sure if this is from her ramipril or her baseline asthma and may be some bronchitis. Looks like there are small infiltrates bilaterally on her chest x- ray, but it does not look like overt pneumonia at this time. Also, she has no fevers, fatigue, or chills and no white count, so clinically I do not believe that she actually has a pneumonia brewing, but she does have some changes secondary to her interstitial lung disease. She will be continued on her albuterol 2 times a day. I started her on some Mucinex as well for her cough. For the knee and the inability to ambulate, the knee x-ray showed small effusion from the other day. It appears that these effusion may be getting worse. We sent her for an MRI of the left lower extremity. The patient may benefit from draining of the effusion if they continues to impair her ability to ambulate even with a walker. We will address this with Orthopedics if there are any acute changes on that scan tomorrow. The patient will receive gentle hydration with IV normal saline. Her sodium is a little bit low, but it is chronically low. Also, her first troponin was mildly elevated at 0.06; however, after reviewing the rest of her troponins from previous admissions, it appears she is chronically baseline, mildly elevated; however, given her history of heart failure in the past, in case there was any demand ischemia secondary to her acute illness. Right now, we will continue to trend the troponins for 2 more rounds. She will be continued on her home medications. She does not appear to need pain medications at this time because she is not ambulating; however, we will obtain a physical therapy evaluation. I have had a discussion with Reji, who is the patient's nephew who is her medical healthcare proxy and regarding her discharge planning back to [facility], she may need enhanced care after this. The family is aware and these issues can also be addressed with case management and the staff at [facility] tomorrow. Code status, the patient is a DNR. For DVT prophylaxis, we will place her on heparin 5000 q.8 hours. The rest of the patient's course will be determined by further diagnostics, laboratories and any other input from other providers as warranted during this admission. TIME SPENT: I spent approximately 60 minutes on this admission interacting with both the patient and her family members and evaluating her chart and current workup. TRISTIAN OVALLE, ALONZO [id number]/[facility] #: [id number] ANTIONETTE
--- NOTE | 2017-10-21 01:39 | ED ---
Eliz Santana Abhishek, scribed for Rody Leggett MD on 10/20/17 at 2118 . Progress - Progress Note Progress Note: The pt was signed out by Dr. Troncoso, pending disposition. Course/Dx - Course Course Of Treatment: The case was discussed with Dr. Mccain and we accepted pt care. The pt will be admitted to his service. The dx will be bilateral pneumonia. - Diagnoses Provider Diagnoses: Bilateral pneumonia The documentation as recorded by the Eliz alvarez Abhishek accurately reflects the service I personally performed and the decisions made by Betsey callejas Abdul, MD.
[2017-10-21] MEDS: Heparin VIAL(*) 5000 UNITS/ML VIAL (FIVE THOUSAND) SUBCUT SCH ×3 (05:22→21:11)
[2017-10-21 05:28] LABS: ABS Basophils 0 10^3/ul (0-0.2); ABS Eosinophils 0 10^3/ul (0-0.6); ABS Lymphocytes 0.7 10^3/ul (1.0-4.8); ABS Monocytes 0.5 10^3/ul (0-0.8); ABS Neutrophils 2.6 10^3/ul (1.5-7.7); ABS Nucleated RBC 0 10^3/ul; Eosinophil % 0.3 % (0-6); Hematocrit 39 % (35-47); Lymphocyte % 18.8 % (25-47); Mean Corpuscular HGB Conc 33 g/dl (31-36); Mean Corpuscular Hemoglobin 28 pg (27-31); Mean Corpuscular Volume 86 fL (80-97); Mean Platelet Volume 7 um3 (7.4-10.4); Nucleated Red Blood Cells % 0.1; Platelet Count 184 10^3/ul (150-450); Red Blood Count 4.58 10^6/ul (4.0-5.4); Red Cell Distribution Width 15 % (10.5-15)
[2017-10-21 05:46] LABS: EGFR Non-African American 76.3 (>60)
[2017-10-21] MEDS: Albuterol 2.5 MG/3 ML NEB.SOL* (0.083%) INH SCH ×2 (08:47→19:50)
[2017-10-21] MEDS: Oxybutynin XL TAB* 5 MG PO SCH (09:06)
[2017-10-21] MEDS: Ramipril CAP* 5 MG PO SCH (09:07)
[2017-10-21] MEDS: guaiFENesin ER TAB 600 MG PO SCH ×2 (09:07→21:03)
[2017-10-21] MEDS: Potassium Chlor TAB* 20 MEQ TAB.ER PO SCH (09:07)
[2017-10-21] MEDS: Cholestyramine Resin* 4 GM POWDER PO SCH (09:09)
[2017-10-21] MEDS: Aspirin EC Low Dose* 81 MG TAB.EC PO SCH (09:11)
[2017-10-21] MEDS: Metoprolol Succinate XL TAB* 25 MG PO SCH ×2 (09:11→21:04)
[2017-10-21] MEDS: Lactobacillus Acidophilu (GG)* 1 CAP CAP PO SCH (09:11)
[2017-10-21] MEDS: Famotidine TAB* 20 MG PO SCH ×2 (09:12→21:02)
[2017-10-21] MEDS: Magnesium Oxide TAB* 400 MG PO SCH (09:14)
[2017-10-21] MEDS: FLUoxetine CAP* 20 MG PO SCH (09:14)
[2017-10-21] MEDS: Memantine TAB* 5 MG PO SCH ×2 (09:14→21:03)
[2017-10-21] MEDS: Donepezil TAB* 5 MG PO SCH (09:14)
[2017-10-21 12:47] LABS: Uric Acid 3.3 mg/dL (2.3-6.6)
[2017-10-21] MEDS ORDERED: Furosemide TAB* 40 MG PO SCH (14:00)
[2017-10-21] MEDS ORDERED: cefTRIAXone(*) 1 GM in NS 0.9% 50 ML* 50 ML IVPB SCH (14:00)
[2017-10-21] MEDS: cefTRIAXone 1000 MG SYRINGE IVPB Q24H IVPB SCH ×2 (14:05)
[2017-10-21] MEDS ORDERED: Acetaminophen TAB* 325 MG PO PRN (14:34)
--- NOTE | 2017-10-21 14:48 | PN ---
Subjective Date of Service: 10/21/17 Interval History: Niece at bedside. Pt baseline is oriented to place, year (neither today). Pt fell two weeks ago, slipped out of bed. Cough since Wednesday. walked with PT. in [facility] (not enhanced) UA w/o e/o UTI Pt not able to give good history. Now spiking fevers this afternoon 101. ankle edema improved compared to Wednesday. BNP added, 1621 Objective Active Medications: Albuterol (Ventolin 2.5 Mg/3 Ml Neb.Diana*) 2.5 mg INH BID [facility] Last Admin: 10/21/17 08:47 Dose: 2.5 mg Aspirin (Aspirin Ec Low Dose*) 81 mg PO DAILY [facility] Last Admin: 10/21/17 09:11 Dose: 81 mg Atorvastatin Calcium (Lipitor*) 20 mg PO BEDTIME [facility] Last Admin: 10/20/17 23:15 Dose: 20 mg Cholestyramine Resin (Questran*) 4 gm PO DAILY [facility] Last Admin: 10/21/17 09:09 Dose: 4 gm Donepezil HCl (Aricept Tab*) 10 mg PO DAILY [facility] Last Admin: 10/21/17 09:14 Dose: 10 mg Famotidine (Pepcid Tab*) 20 mg PO BID [facility] Last Admin: 10/21/17 09:12 Dose: 20 mg Fluoxetine HCl (Prozac Cap*) 20 mg PO DAILY [facility] Last Admin: 10/21/17 09:14 Dose: 20 mg Guaifenesin (Mucinex*) 600 mg PO BID [facility] Last Admin: 10/21/17 09:07 Dose: 600 mg Heparin Sodium (Porcine) (Heparin Vial(*)) 5,000 units SUBCUT Q8HR [facility] Last Admin: 10/21/17 13:08 Dose: 5,000 units Ceftriaxone Sodium 1,000 mg/ (Sterile Water) 10 mls @ 40 mls/hr IVPB Q24H [facility] Last Admin: 10/21/17 14:05 Dose: 40 mls/hr Lactobacillus Rhamnosus (Culturelle*) 1 cap PO DAILY [facility] Last Admin: 10/21/17 09:11 Dose: 1 cap Magnesium Oxide (Magox 400 Tab*) 400 mg PO DAILY [facility] Last Admin: 10/21/17 09:14 Dose: 400 mg Memantine (Namenda Tab*) 5 mg PO BID [facility] Last Admin: 10/21/17 09:14 Dose: 5 mg Metoprolol Succinate (Toprol Xl Tab*) 12.5 mg PO BID [facility] Last Admin: 10/21/17 09:11 Dose: 12.5 mg Oxybutynin Chloride (Ditropan Xl Tab*) 15 mg PO DAILY [facility] Last Admin: 10/21/17 09:06 Dose: 15 mg Potassium Chloride (Klor Con Er Tab*) 20 meq PO DAILY [facility] Last Admin: 10/21/17 09:07 Dose: 20 meq Ramipril (Altace Cap*) 10 mg PO DAILY [facility] Last Admin: 10/21/17 09:07 Dose: 10 mg Vital Signs - 8 hr 10/21/17 13:45 Temperature 101 F Pulse Rate 67 Respiratory 18 Rate Blood Pressure 138/80 (mmHg) O2 Sat by Pulse 99 Oximetry Oxygen Devices in Use Now: Nasal Cannula Appearance: NAD, sitting in chair, flat affect. Eyes: No Scleral Icterus, PERRLA Ears/Nose/Mouth/Throat: NL Teeth, Lips, Gums Respiratory: - - slight crackles at bases, mild rhonchi mid right lung. no wheezing. Cardiovascular: NL Sounds; No Murmurs; No JVD, RRR Abdominal: NL Sounds; No Tenderness; No Distention, No Hepatosplenomegaly Extremities: - - trace edema b/l. left knee with effusion but no warmth or erythema. Skin: No Rash or Ulcers Neurological: - - Oriented to name and Nutrition: Taking PO's Result Diagrams: 10/21/17 05:13 10/21/17 05:13 Additional Lab and Data: Laboratory Results - last 24 hr 10/20/17 10/20/17 10/20/17 15:34 15:34 15:34 WBC 4.5 RBC 4.55 Hgb 13.1 Hct 39 MCV 85 MCH 29 MCHC 34 RDW 15 Plt Count 222 MPV 7 L Neut % (Auto) 66.7 Lymph % (Auto) 17.4 L [place] % (Auto) 14.4 H Eos % (Auto) 0.5 Baso % (Auto) 1.0 Absolute Neuts (auto) 3.0 Absolute Lymphs (auto) 0.8 L Absolute Monos (auto) 0.6 Absolute Eos (auto) 0 Absolute Basos (auto) 0 Absolute Nucleated RBC 0 Nucleated RBC % 0.1 Sodium 132 L Potassium 4.2 Chloride 100 L Carbon Dioxide 28 Anion Gap 4 BUN 7 Creatinine 0.81 Est GFR ( Amer) 85.6 Est GFR (Non-Af Amer) 66.6 BUN/Creatinine Ratio 8.6 Glucose 101 H Lactic Acid 1.0 Uric Acid Calcium 8.9 Magnesium 1.7 L Total Bilirubin 0.70 AST 15 ALT 11 Alkaline Phosphatase 57 Ammonia Total Creatine Kinase 34 Troponin I 0.06 H* B-Natriuretic Peptide Total Protein 5.5 L Albumin 3.4 Globulin 2.1 Albumin/Globulin Ratio 1.6 Procalcitonin TSH 0.66 Urine Color Urine Appearance Urine pH Ur Specific [place] Urine Protein Urine Ketones Urine Blood Urine Nitrate Urine Bilirubin Urine Urobilinogen Ur Leukocyte Esterase Urine WBC (Auto) Urine RBC (Auto) Urine Bacteria Urine Glucose 10/20/17 10/20/17 10/20/17 15:34 17:00 22:16 WBC RBC Hgb Hct MCV MCH MCHC RDW Plt Count MPV Neut % (Auto) Lymph % (Auto) [place] % (Auto) Eos % (Auto) Baso % (Auto) Absolute Neuts (auto) Absolute Lymphs (auto) Absolute Monos (auto) Absolute Eos (auto) Absolute Basos (auto) Absolute Nucleated RBC Nucleated RBC % Sodium Potassium Chloride Carbon Dioxide Anion Gap BUN Creatinine Est GFR ( Amer) Est GFR (Non-Af Amer) BUN/Creatinine Ratio Glucose Lactic Acid Uric Acid Calcium Magnesium Total Bilirubin AST ALT Alkaline Phosphatase Ammonia 21 Total Creatine Kinase Troponin I 0.05 H* B-Natriuretic Peptide Total Protein Albumin Globulin Albumin/Globulin Ratio Procalcitonin TSH Urine Color Yellow Urine Appearance Clear Urine pH 5.0 Ur Specific [place] 1.017 Urine Protein Negative Urine Ketones Trace A Urine Blood 1+ A Urine Nitrate Negative Urine Bilirubin Negative Urine Urobilinogen Negative Ur Leukocyte Esterase Negative Urine WBC (Auto) Absent Urine RBC (Auto) 3+(>10/hpf) A Urine Bacteria Absent Urine Glucose Negative 10/21/17 10/21/17 10/21/17 00:16 05:13 05:13 WBC 4.0 RBC 4.58 Hgb 13.0 Hct 39 MCV 86 MCH 28 MCHC 33 RDW 15 Plt Count 184 MPV 7 L Neut % (Auto) 66.3 Lymph % (Auto) 18.8 L [place] % (Auto) 13.5 H Eos % (Auto) 0.3 Baso % (Auto) 1.1 Absolute Neuts (auto) 2.6 Absolute Lymphs (auto) 0.7 L Absolute Monos (auto) 0.5 Absolute Eos (auto) 0 Absolute Basos (auto) 0 Absolute Nucleated RBC 0 Nucleated RBC % 0.1 Sodium 132 L Potassium 3.9 Chloride 101 Carbon Dioxide 26 Anion Gap 5 BUN 7 Creatinine 0.72 Est GFR ( Amer) 98.1 Est GFR (Non-Af Amer) 76.3 BUN/Creatinine Ratio 9.7 Glucose 99 Lactic Acid Uric Acid 3.3 Calcium 8.4 L Magnesium Total Bilirubin AST ALT Alkaline Phosphatase Ammonia Total Creatine Kinase Troponin I 0.05 H* B-Natriuretic Peptide Total Protein Albumin Globulin Albumin/Globulin Ratio Procalcitonin TSH Urine Color Urine Appearance Urine pH Ur Specific [place] Urine Protein Urine Ketones Urine Blood Urine Nitrate Urine Bilirubin Urine Urobilinogen Ur Leukocyte Esterase Urine WBC (Auto) Urine RBC (Auto) Urine Bacteria Urine Glucose 10/21/17 10/21/17 05:13 05:13 WBC RBC Hgb Hct MCV MCH MCHC RDW Plt Count MPV Neut % (Auto) Lymph % (Auto) [place] % (Auto) Eos % (Auto) Baso % (Auto) Absolute Neuts (auto) Absolute Lymphs (auto) Absolute Monos (auto) Absolute Eos (auto) Absolute Basos (auto) Absolute Nucleated RBC Nucleated RBC % Sodium Potassium Chloride Carbon Dioxide Anion Gap BUN Creatinine Est GFR ( Amer) Est GFR (Non-Af Amer) BUN/Creatinine Ratio Glucose Lactic Acid Uric Acid Calcium Magnesium Total Bilirubin AST ALT Alkaline Phosphatase Ammonia Total Creatine Kinase Troponin I B-Natriuretic Peptide 1621 H Total Protein Albumin Globulin Albumin/Globulin Ratio Procalcitonin < 0.1 TSH Urine Color Urine Appearance Urine pH Ur Specific [place] Urine Protein Urine Ketones Urine Blood Urine Nitrate Urine Bilirubin Urine Urobilinogen Ur Leukocyte Esterase Urine WBC (Auto) Urine RBC (Auto) Urine Bacteria Urine Glucose Assess/Plan/Problems-Billing Assessment: 87 yo female from [facility] w/ H dementia, ROOPA on CPAP, HTN, CHF, knee OA p /w worsening orientation, recent fall, now inability to ambulate and large left knee effusion. Coughing, CXR w/ small b/l basilar infiltrate. Now febrile. BNP elevated. #CHF - BNP elevated to 1621 - ECHO 01/20/17 EF 45-50%, mod pHTN, mod MVR. Will repeat. - not on home diuretics. just saw Cardiology day of admission (they sent to ER) - gave lasix 40mg po this afternoon. strict io, daily weights. Likely 20IV BID. - troponin flat 0.05, 0.05. On aspirin 81mg daily. - ACEI (ramipril 10mg), BB (metoprolol 12.5mg BID. #Fever, b/l small basilar infiltrates on CXR, cough, - continue ceftriaxone - add azithromycin 500mg IV daily x 3 days - blood cultures - sputum cultures - MRSA nares - Strep and Legionella Urine Antigen - repeat CXR in AM #left knee effusion - large on MRI - initially reportedly tender in ED, not currently - now that spiking fevers will get ortho consult for consideration for arthrocenteis to rule out septic joint and possible provide symptomatic relief. however not currently erythematous or tender though now on antibiotics. #fall from bed ~2 weeks ago - CTH negative - PT #dementia - aricept, namenda #HTN - metoprolol 12.5mg BID - ramipril 10mg #ROOPA - CPAP qhs #overactive bladder - oxybutinin DVT PPx: start heparin 5000 TID PT: may benefit from short term rehab. diet: heart healthy CODE: DNR Status and Disposition: medicine inpatient.
[2017-10-21] MEDS: Azithromycin IV(*) 500 MG in NS 0.9% 250 ML* 250 ML IVPB SCH (16:11)
--- NOTE | 2017-10-21 16:43 | PN ---
Progress Note - Progress Note Date of Service: 10/21/17 SOAP: Subjective: Kati is an 87 year old female who resides at [facility] with a PMH significant for dementia and left knee OA who presented to the ED on 10/20 from cardiology with increased decline in mental status and increased left leg swelling. Today, patient seen sitting comfortably in chair. She states she is not currently having knee pain but she occasionally has pain. She cannot tell me if one knee hurts more than other. She denies any recent falls. Previous note by Dr. Hudson states that patient's niece reports a fall 2 weeks ago. She denies any fevers or chills, numbness or tingling. Objective: Vital Signs Temp 101 F 10/21/17 13:45 Pulse 67 10/21/17 13:45 Resp 18 10/21/17 13:45 BP 138/80 10/21/17 13:45 Pulse Ox 99 10/21/17 13:45 Intake & Output 10/20/17 10/21/17 10/21/17 18:59 06:59 18:59 Intake Total 510 122 240 Balance 510 122 240 Weight 180 lb 180 lb Intake: IV Fluids 510 12 IVPB 110 Oral 0 240 Laboratory Results - last 24 hr 10/20/17 10/20/17 10/20/17 15:34 17:00 22:16 WBC RBC Hgb Hct MCV MCH MCHC RDW Plt Count MPV Neut % (Auto) Lymph % (Auto) [place] % (Auto) Eos % (Auto) Baso % (Auto) Absolute Neuts (auto) Absolute Lymphs (auto) Absolute Monos (auto) Absolute Eos (auto) Absolute Basos (auto) Absolute Nucleated RBC Nucleated RBC % Sodium Potassium Chloride Carbon Dioxide Anion Gap BUN Creatinine Est GFR ( Amer) Est GFR (Non-Af Amer) BUN/Creatinine Ratio Glucose Uric Acid Calcium Troponin I 0.05 H* B-Natriuretic Peptide Procalcitonin TSH 0.66 Urine Color Yellow Urine Appearance Clear Urine pH 5.0 Ur Specific [place] 1.017 Urine Protein Negative Urine Ketones Trace A Urine Blood 1+ A Urine Nitrate Negative Urine Bilirubin Negative Urine Urobilinogen Negative Ur Leukocyte Esterase Negative Urine WBC (Auto) Absent Urine RBC (Auto) 3+(>10/hpf) A Urine Bacteria Absent Urine Glucose Negative 10/21/17 10/21/17 10/21/17 00:16 05:13 05:13 WBC 4.0 RBC 4.58 Hgb 13.0 Hct 39 MCV 86 MCH 28 MCHC 33 RDW 15 Plt Count 184 MPV 7 L Neut % (Auto) 66.3 Lymph % (Auto) 18.8 L [place] % (Auto) 13.5 H Eos % (Auto) 0.3 Baso % (Auto) 1.1 Absolute Neuts (auto) 2.6 Absolute Lymphs (auto) 0.7 L Absolute Monos (auto) 0.5 Absolute Eos (auto) 0 Absolute Basos (auto) 0 Absolute Nucleated RBC 0 Nucleated RBC % 0.1 Sodium 132 L Potassium 3.9 Chloride 101 Carbon Dioxide 26 Anion Gap 5 BUN 7 Creatinine 0.72 Est GFR ( Amer) 98.1 Est GFR (Non-Af Amer) 76.3 BUN/Creatinine Ratio 9.7 Glucose 99 Uric Acid 3.3 Calcium 8.4 L Troponin I 0.05 H* B-Natriuretic Peptide Procalcitonin TSH Urine Color Urine Appearance Urine pH Ur Specific [place] Urine Protein Urine Ketones Urine Blood Urine Nitrate Urine Bilirubin Urine Urobilinogen Ur Leukocyte Esterase Urine WBC (Auto) Urine RBC (Auto) Urine Bacteria Urine Glucose 10/21/17 10/21/17 05:13 05:13 WBC RBC Hgb Hct MCV MCH MCHC RDW Plt Count MPV Neut % (Auto) Lymph % (Auto) [place] % (Auto) Eos % (Auto) Baso % (Auto) Absolute Neuts (auto) Absolute Lymphs (auto) Absolute Monos (auto) Absolute Eos (auto) Absolute Basos (auto) Absolute Nucleated RBC Nucleated RBC % Sodium Potassium Chloride Carbon Dioxide Anion Gap BUN Creatinine Est GFR ( Amer) Est GFR (Non-Af Amer) BUN/Creatinine Ratio Glucose Uric Acid Calcium Troponin I B-Natriuretic Peptide 1621 H Procalcitonin < 0.1 TSH Urine Color Urine Appearance Urine pH Ur Specific [place] Urine Protein Urine Ketones Urine Blood Urine Nitrate Urine Bilirubin Urine Urobilinogen Ur Leukocyte Esterase Urine WBC (Auto) Urine RBC (Auto) Urine Bacteria Urine Glucose General: Patient is not oriented to place or time. NAD. LLE: Skin is intact, no erythema, warmth. Fullness in posterior lateral aspect of knee. No pain with flexion or extension of knee. Tenderness with palpation of medial joint line. No pain with palpation of patella, lateral joint, medial or lateral femoral condyles or epicondyles. Calf soft, nontender. 2+ DP pulse. Sensation grossly intact distally. Assessment: 1. Left knee effusion. 2. Left knee OA. Plan: 1. Low suspicious for septic arthritis left knee. 2. Formal consult by Dr. Melchor later today.
[2017-10-21] MEDS ORDERED: Furosemide IV* 10 MG/ML 2 ML VIAL (20 MG) IV SCH (19:00)
[2017-10-21] MEDS ORDERED: methylPREDNISolone ACETATE 80* 80 MG/ML 1 ML VIAL IM ONE (20:17)
[2017-10-21] MEDS ORDERED: Bupivacaine 0.5%* 50 ML VIAL INJ ONE (20:19)
[2017-10-21] MEDS: Atorvastatin* 20 MG TAB PO SCH (20:58)
[2017-10-21] MEDS: Furosemide IV* 10 MG/ML 2 ML VIAL (20 MG) IV SCH (21:08)
--- NOTE | 2017-10-22 01:29 | CONS ---
ORTHOPEDIC CONSULTATION NOTE: DATE OF CONSULTATION: 10/21/17 Thank you for this orthopedic consultation. CHIEF COMPLAINT: Left knee pain and swelling, inability to ambulate. HISTORY OF PRESENT ILLNESS: Ms. Reed is an 87-year-old female who is a normal resident of [facility]. She has baseline altered mental status. On , she was seen at her geriatric nurse practitioner, who noted left leg swelling and she had difficulty ambulating with an acute decline in her mental status. She was [facility]. She was admitted for observation because of mental status changes and left knee pain with inability to ambulate. Over the last 24 hours, the patient has been largely unable to walk. She has pain and swelling in the left knee. When I speak to the patient today with her niece at the bedside, she has a long history of arthritic knees with pain and swelling. She had right total knee arthroplasty in the past and not had much treatment for the left knee. PAST MEDICAL HISTORY: GERD; congestive heart failure; dementia; overactive bladder; history of breast cancer; history of uterine cancer; degenerative osteoarthritis; obstructive sleep apnea, on CPAP; hypertension; asthma. PAST SURGICAL HISTORY: Right total knee arthroplasty in 2005; right mastectomy in 1991; total abdominal hysterectomy in 2007. HOME MEDICATIONS: 1. Albuterol 2.5 mg inhaled b.i.d. 2. Baby aspirin 81 mg p.o. daily. 3. Vitamin B12 1000 mcg p.o. daily. 4. Ergocalciferol 50,000 unit q. weekly. 5. Metoprolol XL 12.5 mg p.o. b.i.d. 6. Oxybutynin XL 15 mg p.o. daily. 7. Ramipril 10 mg p.o. daily. ALLERGIES: The patient allergic to LORATADINE, SULFA, and SULFA-BASED ANTIBIOTICS. FAMILY HISTORY: Negative. SOCIAL HISTORY: The patient is a resident of [facility]. She only ambulates with a walker to breakfast, lunch, and dinner. Otherwise, she is essentially nonambulatory. No tobacco, alcohol, or recreational drug use. Cognitively impaired. Her power of assistant city attorney healthcare proxy is her niece. REVIEW OF SYSTEMS: Fourteen systems are reviewed with the patient and her niece today. Positive for the left knee pain and swelling, which she reports is chronic. Negative for fevers, chills, chest pain, or shortness of breath. Otherwise, the patient reports review of systems is negative or not relevant. PHYSICAL EXAMINATION: Vital Signs: Temperature 99.1, heart rate 65, blood pressure 114/44, O2 saturation 99% on room air. General: The patient is a well nourished female, in no apparent distress, alert and oriented x2, accompanied by her supportive niece at the bedside. Pleasant mood and appropriate affect. Gait is not assessed. The patient declined standing at the present time. HEENT: Atraumatic/normocephalic. Pupils are equal and reactive to light. Chest: Unlabored breathing. Left lower extremity, the patient's skin is intact. There is no warmth or erythema. Moderate effusion with an enlarged arthritic knee. Tenderness along with medial joint line and parapatellar region. She has 15 to 90 degrees of flexion with some patellofemoral crepitus and pain. No varus or valgus instability. Distally neurovascularly intact with 5/5, ankle dorsiflexion, plantar flexion strength. Full sensation to light touch in ulnar nerve distribution and 2+ palpable DP pulse. RADIOGRAPHS: Multiple plain films are reviewed of the patient's left knee, which showed end-stage bone on bone arthritis. This is tricompartmental with osteophyte formation, joint space narrowing, and and subchondral sclerosis. ASSESSMENT AND PLAN: Ms. Reed is an 87-year-old female admitted to [facility] with altered mental status and inability to ambulate. When discussing her ambulation with the patient and her niece, she ambulates very a little at home. She has chronic baseline left knee pain due to arthritis. The patient currently has Tylenol for pain control and I encouraged this to be given around the clock if appropriate. I have very low suspicion that this patient's knee is infected. I offered the patient an intraarticular steroid injection and she accepts. Informed consent was obtained from the patient and her healthcare proxy, her niece and this is signed at the bedside. I will order 80 mg Depo-Medrol and 6 cc 0.25% Marcaine. My plan is to inject the left knee tomorrow morning when these drugs have been assembled and at the bedside. Until then, she can be weightbearing as tolerated. I do recommend formal physical therapy with a rolling walker. [id number]/[facility] #: [id number] [facility]
[2017-10-22] MEDS: Heparin VIAL(*) 5000 UNITS/ML VIAL (FIVE THOUSAND) SUBCUT SCH ×3 (05:27→21:21)
--- NOTE | 2017-10-22 07:39 | PN ---
Progress Note - Progress Note Date of Service: 10/22/17 SOAP: Subjective: Pt. reports pain left knee with ambulation, none at rest. Objective: Vital Signs: Temp Pulse Resp BP Pulse Ox 98.3 F 44 20 130/53 94 10/22/17 04:05 10/22/17 04:05 10/22/17 04:05 10/22/17 04:05 10/22/17 04:05 Laboratory Results - last 24 hr 10/21/17 10/21/17 10/21/17 05:13 05:13 05:13 Sodium 132 L Potassium 3.9 Chloride 101 Carbon Dioxide 26 Anion Gap 5 BUN 7 Creatinine 0.72 Est GFR ( Amer) 98.1 Est GFR (Non-Af Amer) 76.3 BUN/Creatinine Ratio 9.7 Glucose 99 Uric Acid 3.3 Calcium 8.4 L B-Natriuretic Peptide 1621 H Procalcitonin < 0.1 Ur Random Creatinine Ur Random Sodium 10/21/17 18:50 Sodium Potassium Chloride Carbon Dioxide Anion Gap BUN Creatinine Est GFR ( Amer) Est GFR (Non-Af Amer) BUN/Creatinine Ratio Glucose Uric Acid Calcium B-Natriuretic Peptide Procalcitonin Ur Random Creatinine 92.08 Ur Random Sodium 96 LLE - skin c/d/i. mod effusion left knee with mjl ttp. no erythema or warmth. distally nvi. Assessment: 87 yo F with chronic L knee pain secondary to severe L knee OA Plan: L knee injection this am - see dictated procedure note PT/OT recommend wbat lle with RW f/u as outpatient - Pt's POA given the follow up information
[2017-10-22] MEDS: Albuterol 2.5 MG/3 ML NEB.SOL* (0.083%) INH SCH ×2 (07:42→19:46)
--- NOTE | 2017-10-22 08:09 | ED ---
Rayray Santana Angela, scribed for Javier Troncoso MD on 10/20/17 at 1457 . Altered Mental Status - HPI Summary HPI Summary: This pt is a 87 y/o female, accompanied by son, presenting to [facility] for altered mental status. Son reports the pt has been living in [place]. He states that 5 days ago the nurses in [place] noticed the pt's left leg and abd were swollen. 3 days ago [place] called the son and they brought the pt to [facility]. She had an XR of her left knee and it was negative. They were told to follow up with pt's eyewear manufacturing tech. They met with PA from Dr. Salinas's office and were told to come to the ED. Son denies pt had any falls. Son additionally notes the pt has been more confused than normal and 2 days ago her sentences were not making any sense. Yesterday, pt was unable to state her date or remember pt's [id number]-[id number]'s name. Son reports the pt has gone from walking with a cane to now walking with a walker, but with some difficulties. HPI IS LIMITED DUE TO LEVEL 5 CAVEAT - pt has alzheimer's - History Of Current Complaint Chief Complaint: EDGeneral Stated Complaint: POSS STROKE Time Seen by Provider: 10/20/17 14:44 Hx Obtained From: Patient Hx From Patient Unobtainable Due To: Dementia Onset/Duration: Still Present Timing: Constant, Lasting Days Severity Currently: Moderate Character: Confusion Aggravating Factor(s): Nothing Alleviating Factor(s): Nothing - Allergies/Home Medications Allergies/Adverse Reactions: Allergies Allergy/AdvReac Type Severity Reaction Status Date / Time loratadine [From Claritin] Allergy Unknown Verified 10/20/17 15:02 Reaction Details Sulfa (Sulfonamide Allergy Unknown Verified 10/20/17 15:02 Antibiotics) Reaction Details Home Medications: Home Medications Albuterol 2.5MG/3ML (0.083%)* [Ventolin 2.5 MG/3 ML NEB.RADHA*] 2.5 mg INH BID [History Confirmed 10/20/17] Aspirin EC Low Dose* [Ecotrin EC Low Dose 81 MG*] 81 mg PO DAILY 10/20/17 [ History Confirmed 10/20/17] Cyanocobalamin TAB* [Vitamin B12 TAB*] 1,000 mcg PO DAILY 10/20/17 [History Confirmed 10/20/17] Ergocalciferol CAP* [Drisdol CAP*] 50,000 unit PO WEEKLY 10/20/17 [History Confirmed 10/20/17] Metoprolol Succinate XL TAB* [Toprol XL TAB*] 12.5 mg PO BID 10/20/17 [History Confirmed 10/20/17] Oxybutynin XL TAB* [Ditropan XL TAB*] 15 mg PO DAILY 10/20/17 [History Confirmed 10/20/17] Ramipril CAP* [Altace CAP*] 10 mg PO DAILY 10/20/17 [History Confirmed 10/20/17] PMH/Surg Hx/FS Hx/Imm Hx Endocrine/Hematology History: Reports: Hx Thyroid Disease, Other Endocrine/ Hematological Disorders - Vitamin B12 Deficiency Denies: Hx Diabetes Cardiovascular History: Reports: Hx Hypercholesterolemia, Hx Hypertension, Other Cardiovascular Problems/Disorders - Heart Disease Denies: Hx Pacemaker/ICD Respiratory History: Reports: Hx Asthma, Hx Sleep Apnea - current BiPAP user History: Denies: Hx Renal Disease Musculoskeletal History: Reports: Hx Osteoporosis Sensory History: Reports: Hx Contacts or Glasses - at home, Hx Hearing Aid - DOESN'T WEAR ALL THE TIME Opthamlomology History: Reports: Hx Contacts or Glasses - at home Neurological History: Reports: Hx Dementia, Other Neuro Impairments/Disorders - Alzheimers Psychiatric History: Denies: Hx Panic Disorder - Cancer History Cancer Type, 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 Rt MASTECTOMY - 1991. TOTAL HYSTERECTOMY - 2007 - Immunization History Date of Influenza Vaccine: 05/25 Infectious Disease History: No Infectious Disease History: Denies: Traveled Outside the [place] in Last 30 Days - Family History Known Family History: Positive: Hypertension Family History: FHx of Breast CA (Aunt) - Social History Alcohol Use: None Substance Use Type: Reports: None Smoking Status (MU): Former Smoker Amount Used/How Often: 1 ppd Length of Time of Smoking/Using Tobacco: 10 years Have You Smoked in the Last Year: No Review of Systems - ROS Summary Review of Systems Summary: ROS IS LIMITED DUE TO LEVEL 5 CAVEAT - pt has alzheimer's Negative: Fever, Chills Musculoskeletal: Other - left knee swelling Neurological: Other - POS: increased confusion, All Other Systems Reviewed And Are Negative: No Physical Exam - Summary Physical Exam Summary: VITAL SIGNS: Reviewed. GENERAL: Patient is an elderly and fragile female who is lying comfortable in the stretcher. Patient is not in any acute respiratory distress. HEAD AND FACE: No signs of trauma. No ecchymosis, hematomas or skull depressions. No sinus tenderness. EYES: PERRLA, EOMI x 2, No injected conjunctiva, no nystagmus. No photophobia. EARS: Hearing grossly intact. Ear canals and tympanic membranes are within normal limits. MOUTH: Oropharynx within normal limits. NECK: Supple, trachea is midline, no adenopathy, no JVD, no carotid bruit, no c- spine tenderness, neck with full ROM. No meningeal signs, no Kernig's or brudzinskis signs. CHEST: Symmetric, no tenderness at palpation LUNGS: Clear to auscultation bilaterally. No wheezing or crackles. CVS: Regular rate and rhythm, S1 and S2 present, no murmurs or gallops appreciated. ABDOMEN: Soft, non-tender. No signs of distention. No rebound no guarding, and no masses palpated. Bowel sounds are normal. EXTREMITIES: FROM in all major joints, no cyanosis or clubbing. Left knee has swelling. NEURO: Alert but not oriented. No acute neurological deficits. Speech is normal and follows commands. SKIN: Dry and warm GCS: 15 Triage Information Reviewed: Yes Vital Signs On Initial Exam: Initial Vitals Temp Pulse Resp BP Pulse Ox 97.5 F 98 18 176/91 93 10/20/17 12:55 10/20/17 12:55 10/20/17 12:55 10/20/17 12:55 10/20/17 12:55 Vital Signs Reviewed: Yes Diagnostics - Vital Signs Vital Signs Temp Pulse Resp BP Pulse Ox 10/20/17 14:00 72 17 147/64 90 10/20/17 13:34 77 20 88 10/20/17 13:33 129/65 10/20/17 12:55 97.5 F 98 18 176/91 93 - Laboratory Lab Results: Lab Results 10/20/17 10/20/17 10/20/17 Range/Units 15:34 15:34 15:34 WBC 4.5 (3.5-10.8) 10^3/ul RBC 4.55 (4.0-5.4) 10^6/ul Hgb 13.1 (12.0-16.0) g/dl Hct 39 (35-47) % MCV 85 (80-97) fL MCH 29 (27-31) pg MCHC 34 (31-36) g/dl RDW 15 (10.5-15) % Plt Count 222 (150-450) 10^3/ul MPV 7 L (7.4-10.4) um3 Neut % (Auto) 66.7 (38-83) % Lymph % (Auto) 17.4 L (25-47) % Burnet % (Auto) 14.4 H (0-7) % Eos % (Auto) 0.5 (0-6) % Baso % (Auto) 1.0 (0-2) % Absolute Neuts (auto) 3.0 (1.5-7.7) 10^3/ul Absolute Lymphs (auto) 0.8 L (1.0-4.8) 10^3/ul Absolute Monos (auto) 0.6 (0-0.8) 10^3/ul Absolute Eos (auto) 0 (0-0.6) 10^3/ul Absolute Basos (auto) 0 (0-0.2) 10^3/ul Absolute Nucleated RBC 0 10^3/ul Nucleated RBC % 0.1 Sodium 132 L (133-145) mmol/L Potassium 4.2 (3.5-5.0) mmol/L Chloride 100 L (101-111) mmol/L Carbon Dioxide 28 (22-32) mmol/L Anion Gap 4 (2-11) mmol/L BUN 7 (6-24) mg/dL Creatinine 0.81 (0.51-0.95) mg/dL Est GFR ( Amer) 85.6 (>60) Est GFR (Non-Af Amer) 66.6 (>60) BUN/Creatinine Ratio 8.6 (8-20) Glucose 101 H (70-100) mg/dL Lactic Acid 1.0 (0.5-2.0) mmol/L Uric Acid (2.3-6.6) mg/dL Calcium 8.9 (8.6-10.3) mg/dL Magnesium 1.7 L (1.9-2.7) mg/dL Total Bilirubin 0.70 (0.2-1.0) mg/dL AST 15 (13-39) U/L ALT 11 (7-52) U/L Alkaline Phosphatase 57 (34-104) U/L Ammonia (16-53) mol/L Total Creatine Kinase 34 (10-223) U/L Troponin I 0.06 H* (<0.04) ng/mL B-Natriuretic Peptide ( - 100) pg/mL Total Protein 5.5 L (6.4-8.9) g/dL Albumin 3.4 (3.2-5.2) g/dL Globulin 2.1 (2-4) g/dL Albumin/Globulin Ratio 1.6 (1-3) Procalcitonin (<0.6) ng/mL TSH 0.66 (0.34-5.60) mcIU/mL Urine Color Urine Appearance Urine pH (5-9) Ur Specific Brooks (1.010-1.030) Urine Protein (Negative) Urine Ketones (Negative) Urine Blood (Negative) Urine Nitrate (Negative) Urine Bilirubin (Negative) Urine Urobilinogen (Negative) Ur Leukocyte Esterase (Negative) Urine WBC (Auto) (Absent) Urine RBC (Auto) (Absent) Urine Bacteria (Absent) Urine Glucose (Negative) 10/20/17 10/20/17 10/20/17 Range/Units 15:34 17:00 22:16 WBC (3.5-10.8) 10^3/ul RBC (4.0-5.4) 10^6/ul Hgb (12.0-16.0) g/dl Hct (35-47) % MCV (80-97) fL MCH (27-31) pg MCHC (31-36) g/dl RDW (10.5-15) % Plt Count (150-450) 10^3/ul MPV (7.4-10.4) um3 Neut % (Auto) (38-83) % Lymph % (Auto) (25-47) % Burnet % (Auto) (0-7) % Eos % (Auto) (0-6) % Baso % (Auto) (0-2) % Absolute Neuts (auto) (1.5-7.7) 10^3/ul Absolute Lymphs (auto) (1.0-4.8) 10^3/ul Absolute Monos (auto) (0-0.8) 10^3/ul Absolute Eos (auto) (0-0.6) 10^3/ul Absolute Basos (auto) (0-0.2) 10^3/ul Absolute Nucleated RBC 10^3/ul Nucleated RBC % Sodium (133-145) mmol/L Potassium (3.5-5.0) mmol/L Chloride (101-111) mmol/L Carbon Dioxide (22-32) mmol/L Anion Gap (2-11) mmol/L BUN (6-24) mg/dL Creatinine (0.51-0.95) mg/dL Est GFR ( Amer) (>60) Est GFR (Non-Af Amer) (>60) BUN/Creatinine Ratio (8-20) Glucose (70-100) mg/dL Lactic Acid (0.5-2.0) mmol/L Uric Acid (2.3-6.6) mg/dL Calcium (8.6-10.3) mg/dL Magnesium (1.9-2.7) mg/dL Total Bilirubin (0.2-1.0) mg/dL AST (13-39) U/L ALT (7-52) U/L Alkaline Phosphatase (34-104) U/L Ammonia 21 (16-53) mol/L Total Creatine Kinase (10-223) U/L Troponin I 0.05 H* (<0.04) ng/mL B-Natriuretic Peptide ( - 100) pg/mL Total Protein (6.4-8.9) g/dL Albumin (3.2-5.2) g/dL Globulin (2-4) g/dL Albumin/Globulin Ratio (1-3) Procalcitonin (<0.6) ng/mL TSH (0.34-5.60) mcIU/mL Urine Color Yellow Urine Appearance Clear Urine pH 5.0 (5-9) Ur Specific Brooks 1.017 (1.010-1.030) Urine Protein Negative (Negative) Urine Ketones Trace A (Negative) Urine Blood 1+ A (Negative) Urine Nitrate Negative (Negative) Urine Bilirubin Negative (Negative) Urine Urobilinogen Negative (Negative) Ur Leukocyte Esterase Negative (Negative) Urine WBC (Auto) Absent (Absent) Urine RBC (Auto) 3+(>10/hpf) A (Absent) Urine Bacteria Absent (Absent) Urine Glucose Negative (Negative) 10/21/17 10/21/17 10/21/17 Range/Units 00:16 05:13 05:13 WBC 4.0 (3.5-10.8) 10^3/ul RBC 4.58 (4.0-5.4) 10^6/ul Hgb 13.0 (12.0-16.0) g/dl Hct 39 (35-47) % MCV 86 (80-97) fL MCH 28 (27-31) pg MCHC 33 (31-36) g/dl RDW 15 (10.5-15) % Plt Count 184 (150-450) 10^3/ul MPV 7 L (7.4-10.4) um3 Neut % (Auto) 66.3 (38-83) % Lymph % (Auto) 18.8 L (25-47) % Burnet % (Auto) 13.5 H (0-7) % Eos % (Auto) 0.3 (0-6) % Baso % (Auto) 1.1 (0-2) % Absolute Neuts (auto) 2.6 (1.5-7.7) 10^3/ul Absolute Lymphs (auto) 0.7 L (1.0-4.8) 10^3/ul Absolute Monos (auto) 0.5 (0-0.8) 10^3/ul Absolute Eos (auto) 0 (0-0.6) 10^3/ul Absolute Basos (auto) 0 (0-0.2) 10^3/ul Absolute Nucleated RBC 0 10^3/ul Nucleated RBC % 0.1 Sodium 132 L (133-145) mmol/L Potassium 3.9 (3.5-5.0) mmol/L Chloride 101 (101-111) mmol/L Carbon Dioxide 26 (22-32) mmol/L Anion Gap 5 (2-11) mmol/L BUN 7 (6-24) mg/dL Creatinine 0.72 (0.51-0.95) mg/dL Est GFR ( Amer) 98.1 (>60) Est GFR (Non-Af Amer) 76.3 (>60) BUN/Creatinine Ratio 9.7 (8-20) Glucose 99 (70-100) mg/dL Lactic Acid (0.5-2.0) mmol/L Uric Acid 3.3 (2.3-6.6) mg/dL Calcium 8.4 L (8.6-10.3) mg/dL Magnesium (1.9-2.7) mg/dL Total Bilirubin (0.2-1.0) mg/dL AST (13-39) U/L ALT (7-52) U/L Alkaline Phosphatase (34-104) U/L Ammonia (16-53) mol/L Total Creatine Kinase (10-223) U/L Troponin I 0.05 H* (<0.04) ng/mL B-Natriuretic Peptide ( - 100) pg/mL Total Protein (6.4-8.9) g/dL Albumin (3.2-5.2) g/dL Globulin (2-4) g/dL Albumin/Globulin Ratio (1-3) Procalcitonin (<0.6) ng/mL TSH (0.34-5.60) mcIU/mL Urine Color Urine Appearance Urine pH (5-9) Ur Specific Brooks (1.010-1.030) Urine Protein (Negative) Urine Ketones (Negative) Urine Blood (Negative) Urine Nitrate (Negative) Urine Bilirubin (Negative) Urine Urobilinogen (Negative) Ur Leukocyte Esterase (Negative) Urine WBC (Auto) (Absent) Urine RBC (Auto) (Absent) Urine Bacteria (Absent) Urine Glucose (Negative) 10/21/17 10/21/17 Range/Units 05:13 05:13 WBC (3.5-10.8) 10^3/ul RBC (4.0-5.4) 10^6/ul Hgb (12.0-16.0) g/dl Hct (35-47) % MCV (80-97) fL MCH (27-31) pg MCHC (31-36) g/dl RDW (10.5-15) % Plt Count (150-450) 10^3/ul MPV (7.4-10.4) um3 Neut % (Auto) (38-83) % Lymph % (Auto) (25-47) % Burnet % (Auto) (0-7) % Eos % (Auto) (0-6) % Baso % (Auto) (0-2) % Absolute Neuts (auto) (1.5-7.7) 10^3/ul Absolute Lymphs (auto) (1.0-4.8) 10^3/ul Absolute Monos (auto) (0-0.8) 10^3/ul Absolute Eos (auto) (0-0.6) 10^3/ul Absolute Basos (auto) (0-0.2) 10^3/ul Absolute Nucleated RBC 10^3/ul Nucleated RBC % Sodium (133-145) mmol/L Potassium (3.5-5.0) mmol/L Chloride (101-111) mmol/L Carbon Dioxide (22-32) mmol/L Anion Gap (2-11) mmol/L BUN (6-24) mg/dL Creatinine (0.51-0.95) mg/dL Est GFR ( Amer) (>60) Est GFR (Non-Af Amer) (>60) BUN/Creatinine Ratio (8-20) Glucose (70-100) mg/dL Lactic Acid (0.5-2.0) mmol/L Uric Acid (2.3-6.6) mg/dL Calcium (8.6-10.3) mg/dL Magnesium (1.9-2.7) mg/dL Total Bilirubin (0.2-1.0) mg/dL AST (13-39) U/L ALT (7-52) U/L Alkaline Phosphatase (34-104) U/L Ammonia (16-53) mol/L Total Creatine Kinase (10-223) U/L Troponin I (<0.04) ng/mL B-Natriuretic Peptide 1621 H ( - 100) pg/mL Total Protein (6.4-8.9) g/dL Albumin (3.2-5.2) g/dL Globulin (2-4) g/dL Albumin/Globulin Ratio (1-3) Procalcitonin < 0.1 (<0.6) ng/mL TSH (0.34-5.60) mcIU/mL Urine Color Urine Appearance Urine pH (5-9) Ur Specific Brooks (1.010-1.030) Urine Protein (Negative) Urine Ketones (Negative) Urine Blood (Negative) Urine Nitrate (Negative) Urine Bilirubin (Negative) Urine Urobilinogen (Negative) Ur Leukocyte Esterase (Negative) Urine WBC (Auto) (Absent) Urine RBC (Auto) (Absent) Urine Bacteria (Absent) Urine Glucose (Negative) Result Diagrams: 10/21/17 05:13 10/21/17 05:13 Lab Statement: Any lab studies that have been ordered have been reviewed, and results considered in the medical decision making process. - Radiology Chest XR Xray Interpretation: Positive (See Comments) - IMPRESSION: Low lung volumes, small bibasilar infiltrates. Dr. Troncoso has reviewed this radiology report Radiology Interpretation Completed By: Radiologist - CT Brain CT CT Interpretation: No Acute Changes - IMPRESSION: Cortical atrophy with chronic microvascular ischemic changes. No acute findings. Dr. Troncoso has reviewed this radiology report. CT Interpretation Completed By: Radiologist - EKG 15:27 Cardiac Rate: Bradycardia EKG Rhythm: Sinus Bradycardia - at 59 bpm EKG Interpretation: No ST elevations. Altered Mental Statu Course/Dx - Course Assessment/Plan: This pt is a 87 y/o female, accompanied by son, presenting to [facility] for altered mental status. Son reports the pt has been living in [place]. He states that 5 days ago the nurses in [place] noticed the pt's left leg and abd were swollen. 3 days ago [place] called the son and they brought the pt to [facility]. She had an XR of her left knee and it was negative. They were told to follow up with pt's eyewear manufacturing tech. They met with PA from Dr. Salinas's office and were told to come to the ED. Son denies pt had any falls. Son additionally notes the pt has been more confused than normal and 2 days ago her sentences were not making any sense. Yesterday, pt was unable to state her date or remember pt's [id number]-[id number]'s name. HPI IS LIMITED DUE TO LEVEL 5 CAVEAT - pt has alzheimer's. Test results without any significant abnormalities except for troponin of 0.06. Urinalysis is negative for UTI. Head CT: Cortical atrophy with chronic microvascular ischemic changes. No acute findings. Chest XR: Low lung volumes, small bibasilar infiltrates. Since the chest XR shows bilateral infiltrates I started the pt on Rocephin, which may be the cause of her weakness and inability to ambulate. I discussed the case with Dr. Hudson, hospitalist, who will consult on the pt for possible admission. The pt will be signed out to Dr. Leggett, pending disposition , awaiting hospitalist consult. - Diagnoses Provider Diagnoses: Weakness, Unable to ambulate, Bilateral pneumonia - Provider Notifications Discussed Care Of Patient With: Vivek Hudson Time Discussed With Above Provider: 18:15 Instructed by Provider To: Other - I discussed pt care with Dr. Hudson, hospitalist, who will consult on the pt. Discharge - Discharge Plan Condition: Stable Disposition: OTHER Discharge Disposition Comment: signed out to Dr. Leggett, pending disposition The documentation as recorded by the Rayray alvarez Angela accurately reflects the service I personally performed and the decisions made by , Javier Troncoso MD.
[2017-10-22] MEDS ORDERED: FLUoxetine CAP* 20 MG PO SCH (09:08)
[2017-10-22] MEDS ORDERED: Ramipril CAP* 5 MG PO SCH (09:08)
[2017-10-22] MEDS ORDERED: Oxybutynin XL TAB* 5 MG PO SCH (09:09)
--- NOTE | 2017-10-22 09:14 | RAD ---
Indication: Cough, 2 views of the chest and shape cardiomegaly. Interstitial edema consistent with vascular congestion is noted. Bilateral pleural effusions are noted. When compared to previous exam October 20, 2017 findings are not significantly changed. IMPRESSION: Cardiomegaly with interstitial edema. Bilateral pleural effusions are noted.
[2017-10-22] MEDS ORDERED: Magnesium Sulfate 1 GM IV* 1 GM/100 ML BAG IV ONE ×2 (09:20→13:45)
[2017-10-22] MEDS: Metoprolol Succinate XL TAB* 25 MG PO SCH (10:03)
[2017-10-22] MEDS: Memantine TAB* 5 MG PO SCH ×2 (10:03→21:18)
[2017-10-22] MEDS: Potassium Chlor TAB* 20 MEQ TAB.ER PO SCH (10:03)
[2017-10-22] MEDS: Magnesium Oxide TAB* 400 MG PO SCH (10:03)
[2017-10-22] MEDS: Aspirin EC Low Dose* 81 MG TAB.EC PO SCH (10:03)
[2017-10-22] MEDS: guaiFENesin ER TAB 600 MG PO SCH ×2 (10:03→21:18)
[2017-10-22] MEDS: Donepezil TAB* 5 MG PO SCH (10:03)
[2017-10-22] MEDS: Lactobacillus Acidophilu (GG)* 1 CAP CAP PO SCH (10:03)
[2017-10-22] MEDS: Cholestyramine Resin* 4 GM POWDER PO SCH (10:03)
[2017-10-22] MEDS: Famotidine TAB* 20 MG PO SCH ×2 (10:03→21:17)
[2017-10-22] MEDS: Polyethylene Glycol 3350* 17 GM PACKET PO SCH ×2 (10:03→21:16)
[2017-10-22 10:13] LABS: EGFR Non-African American 75.1 (>60)
[2017-10-22] MEDS: FLUoxetine CAP* 20 MG PO SCH (10:55)
[2017-10-22] MEDS: Oxybutynin XL TAB* 5 MG PO SCH (10:56)
[2017-10-22] MEDS: Furosemide IV* 10 MG/ML 2 ML VIAL (20 MG) IV SCH (10:56)
[2017-10-22] MEDS: Ramipril CAP* 5 MG PO SCH (10:56)
[2017-10-22] MEDS ORDERED: Metoprolol Tartrate TAB* 25 MG PO ONE ×2 (11:09→13:28)
--- NOTE | 2017-10-22 11:12 | PN ---
Objective Active Medications: Acetaminophen (Tylenol Tab*) 650 mg PO Q6H PRN PRN Reason: FEVER Albuterol (Ventolin 2.5 Mg/3 Ml Neb.Diana*) 2.5 mg INH BID [facility] Last Admin: 10/22/17 07:42 Dose: 2.5 mg Aspirin (Aspirin Ec Low Dose*) 81 mg PO DAILY [facility] Last Admin: 10/22/17 10:03 Dose: 81 mg Atorvastatin Calcium (Lipitor*) 20 mg PO BEDTIME [facility] Last Admin: 10/21/17 20:58 Dose: 20 mg Cholestyramine Resin (Questran*) 4 gm PO DAILY [facility] Last Admin: 10/22/17 10:03 Dose: 4 gm Donepezil HCl (Aricept Tab*) 10 mg PO DAILY [facility] Last Admin: 10/22/17 10:03 Dose: 10 mg Famotidine (Pepcid Tab*) 20 mg PO BID [facility] Last Admin: 10/22/17 10:03 Dose: 20 mg Fluoxetine HCl (Prozac Cap*) 10 mg PO DAILY [facility] Guaifenesin (Mucinex*) 600 mg PO BID [facility] Last Admin: 10/22/17 10:03 Dose: 600 mg Heparin Sodium (Porcine) (Heparin Vial(*)) 5,000 units SUBCUT Q8HR [facility] Last Admin: 10/22/17 05:27 Dose: 5,000 units Ceftriaxone Sodium 1,000 mg/ (Sterile Water) 10 mls @ 40 mls/hr IVPB Q24H [facility] Last Admin: 10/21/17 14:05 Dose: 40 mls/hr Azithromycin 500 mg/ Sodium (Chloride) 250 mls @ 250 mls/hr IVPB Q24H [facility] Stop: 10/24/17 14:59 Last Admin: 10/21/17 16:11 Dose: 250 mls/hr Lactobacillus Rhamnosus (Culturelle*) 1 cap PO DAILY [facility] Last Admin: 10/22/17 10:03 Dose: 1 cap Magnesium Oxide (Magox 400 Tab*) 400 mg PO DAILY [facility] Last Admin: 10/22/17 10:03 Dose: 400 mg Memantine (Namenda Tab*) 5 mg PO BID [facility] Last Admin: 10/22/17 10:03 Dose: 5 mg Metoprolol Tartrate (Lopressor Tab*) 25 mg PO BID [facility] Metoprolol Tartrate (Lopressor Tab*) 25 mg PO ONCE ONE Stop: 10/22/17 11:10 Oxybutynin Chloride (Ditropan Xl Tab*) 10 mg PO DAILY [facility] Polyethylene Glycol/Electrolytes (Miralax*) 17 gm PO 0800,2100 [facility] Last Admin: 10/22/17 10:03 Dose: 17 gm Potassium Chloride (Klor Con Er Tab*) 20 meq PO DAILY [facility] Last Admin: 10/22/17 10:03 Dose: 20 meq Vital Signs - 8 hr 10/22/17 10/22/17 10/22/17 04:05 07:43 08:00 Temperature 98.3 F Pulse Rate 44 60 Respiratory 20 16 14 Rate Blood Pressure 130/53 (mmHg) O2 Sat by Pulse 94 98 Oximetry 10/22/17 10/22/17 08:18 09:21 Temperature 97.2 F 99.1 F Pulse Rate 110 30 Respiratory 15 14 Rate Blood Pressure 116/60 126/84 (mmHg) O2 Sat by Pulse 97 97 Oximetry Oxygen Devices in Use Now: Nasal Cannula Result Diagrams: 10/21/17 05:13 10/22/17 09:47 Additional Lab and Data: Lab Results 10/20/17 10/20/17 10/20/17 Range/Units 15:34 15:34 15:34 WBC 4.5 (3.5-10.8) 10^3/ul RBC 4.55 (4.0-5.4) 10^6/ul Hgb 13.1 (12.0-16.0) g/dl Hct 39 (35-47) % MCV 85 (80-97) fL MCH 29 (27-31) pg MCHC 34 (31-36) g/dl RDW 15 (10.5-15) % Plt Count 222 (150-450) 10^3/ul MPV 7 L (7.4-10.4) um3 Neut % (Auto) 66.7 (38-83) % Lymph % (Auto) 17.4 L (25-47) % [place] % (Auto) 14.4 H (0-7) % Eos % (Auto) 0.5 (0-6) % Baso % (Auto) 1.0 (0-2) % Absolute Neuts (auto) 3.0 (1.5-7.7) 10^3/ul Absolute Lymphs (auto) 0.8 L (1.0-4.8) 10^3/ul Absolute Monos (auto) 0.6 (0-0.8) 10^3/ul Absolute Eos (auto) 0 (0-0.6) 10^3/ul Absolute Basos (auto) 0 (0-0.2) 10^3/ul Absolute Nucleated RBC 0 10^3/ul Nucleated RBC % 0.1 Sodium 132 L (133-145) mmol/L Potassium 4.2 (3.5-5.0) mmol/L Chloride 100 L (101-111) mmol/L Carbon Dioxide 28 (22-32) mmol/L Anion Gap 4 (2-11) mmol/L BUN 7 (6-24) mg/dL Creatinine 0.81 (0.51-0.95) mg/dL Est GFR ( Amer) 85.6 (>60) Est GFR (Non-Af Amer) 66.6 (>60) BUN/Creatinine Ratio 8.6 (8-20) Glucose 101 H (70-100) mg/dL Lactic Acid 1.0 (0.5-2.0) mmol/L Uric Acid (2.3-6.6) mg/dL Calcium 8.9 (8.6-10.3) mg/dL Magnesium 1.7 L (1.9-2.7) mg/dL Total Bilirubin 0.70 (0.2-1.0) mg/dL AST 15 (13-39) U/L ALT 11 (7-52) U/L Alkaline Phosphatase 57 (34-104) U/L Ammonia (16-53) mol/L Total Creatine Kinase 34 (10-223) U/L Troponin I 0.06 H* (<0.04) ng/mL B-Natriuretic Peptide ( - 100) pg/mL Total Protein 5.5 L (6.4-8.9) g/dL Albumin 3.4 (3.2-5.2) g/dL Globulin 2.1 (2-4) g/dL Albumin/Globulin Ratio 1.6 (1-3) Procalcitonin (<0.6) ng/mL TSH 0.66 (0.34-5.60) mcIU/mL Urine Color Urine Appearance Urine pH (5-9) Ur Specific [place] (1.010-1.030) Urine Protein (Negative) Urine Ketones (Negative) Urine Blood (Negative) Urine Nitrate (Negative) Urine Bilirubin (Negative) Urine Urobilinogen (Negative) Ur Leukocyte Esterase (Negative) Urine WBC (Auto) (Absent) Urine RBC (Auto) (Absent) Urine Bacteria (Absent) Urine Glucose (Negative) 10/20/17 10/20/17 10/20/17 Range/Units 15:34 17:00 22:16 WBC (3.5-10.8) 10^3/ul RBC (4.0-5.4) 10^6/ul Hgb (12.0-16.0) g/dl Hct (35-47) % MCV (80-97) fL MCH (27-31) pg MCHC (31-36) g/dl RDW (10.5-15) % Plt Count (150-450) 10^3/ul MPV (7.4-10.4) um3 Neut % (Auto) (38-83) % Lymph % (Auto) (25-47) % [place] % (Auto) (0-7) % Eos % (Auto) (0-6) % Baso % (Auto) (0-2) % Absolute Neuts (auto) (1.5-7.7) 10^3/ul Absolute Lymphs (auto) (1.0-4.8) 10^3/ul Absolute Monos (auto) (0-0.8) 10^3/ul Absolute Eos (auto) (0-0.6) 10^3/ul Absolute Basos (auto) (0-0.2) 10^3/ul Absolute Nucleated RBC 10^3/ul Nucleated RBC % Sodium (133-145) mmol/L Potassium (3.5-5.0) mmol/L Chloride (101-111) mmol/L Carbon Dioxide (22-32) mmol/L Anion Gap (2-11) mmol/L BUN (6-24) mg/dL Creatinine (0.51-0.95) mg/dL Est GFR ( Amer) (>60) Est GFR (Non-Af Amer) (>60) BUN/Creatinine Ratio (8-20) Glucose (70-100) mg/dL Lactic Acid (0.5-2.0) mmol/L Uric Acid (2.3-6.6) mg/dL Calcium (8.6-10.3) mg/dL Magnesium (1.9-2.7) mg/dL Total Bilirubin (0.2-1.0) mg/dL AST (13-39) U/L ALT (7-52) U/L Alkaline Phosphatase (34-104) U/L Ammonia 21 (16-53) mol/L Total Creatine Kinase (10-223) U/L Troponin I 0.05 H* (<0.04) ng/mL B-Natriuretic Peptide ( - 100) pg/mL Total Protein (6.4-8.9) g/dL Albumin (3.2-5.2) g/dL Globulin (2-4) g/dL Albumin/Globulin Ratio (1-3) Procalcitonin (<0.6) ng/mL TSH (0.34-5.60) mcIU/mL Urine Color Yellow Urine Appearance Clear Urine pH 5.0 (5-9) Ur Specific [place] 1.017 (1.010-1.030) Urine Protein Negative (Negative) Urine Ketones Trace A (Negative) Urine Blood 1+ A (Negative) Urine Nitrate Negative (Negative) Urine Bilirubin Negative (Negative) Urine Urobilinogen Negative (Negative) Ur Leukocyte Esterase Negative (Negative) Urine WBC (Auto) Absent (Absent) Urine RBC (Auto) 3+(>10/hpf) A (Absent) Urine Bacteria Absent (Absent) Urine Glucose Negative (Negative) 10/21/17 10/21/17 10/21/17 Range/Units 00:16 05:13 05:13 WBC 4.0 (3.5-10.8) 10^3/ul RBC 4.58 (4.0-5.4) 10^6/ul Hgb 13.0 (12.0-16.0) g/dl Hct 39 (35-47) % MCV 86 (80-97) fL MCH 28 (27-31) pg MCHC 33 (31-36) g/dl RDW 15 (10.5-15) % Plt Count 184 (150-450) 10^3/ul MPV 7 L (7.4-10.4) um3 Neut % (Auto) 66.3 (38-83) % Lymph % (Auto) 18.8 L (25-47) % [place] % (Auto) 13.5 H (0-7) % Eos % (Auto) 0.3 (0-6) % Baso % (Auto) 1.1 (0-2) % Absolute Neuts (auto) 2.6 (1.5-7.7) 10^3/ul Absolute Lymphs (auto) 0.7 L (1.0-4.8) 10^3/ul Absolute Monos (auto) 0.5 (0-0.8) 10^3/ul Absolute Eos (auto) 0 (0-0.6) 10^3/ul Absolute Basos (auto) 0 (0-0.2) 10^3/ul Absolute Nucleated RBC 0 10^3/ul Nucleated RBC % 0.1 Sodium 132 L (133-145) mmol/L Potassium 3.9 (3.5-5.0) mmol/L Chloride 101 (101-111) mmol/L Carbon Dioxide 26 (22-32) mmol/L Anion Gap 5 (2-11) mmol/L BUN 7 (6-24) mg/dL Creatinine 0.72 (0.51-0.95) mg/dL Est GFR ( Amer) 98.1 (>60) Est GFR (Non-Af Amer) 76.3 (>60) BUN/Creatinine Ratio 9.7 (8-20) Glucose 99 (70-100) mg/dL Lactic Acid (0.5-2.0) mmol/L Uric Acid 3.3 (2.3-6.6) mg/dL Calcium 8.4 L (8.6-10.3) mg/dL Magnesium (1.9-2.7) mg/dL Total Bilirubin (0.2-1.0) mg/dL AST (13-39) U/L ALT (7-52) U/L Alkaline Phosphatase (34-104) U/L Ammonia (16-53) mol/L Total Creatine Kinase (10-223) U/L Troponin I 0.05 H* (<0.04) ng/mL B-Natriuretic Peptide ( - 100) pg/mL Total Protein (6.4-8.9) g/dL Albumin (3.2-5.2) g/dL Globulin (2-4) g/dL Albumin/Globulin Ratio (1-3) Procalcitonin (<0.6) ng/mL TSH (0.34-5.60) mcIU/mL Urine Color Urine Appearance Urine pH (5-9) Ur Specific [place] (1.010-1.030) Urine Protein (Negative) Urine Ketones (Negative) Urine Blood (Negative) Urine Nitrate (Negative) Urine Bilirubin (Negative) Urine Urobilinogen (Negative) Ur Leukocyte Esterase (Negative) Urine WBC (Auto) (Absent) Urine RBC (Auto) (Absent) Urine Bacteria (Absent) Urine Glucose (Negative) 10/21/17 10/21/17 Range/Units 05:13 05:13 WBC (3.5-10.8) 10^3/ul RBC (4.0-5.4) 10^6/ul Hgb (12.0-16.0) g/dl Hct (35-47) % MCV (80-97) fL MCH (27-31) pg MCHC (31-36) g/dl RDW (10.5-15) % Plt Count (150-450) 10^3/ul MPV (7.4-10.4) um3 Neut % (Auto) (38-83) % Lymph % (Auto) (25-47) % [place] % (Auto) (0-7) % Eos % (Auto) (0-6) % Baso % (Auto) (0-2) % Absolute Neuts (auto) (1.5-7.7) 10^3/ul Absolute Lymphs (auto) (1.0-4.8) 10^3/ul Absolute Monos (auto) (0-0.8) 10^3/ul Absolute Eos (auto) (0-0.6) 10^3/ul Absolute Basos (auto) (0-0.2) 10^3/ul Absolute Nucleated RBC 10^3/ul Nucleated RBC % Sodium (133-145) mmol/L Potassium (3.5-5.0) mmol/L Chloride (101-111) mmol/L Carbon Dioxide (22-32) mmol/L Anion Gap (2-11) mmol/L BUN (6-24) mg/dL Creatinine (0.51-0.95) mg/dL Est GFR ( Amer) (>60) Est GFR (Non-Af Amer) (>60) BUN/Creatinine Ratio (8-20) Glucose (70-100) mg/dL Lactic Acid (0.5-2.0) mmol/L Uric Acid (2.3-6.6) mg/dL Calcium (8.6-10.3) mg/dL Magnesium (1.9-2.7) mg/dL Total Bilirubin (0.2-1.0) mg/dL AST (13-39) U/L ALT (7-52) U/L Alkaline Phosphatase (34-104) U/L Ammonia (16-53) mol/L Total Creatine Kinase (10-223) U/L Troponin I (<0.04) ng/mL B-Natriuretic Peptide 1621 H ( - 100) pg/mL Total Protein (6.4-8.9) g/dL Albumin (3.2-5.2) g/dL Globulin (2-4) g/dL Albumin/Globulin Ratio (1-3) Procalcitonin < 0.1 (<0.6) ng/mL TSH (0.34-5.60) mcIU/mL Urine Color Urine Appearance Urine pH (5-9) Ur Specific [place] (1.010-1.030) Urine Protein (Negative) Urine Ketones (Negative) Urine Blood (Negative) Urine Nitrate (Negative) Urine Bilirubin (Negative) Urine Urobilinogen (Negative) Ur Leukocyte Esterase (Negative) Urine WBC (Auto) (Absent) Urine RBC (Auto) (Absent) Urine Bacteria (Absent) Urine Glucose (Negative) Microbiology and Other Data: Microbiology 10/21/17 18:50 Legionella Urinary Antigen - Final Urine Negative Legionella Antigen Streptococcus pneumoniae Ag Screen - Final Negative S. 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 Coughing, CXR w/ small b/l basilar infiltrate. Now febrile. BNP elevated. #CHF - BNP elevated to 1621 - ECHO 01/20/17 EF 45-50%, mod pHTN, mod MVR. Will repeat. - not on home diuretics. just saw Cardiology day of admission (they sent to ER) - gave lasix 40mg po this afternoon. strict io, daily weights. Likely 20IV BID. - troponin flat 0.05, 0.05. On aspirin 81mg daily. - ACEI (ramipril 10mg), BB (metoprolol 12.5mg BID. #Fever, b/l small basilar infiltrates on CXR, cough, - continue ceftriaxone - add azithromycin 500mg IV daily x 3 days - blood cultures - sputum cultures - MRSA nares - Strep and Legionella Urine Antigen - repeat CXR in AM #left knee effusion - large on MRI - initially reportedly tender in ED, not currently - now that spiking fevers will get ortho consult for consideration for arthrocenteis to rule out septic joint and possible provide symptomatic relief. however not currently erythematous or tender though now on antibiotics. #fall from bed ~2 weeks ago - CTH negative - PT #dementia - aricept, namenda #HTN - metoprolol 12.5mg BID - ramipril 10mg #ROOPA - CPAP qhs #overactive bladder - oxybutinin DVT PPx: start heparin 5000 TID PT: may benefit from short term rehab. diet: heart healthy CODE: DNR Status and Disposition: medicine inpatient.
--- NOTE | 2017-10-22 11:24 | PN ---
Subjective Date of Service: 10/22/17 Interval History: No c/o. She may not remember any problems she has had even recently. Objective Active Medications: Acetaminophen (Tylenol Tab*) 650 mg PO Q6H PRN PRN Reason: FEVER Albuterol (Ventolin 2.5 Mg/3 Ml Neb.Diana*) 2.5 mg INH BID [facility] Last Admin: 10/22/17 07:42 Dose: 2.5 mg Aspirin (Aspirin Ec Low Dose*) 81 mg PO DAILY [facility] Last Admin: 10/22/17 10:03 Dose: 81 mg Atorvastatin Calcium (Lipitor*) 20 mg PO BEDTIME [facility] Last Admin: 10/21/17 20:58 Dose: 20 mg Cholestyramine Resin (Questran*) 4 gm PO DAILY [facility] Last Admin: 10/22/17 10:03 Dose: 4 gm Donepezil HCl (Aricept Tab*) 10 mg PO DAILY [facility] Last Admin: 10/22/17 10:03 Dose: 10 mg Famotidine (Pepcid Tab*) 20 mg PO BID [facility] Last Admin: 10/22/17 10:03 Dose: 20 mg Fluoxetine HCl (Prozac Cap*) 10 mg PO DAILY [facility] Guaifenesin (Mucinex*) 600 mg PO BID [facility] Last Admin: 10/22/17 10:03 Dose: 600 mg Heparin Sodium (Porcine) (Heparin Vial(*)) 5,000 units SUBCUT Q8HR [facility] Last Admin: 10/22/17 05:27 Dose: 5,000 units Ceftriaxone Sodium 1,000 mg/ (Sterile Water) 10 mls @ 40 mls/hr IVPB Q24H [facility] Last Admin: 10/21/17 14:05 Dose: 40 mls/hr Azithromycin 500 mg/ Sodium (Chloride) 250 mls @ 250 mls/hr IVPB Q24H [facility] Stop: 10/24/17 14:59 Last Admin: 10/21/17 16:11 Dose: 250 mls/hr Lactobacillus Rhamnosus (Culturelle*) 1 cap PO DAILY [facility] Last Admin: 10/22/17 10:03 Dose: 1 cap Magnesium Oxide (Magox 400 Tab*) 400 mg PO DAILY [facility] Last Admin: 10/22/17 10:03 Dose: 400 mg Memantine (Namenda Tab*) 5 mg PO BID [facility] Last Admin: 10/22/17 10:03 Dose: 5 mg Metoprolol Tartrate (Lopressor Tab*) 25 mg PO BID [facility] Metoprolol Tartrate (Lopressor Tab*) 25 mg PO ONCE ONE Stop: 10/22/17 11:10 Oxybutynin Chloride (Ditropan Xl Tab*) 10 mg PO DAILY [facility] Polyethylene Glycol/Electrolytes (Miralax*) 17 gm PO 0800,2100 [facility] Last Admin: 10/22/17 10:03 Dose: 17 gm Potassium Chloride (Klor Con Er Tab*) 20 meq PO DAILY [facility] Last Admin: 10/22/17 10:03 Dose: 20 meq Vital Signs - 8 hr 10/22/17 10/22/17 10/22/17 04:05 07:43 08:00 Temperature 98.3 F Pulse Rate 44 60 Respiratory 20 16 14 Rate Blood Pressure 130/53 (mmHg) O2 Sat by Pulse 94 98 Oximetry 10/22/17 10/22/17 08:18 09:21 Temperature 97.2 F 99.1 F Pulse Rate 110 30 Respiratory 15 14 Rate Blood Pressure 116/60 126/84 (mmHg) O2 Sat by Pulse 97 97 Oximetry Oxygen Devices in Use Now: Nasal Cannula Appearance: Alert, sl up in bed. In good spirits. Looks comfortable. Eyes: No Scleral Icterus Neck: NL Appearance and Movements; NL JVP, No Thyroid Enlargement, Masses Respiratory: Symmetrical Chest Expansion and Respiratory Effort, Clear to Auscultation, Clear to Percussion Cardiovascular: NL Sounds; No Murmurs; No JVD, RRR, No Edema, - Extremities: No Edema, No Clubbing, Cyanosis, - - L knee sl swollen, not warm or tender or red. Small bandage in place. Neurological: NL Sensation - Diminished hearing. She can state her full name. She gave her age as 88. She does not Result Diagrams: 10/21/17 05:13 10/22/17 09:47 Additional Lab and Data: Lab Results 10/20/17 10/20/17 10/20/17 Range/Units 15:34 15:34 15:34 WBC 4.5 (3.5-10.8) 10^3/ul RBC 4.55 (4.0-5.4) 10^6/ul Hgb 13.1 (12.0-16.0) g/dl Hct 39 (35-47) % MCV 85 (80-97) fL MCH 29 (27-31) pg MCHC 34 (31-36) g/dl RDW 15 (10.5-15) % Plt Count 222 (150-450) 10^3/ul MPV 7 L (7.4-10.4) um3 Neut % (Auto) 66.7 (38-83) % Lymph % (Auto) 17.4 L (25-47) % Gilmer % (Auto) 14.4 H (0-7) % Eos % (Auto) 0.5 (0-6) % Baso % (Auto) 1.0 (0-2) % Absolute Neuts (auto) 3.0 (1.5-7.7) 10^3/ul Absolute Lymphs (auto) 0.8 L (1.0-4.8) 10^3/ul Absolute Monos (auto) 0.6 (0-0.8) 10^3/ul Absolute Eos (auto) 0 (0-0.6) 10^3/ul Absolute Basos (auto) 0 (0-0.2) 10^3/ul Absolute Nucleated RBC 0 10^3/ul Nucleated RBC % 0.1 Sodium 132 L (133-145) mmol/L Potassium 4.2 (3.5-5.0) mmol/L Chloride 100 L (101-111) mmol/L Carbon Dioxide 28 (22-32) mmol/L Anion Gap 4 (2-11) mmol/L BUN 7 (6-24) mg/dL Creatinine 0.81 (0.51-0.95) mg/dL Est GFR ( Amer) 85.6 (>60) Est GFR (Non-Af Amer) 66.6 (>60) BUN/Creatinine Ratio 8.6 (8-20) Glucose 101 H (70-100) mg/dL Lactic Acid 1.0 (0.5-2.0) mmol/L Uric Acid (2.3-6.6) mg/dL Calcium 8.9 (8.6-10.3) mg/dL Magnesium 1.7 L (1.9-2.7) mg/dL Total Bilirubin 0.70 (0.2-1.0) mg/dL AST 15 (13-39) U/L ALT 11 (7-52) U/L Alkaline Phosphatase 57 (34-104) U/L Ammonia (16-53) mol/L Total Creatine Kinase 34 (10-223) U/L Troponin I 0.06 H* (<0.04) ng/mL B-Natriuretic Peptide ( - 100) pg/mL Total Protein 5.5 L (6.4-8.9) g/dL Albumin 3.4 (3.2-5.2) g/dL Globulin 2.1 (2-4) g/dL Albumin/Globulin Ratio 1.6 (1-3) Procalcitonin (<0.6) ng/mL TSH 0.66 (0.34-5.60) mcIU/mL Urine Color Urine Appearance Urine pH (5-9) Ur Specific Lincoln (1.010-1.030) Urine Protein (Negative) Urine Ketones (Negative) Urine Blood (Negative) Urine Nitrate (Negative) Urine Bilirubin (Negative) Urine Urobilinogen (Negative) Ur Leukocyte Esterase (Negative) Urine WBC (Auto) (Absent) Urine RBC (Auto) (Absent) Urine Bacteria (Absent) Urine Glucose (Negative) 10/20/17 10/20/17 10/20/17 Range/Units 15:34 17:00 22:16 WBC (3.5-10.8) 10^3/ul RBC (4.0-5.4) 10^6/ul Hgb (12.0-16.0) g/dl Hct (35-47) % MCV (80-97) fL MCH (27-31) pg MCHC (31-36) g/dl RDW (10.5-15) % Plt Count (150-450) 10^3/ul MPV (7.4-10.4) um3 Neut % (Auto) (38-83) % Lymph % (Auto) (25-47) % Gilmer % (Auto) (0-7) % Eos % (Auto) (0-6) % Baso % (Auto) (0-2) % Absolute Neuts (auto) (1.5-7.7) 10^3/ul Absolute Lymphs (auto) (1.0-4.8) 10^3/ul Absolute Monos (auto) (0-0.8) 10^3/ul Absolute Eos (auto) (0-0.6) 10^3/ul Absolute Basos (auto) (0-0.2) 10^3/ul Absolute Nucleated RBC 10^3/ul Nucleated RBC % Sodium (133-145) mmol/L Potassium (3.5-5.0) mmol/L Chloride (101-111) mmol/L Carbon Dioxide (22-32) mmol/L Anion Gap (2-11) mmol/L BUN (6-24) mg/dL Creatinine (0.51-0.95) mg/dL Est GFR ( Amer) (>60) Est GFR (Non-Af Amer) (>60) BUN/Creatinine Ratio (8-20) Glucose (70-100) mg/dL Lactic Acid (0.5-2.0) mmol/L Uric Acid (2.3-6.6) mg/dL Calcium (8.6-10.3) mg/dL Magnesium (1.9-2.7) mg/dL Total Bilirubin (0.2-1.0) mg/dL AST (13-39) U/L ALT (7-52) U/L Alkaline Phosphatase (34-104) U/L Ammonia 21 (16-53) mol/L Total Creatine Kinase (10-223) U/L Troponin I 0.05 H* (<0.04) ng/mL B-Natriuretic Peptide ( - 100) pg/mL Total Protein (6.4-8.9) g/dL Albumin (3.2-5.2) g/dL Globulin (2-4) g/dL Albumin/Globulin Ratio (1-3) Procalcitonin (<0.6) ng/mL TSH (0.34-5.60) mcIU/mL Urine Color Yellow Urine Appearance Clear Urine pH 5.0 (5-9) Ur Specific Lincoln 1.017 (1.010-1.030) Urine Protein Negative (Negative) Urine Ketones Trace A (Negative) Urine Blood 1+ A (Negative) Urine Nitrate Negative (Negative) Urine Bilirubin Negative (Negative) Urine Urobilinogen Negative (Negative) Ur Leukocyte Esterase Negative (Negative) Urine WBC (Auto) Absent (Absent) Urine RBC (Auto) 3+(>10/hpf) A (Absent) Urine Bacteria Absent (Absent) Urine Glucose Negative (Negative) 10/21/17 10/21/17 10/21/17 Range/Units 00:16 05:13 05:13 WBC 4.0 (3.5-10.8) 10^3/ul RBC 4.58 (4.0-5.4) 10^6/ul Hgb 13.0 (12.0-16.0) g/dl Hct 39 (35-47) % MCV 86 (80-97) fL MCH 28 (27-31) pg MCHC 33 (31-36) g/dl RDW 15 (10.5-15) % Plt Count 184 (150-450) 10^3/ul MPV 7 L (7.4-10.4) um3 Neut % (Auto) 66.3 (38-83) % Lymph % (Auto) 18.8 L (25-47) % Gilmer % (Auto) 13.5 H (0-7) % Eos % (Auto) 0.3 (0-6) % Baso % (Auto) 1.1 (0-2) % Absolute Neuts (auto) 2.6 (1.5-7.7) 10^3/ul Absolute Lymphs (auto) 0.7 L (1.0-4.8) 10^3/ul Absolute Monos (auto) 0.5 (0-0.8) 10^3/ul Absolute Eos (auto) 0 (0-0.6) 10^3/ul Absolute Basos (auto) 0 (0-0.2) 10^3/ul Absolute Nucleated RBC 0 10^3/ul Nucleated RBC % 0.1 Sodium 132 L (133-145) mmol/L Potassium 3.9 (3.5-5.0) mmol/L Chloride 101 (101-111) mmol/L Carbon Dioxide 26 (22-32) mmol/L Anion Gap 5 (2-11) mmol/L BUN 7 (6-24) mg/dL Creatinine 0.72 (0.51-0.95) mg/dL Est GFR ( Amer) 98.1 (>60) Est GFR (Non-Af Amer) 76.3 (>60) BUN/Creatinine Ratio 9.7 (8-20) Glucose 99 (70-100) mg/dL Lactic Acid (0.5-2.0) mmol/L Uric Acid 3.3 (2.3-6.6) mg/dL Calcium 8.4 L (8.6-10.3) mg/dL Magnesium (1.9-2.7) mg/dL Total Bilirubin (0.2-1.0) mg/dL AST (13-39) U/L ALT (7-52) U/L Alkaline Phosphatase (34-104) U/L Ammonia (16-53) mol/L Total Creatine Kinase (10-223) U/L Troponin I 0.05 H* (<0.04) ng/mL B-Natriuretic Peptide ( - 100) pg/mL Total Protein (6.4-8.9) g/dL Albumin (3.2-5.2) g/dL Globulin (2-4) g/dL Albumin/Globulin Ratio (1-3) Procalcitonin (<0.6) ng/mL TSH (0.34-5.60) mcIU/mL Urine Color Urine Appearance Urine pH (5-9) Ur Specific Lincoln (1.010-1.030) Urine Protein (Negative) Urine Ketones (Negative) Urine Blood (Negative) Urine Nitrate (Negative) Urine Bilirubin (Negative) Urine Urobilinogen (Negative) Ur Leukocyte Esterase (Negative) Urine WBC (Auto) (Absent) Urine RBC (Auto) (Absent) Urine Bacteria (Absent) Urine Glucose (Negative) 10/21/17 10/21/17 Range/Units 05:13 05:13 WBC (3.5-10.8) 10^3/ul RBC (4.0-5.4) 10^6/ul Hgb (12.0-16.0) g/dl Hct (35-47) % MCV (80-97) fL MCH (27-31) pg MCHC (31-36) g/dl RDW (10.5-15) % Plt Count (150-450) 10^3/ul MPV (7.4-10.4) um3 Neut % (Auto) (38-83) % Lymph % (Auto) (25-47) % Gilmer % (Auto) (0-7) % Eos % (Auto) (0-6) % Baso % (Auto) (0-2) % Absolute Neuts (auto) (1.5-7.7) 10^3/ul Absolute Lymphs (auto) (1.0-4.8) 10^3/ul Absolute Monos (auto) (0-0.8) 10^3/ul Absolute Eos (auto) (0-0.6) 10^3/ul Absolute Basos (auto) (0-0.2) 10^3/ul Absolute Nucleated RBC 10^3/ul Nucleated RBC % Sodium (133-145) mmol/L Potassium (3.5-5.0) mmol/L Chloride (101-111) mmol/L Carbon Dioxide (22-32) mmol/L Anion Gap (2-11) mmol/L BUN (6-24) mg/dL Creatinine (0.51-0.95) mg/dL Est GFR ( Amer) (>60) Est GFR (Non-Af Amer) (>60) BUN/Creatinine Ratio (8-20) Glucose (70-100) mg/dL Lactic Acid (0.5-2.0) mmol/L Uric Acid (2.3-6.6) mg/dL Calcium (8.6-10.3) mg/dL Magnesium (1.9-2.7) mg/dL Total Bilirubin (0.2-1.0) mg/dL AST (13-39) U/L ALT (7-52) U/L Alkaline Phosphatase (34-104) U/L Ammonia (16-53) mol/L Total Creatine Kinase (10-223) U/L Troponin I (<0.04) ng/mL B-Natriuretic Peptide 1621 H ( - 100) pg/mL Total Protein (6.4-8.9) g/dL Albumin (3.2-5.2) g/dL Globulin (2-4) g/dL Albumin/Globulin Ratio (1-3) Procalcitonin < 0.1 (<0.6) ng/mL TSH (0.34-5.60) mcIU/mL Urine Color Urine Appearance Urine pH (5-9) Ur Specific Lincoln (1.010-1.030) Urine Protein (Negative) Urine Ketones (Negative) Urine Blood (Negative) Urine Nitrate (Negative) Urine Bilirubin (Negative) Urine Urobilinogen (Negative) Ur Leukocyte Esterase (Negative) Urine WBC (Auto) (Absent) Urine RBC (Auto) (Absent) Urine Bacteria (Absent) Urine Glucose (Negative) Microbiology and Other Data: Microbiology 10/21/17 18:50 Legionella Urinary Antigen - Final Urine Negative Legionella Antigen Streptococcus pneumoniae Ag Screen - Final Negative S. 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 Coughing, CXR w/ small b/l basilar infiltrate. Now febrile. BNP elevated. #CHF - BNP elevated to 1621 - ECHO 01/20/17 EF 45-50%, mod pHTN, mod MVR. Will repeat. - not on home diuretics. just saw Cardiology day of admission (they sent to ER) - gave lasix 40mg po this afternoon. strict io, daily weights. Likely 20IV BID. - troponin flat 0.05, 0.05. On aspirin 81mg daily. - ACEI (ramipril 10mg), BB (metoprolol 12.5mg BID. #Fever, b/l small basilar infiltrates on CXR, cough, - continue ceftriaxone - add azithromycin 500mg IV daily x 3 days - blood cultures - sputum cultures - MRSA nares - Strep and Legionella Urine Antigen - repeat CXR in AM #left knee effusion - large on MRI - initially reportedly tender in ED, not currently - now that spiking fevers will get ortho consult for consideration for arthrocenteis to rule out septic joint and possible provide symptomatic relief. however not currently erythematous or tender though now on antibiotics. #fall from bed ~2 weeks ago - CTH negative - PT #dementia - aricept, namenda #HTN - metoprolol 12.5mg BID - ramipril 10mg #ROOPA - CPAP qhs #overactive bladder - oxybutinin DVT PPx: start heparin 5000 TID PT: may benefit from short term rehab. diet: heart healthy CODE: DNR - Patient Problems (1) Dementia Current Visit: Yes Status: Acute Code(s): F03.90 - UNSPECIFIED DEMENTIA WITHOUT BEHAVIORAL DISTURBANCE SNOMED Code(s): 81072335 Comment: I discussed prognosis and management with her niece and HCP Page. She wants comfort care measures. I have decreased doses of fluoxetine and oxybutynin. Swallow eval requested. (2) Pneumonia Current Visit: Yes Status: Acute Code(s): J18.9 - PNEUMONIA, UNSPECIFIED ORGANISM SNOMED Code(s): 875880429 Comment: Diagnosis uncertain with nl WBC, nl procacitonin. Swallow eval requested. Conntinue IV antibitics for now. (3) Atrial fibrillation Current Visit: Yes Status: Acute Code(s): I48.91 - UNSPECIFIED ATRIAL FIBRILLATION SNOMED Code(s): 36542493 Comment: No anticoagulation beyond ASA due to advanced dementia. Niece agrees. Increase metoprolol dose. (4) Hyponatremia Current Visit: Yes Status: Acute Code(s): E87.1 - HYPO-OSMOLALITY AND HYPONATREMIA SNOMED Code(s): 85454397 Comment: Mild. Reducing fluxetine dose should help. (5) HTN (hypertension) Current Visit: No Status: Acute Code(s): I10 - ESSENTIAL (PRIMARY) HYPERTENSION SNOMED Code(s): 53822910 Comment: Ramipril stopped as metoprolol is increased. Status and Disposition: medicine inpatient.
[2017-10-22] MEDS: cefTRIAXone 1000 MG SYRINGE IVPB Q24H IVPB SCH ×2 (14:02)
[2017-10-22] MEDS ORDERED: Perflutren Lipid Microsphere* 3 ML VIAL ONE (14:31)
[2017-10-22] MEDS: Azithromycin IV(*) 500 MG in NS 0.9% 250 ML* 250 ML IVPB SCH (15:39)
--- NOTE | 2017-10-22 17:00 | ECHO ---
Patient: STANTON LAWTON [facility] Rec#: [id number] : 1930 Date: 10/22/2017 Age: 87y Height: 175.26 cm / 69.0 in Weight: 81.65 kg / 180.0 lbs Sex: F BSA: 1.97 Room#: 437 Admit Date#: 10/21/2017 Type: Inpatient Referring: Vivek Hudson Reading: Rolo Ulloa DO Reading: Rolo Ulloa DO Assistant Analyst: Alejandra Emerson RN RDCS CC: ULISES OVIEDO NP CC: Duke Salinas MD Transthoracic Echocardiogram Indication: CHF BP: 116/51 HR: 72 Rhythm: NSR with PVCs Findings History: CAD, CHF, HTN, ROOPA, former smoker, dementia, breast cancer, uterine cancer Technical Comments: The study is technically limited due to poor apical windows. The study is technically limited due to the patient's smoking history. The patient went into rapid A. fib near the end of the exam. Imaging with Definity was performed after the patient's heart rate was under better control. Left Ventricle: The left ventricular chamber size is normal. Mild concentric left ventricular hypertrophy is observed. There is global hypokinesis of the left ventricle with minor regional variation. There is severely decreased left ventricular systolic function. The estimated ejection fraction is 25-30%. The patient was unable to perform a Valsalva maneuver.Unable to estimate diastolic function due to mitral valve disease. Advanced diastolic dysfunction suspected. Left Atrium: The left atrium is severely dilated.with bowing of interatrial septum from left to right suggestive of elevated left atrial pressure. Right Ventricle: The right ventricular cavity size is normal. The right ventricular global systolic function is low normal. Right Atrium: The right atrium is mildly dilated. Aortic Valve: The aortic valve is trileaflet. The aortic valve leaflets are mildly thickened. There is a trace of aortic regurgitation. There is mild aortic stenosis. Mitral Valve: There is mitral annular calcification.mild-moderate posterior The mitral valve leaflets are mildly thickened. There is moderate mitral regurgitation. There is no evidence of mitral stenosis. Tricuspid Valve: The tricuspid valve leaflets are normal. There is trace to mild tricuspid regurgitation. Unable to estimate the right ventricular systolic pressure. There is no tricuspid stenosis. Pulmonic Valve: The pulmonic valve structure is not well visualized. There is mild pulmonic regurgitation. There is no pulmonic stenosis. Pericardium: There is no significant pericardial effusion. A left pleural effusion is present. Aorta: The ascending aorta is not well visualized. There is no dilatation of the aortic arch. There is no dilation of the aortic root. Pulmonary Artery: The main pulmonary artery is not well visualized. Venous: The inferior vena cava appears normal in size. There is a greater than 50% respiratory change in the inferior vena cava dimension. Contrast: Definity was used to optimize study. A total of 4 ml of diluted Definity was given IV. Conclusions The left ventricular chamber size is normal. Mild concentric left ventricular hypertrophy is observed. There is global hypokinesis of the left ventricle with minor regional variation. There is severely decreased left ventricular systolic function. The estimated ejection fraction is 25-30% best appreciated on definity imaging enhancement images The left atrium is severely dilated.with bowing of interatrial septum from left to right suggestive of elevated left atrial pressure. The right ventricular cavity size is normal. The right ventricular global systolic function is low normal. There is moderate mitral regurgitation that appears secondary/functional Unable to estimate the right ventricular systolic pressure. There is mild aortic stenosis. Compared to prior study from 01/2017, most significant changes is that LVEF is now severely reduced (was mildly reduced previously). Measurements Name Value Normal Range RVDdMajor (2D) 3.4 cm (2.2 - 4.4) RAd ISD 4CH 5.2 cm (3.4 - 4.9) RA (A4C)W 3.8 cm (2.9 - 4.6) IVSd (2D) 1.29 cm (0.6 - 1) LVPWd (2D) 1.1 cm (0.6 - 1) LVIDd (2D) 4.77 cm (3.6 - 5.4) LVIDs (2D) 3.74 cm - LV FS (2D) 21.58 % (25 - 45) EF Teichholz (2D) 43.68 % - Aortic Annulus 2 cm (1.4 - 2.6) Ao root diameter (2D) 1.97 cm (2.1 - 3.5) Aortic arch 2.55 cm (1.8 - 3.4) LA dimension (AP) 2D 5.1 cm (2.3 - 3.8) LAd ISD 4CH 6.3 cm (2.9 - 5.3) LA ISD 4CH W 5.9 cm (2.5 - 4.5) Name Value Normal Range LA ESV SP 4CH (A/L) 139.27 ml - LA ESV SP 2CH (A/L) 92.72 ml - LA ESV BP (A/L) 123.82 ml - LA ESV BP (A/L) index 62.5 ml/m2 - LA ESV SP 4CH (MOD) 136.45 ml - LA ESV SP 2CH (MOD) 90.08 ml - Name Value Normal Range MV E-wave Vmax 0.85 m/sec - MV deceleration time 141.08 msec - MV A-wave Vmax 0.44 m/sec - MV E:A ratio 1.92 ratio - LV septal e' Vmax 0.04 m/sec - LV lateral e' Vmax 0.11 m/sec - LV E:e' septal ratio 21.3 ratio - LV E:e' lateral ratio 7.7 ratio - Name Value Normal Range AV Vmax 1.82 m/sec - AV VTI 41.32 cm - AV peak gradient 13.33 mmHg - AV mean gradient 7.49 mmHg - LVOT diameter 2 cm - LVOT Vmax 1.14 m/sec - LVOT VTI 23.74 cm - LVOT peak gradient 5.21 mmHg - LVOT mean gradient 3.09 mmHg - DOI (VTI) 0.54 ratio - DOI (Vmax) 0.6 ratio - SV LVOT 71 ml - CO LVOT 5.1 l/min - Cardiac index 2.6 l/min/m2 - EDUARDO (continuity Vmax) 1.9 cm2 - EDUARDO (continuity VTI) 1.7 cm2 - ANTONIO Vmax 0.46 m/sec - Name Value Normal Range MR Vmax 4.94 m/sec - MR VTI 170.46 cm - MR volume (PISA) 42.66 ml - MR flow (PISA) 123.76 ml/sec - MR ERO 0.25 cm2 - MR PISA radius 0.7 cm - MR alias Vmax 38 cm/sec - Name Value Normal Range IVC diameter 1.73 cm - Name Value Normal Range PV Vmax 0.65 m/sec - PV peak gradient 1.71 mmHg -
[2017-10-22] MEDS ORDERED: Metoprolol Tartrate TAB* 25 MG PO SCH (21:00)
[2017-10-22] MEDS: Atorvastatin* 20 MG TAB PO SCH (21:18)
[2017-10-22] MEDS: Metoprolol Tartrate TAB* 50 mg PO SCH (21:18)
--- NOTE | 2017-10-22 23:38 | OP ---
OPERATIVE REPORT: DATE OF OPERATION: 10/22/17 DATE OF : [birth year] ATTENDING SURGEON: Anay Melchor MD ANESTHESIA: Local pain ease spray applied to the site of the injection for local anesthesia. PRE-OP DIAGNOSIS: Severe end-stage degenerative osteoarthritis of the left knee with pain and effusi on. POST-OP DIAGNOSIS: Severe end-stage degenerative osteoarthritis of the left knee with pain and effus ion. OPERATIVE PROCEDURE: Left knee intra-articular injection. INJECTION MATERIAL: 80 mg Depo-Medrol and 6 cc of 0.5% Marcaine. ESTIMATED BLOOD LOSS: Less than 5 cc. COMPLICATIONS: None. BRIEF HISTORY/INDICATIONS: Ms. Reed is an 87-year-old female with chronic left knee pain. She wa s admitted for altered mental status and inability to ambulate due to left knee pain. I was consulte d for orthopedic care. She has severe bone- on-bone arthritis with a large effusion and synovitis on MRI. I offered the patient and her healthcare proxy an intra-articular steroid injection and they a ccepted this. They signed a consent form for me last evening on 10/21/17. We agreed to wait until t his morning, so I could obtain the topical anesthetic spray before the injection for pain control. A bedside time-out was made to correctly identify the patient, side, and site. DESCRIPTION OF PROCEDU RE: Under sterile conditions, 80 mg Depo-Medrol and 6 cc of 0.25% Marcaine were injected into the le ft knee joint. The patient tolerated the procedure well and had no complications. This site was jose alberto aned with alcohol and dressed with a Band-Aid. [id number]/[facility] #: [id number]
[2017-10-23] MEDS: Heparin VIAL(*) 5000 UNITS/ML VIAL (FIVE THOUSAND) SUBCUT SCH ×3 (05:16→20:29)
[2017-10-23 06:34] LABS: EGFR Non-African American 73.9 (>60)
[2017-10-23] MEDS: Polyethylene Glycol 3350* 17 GM PACKET PO SCH (06:50)
[2017-10-23] MEDS: Albuterol 2.5 MG/3 ML NEB.SOL* (0.083%) INH SCH ×2 (07:31→19:46)
[2017-10-23] MEDS: Lactobacillus Acidophilu (GG)* 1 CAP CAP PO SCH (09:18)
[2017-10-23] MEDS: Potassium Chlor TAB* 20 MEQ TAB.ER PO SCH (09:19)
[2017-10-23] MEDS: Donepezil TAB* 5 MG PO SCH (09:19)
[2017-10-23] MEDS: Aspirin EC Low Dose* 81 MG TAB.EC PO SCH (09:19)
[2017-10-23] MEDS: Metoprolol Tartrate TAB* 50 mg PO SCH ×2 (09:19→20:22)
[2017-10-23] MEDS: guaiFENesin ER TAB 600 MG PO SCH ×2 (09:19→20:29)
[2017-10-23] MEDS: Magnesium Oxide TAB* 400 MG PO SCH (09:19)
[2017-10-23] MEDS: Famotidine TAB* 20 MG PO SCH ×2 (09:19→20:29)
[2017-10-23] MEDS: Memantine TAB* 5 MG PO SCH ×2 (09:20→20:29)
--- NOTE | 2017-10-23 09:25 | PN ---
Progress Note - Progress Note Date of Service: 10/23/17 SOAP: Subjective: Pt. in bed, nad, reports no left knee pain. Objective: LLE - knee with mod effusion, min ttp. 20-100 flexion, no erythema or warmth. distally nvi. Vital Signs: Temp Pulse Resp BP Pulse Ox 97.4 F 58 24 133/54 100 10/23/17 07:42 10/23/17 07:42 10/23/17 07:42 10/23/17 07:42 10/23/17 07:42 Laboratory Results - last 24 hr 10/22/17 10/23/17 10/23/17 09:47 06:06 06:06 Sodium 132 L 128 L Potassium 3.2 L 3.7 Chloride 97 L 97 L Carbon Dioxide 28 26 Anion Gap 7 5 BUN 9 12 Creatinine 0.73 0.74 Est GFR ( Amer) 96.5 95.0 Est GFR (Non-Af Amer) 75.1 73.9 BUN/Creatinine Ratio 12.3 16.2 Glucose 101 H 111 H Calcium 8.4 L 8.6 Magnesium 1.6 L B-Natriuretic Peptide 1594 H Assessment: 87 yo F with admission for altered mental status and l knee pain. Plan: L knee effusion secondary to severe bone on bone OA - very low suspicion for infection 10/22 injection for L knee - should have some pain relief by tomorrow with WB Baseline minimal ambulation but recommend work with PT and RW f/u with ortho as outpt.
[2017-10-23] MEDS: FLUoxetine CAP* 10 MG PO SCH (09:33)
--- NOTE | 2017-10-23 10:02 | PN ---
Progress Note - Progress Note Date of Service: 10/23/17 Note: Time spent on discharge 50 minutes.
--- NOTE | 2017-10-23 10:32 | PN ---
Subjective Date of Service: 10/23/17 Interval History: No c/o. Objective Active Medications: Acetaminophen (Tylenol Tab*) 650 mg PO Q6H PRN PRN Reason: FEVER Last Admin: 10/23/17 09:18 Dose: 650 mg Albuterol (Ventolin 2.5 Mg/3 Ml Neb.Diana*) 2.5 mg INH BID [facility] Last Admin: 10/23/17 07:31 Dose: 2.5 mg Aspirin (Aspirin Ec Low Dose*) 81 mg PO DAILY [facility] Last Admin: 10/23/17 09:19 Dose: 81 mg Atorvastatin Calcium (Lipitor*) 20 mg PO BEDTIME [facility] Last Admin: 10/22/17 21:18 Dose: 20 mg Azithromycin (Zithromax Tab*) 500 mg PO ONCE ONE Stop: 10/23/17 21:01 Cefuroxime Axetil (Ceftin Tab(*)) 500 mg PO BID [facility] Donepezil HCl (Aricept Tab*) 10 mg PO DAILY [facility] Last Admin: 10/23/17 09:19 Dose: 10 mg Famotidine (Pepcid Tab*) 20 mg PO BID [facility] Last Admin: 10/23/17 09:19 Dose: 20 mg Fluoxetine HCl (Prozac Cap*) 10 mg PO DAILY [facility] Last Admin: 10/23/17 09:33 Dose: 10 mg Guaifenesin (Mucinex*) 600 mg PO BID [facility] Last Admin: 10/23/17 09:19 Dose: 600 mg Heparin Sodium (Porcine) (Heparin Vial(*)) 5,000 units SUBCUT Q8HR [facility] Last Admin: 10/23/17 05:16 Dose: 5,000 units Lactobacillus Rhamnosus (Culturelle*) 1 cap PO DAILY [facility] Last Admin: 10/23/17 09:18 Dose: 1 cap Magnesium Oxide (Magox 400 Tab*) 400 mg PO DAILY [facility] Last Admin: 10/23/17 09:19 Dose: 400 mg Memantine (Namenda Tab*) 5 mg PO BID [facility] Last Admin: 10/23/17 09:20 Dose: 5 mg Metoprolol Tartrate (Lopressor Tab*) 50 mg PO BID [facility] Last Admin: 10/23/17 09:19 Dose: 50 mg Polyethylene Glycol/Electrolytes (Miralax*) 17 gm PO 0800,2100 [facility] Last Admin: 10/23/17 06:50 Dose: Not Given Potassium Chloride (Klor Con Er Tab*) 20 meq PO DAILY [facility] Last Admin: 10/23/17 09:19 Dose: 20 meq Vital Signs - 8 hr 10/23/17 10/23/17 10/23/17 03:53 07:33 07:42 Temperature 98.6 F 97.4 F Pulse Rate 50 53 58 Respiratory 24 15 24 Rate Blood Pressure 128/65 133/54 (mmHg) O2 Sat by Pulse 100 98 100 Oximetry 10/23/17 07:45 Temperature Pulse Rate Respiratory 20 Rate Blood Pressure (mmHg) O2 Sat by Pulse Oximetry Oxygen Devices in Use Now: None Appearance: Alert, partly up in bed. In good spirits. Looks comfortable. Eyes: No Scleral Icterus Respiratory: Symmetrical Chest Expansion and Respiratory Effort, Clear to Auscultation, Clear to Percussion Cardiovascular: NL Sounds; No Murmurs; No JVD, RRR, No Edema, - Extremities: No Edema, No Clubbing, Cyanosis, - Skin: No Rash or Ulcers, No Nodules or Sclerosis Neurological: NL Sensation - Poor memory, can't remember having breakfast less than an hour ago. No tremor. Result Diagrams: 10/21/17 05:13 10/23/17 06:06 Additional Lab and Data: Lab Results 10/20/17 10/20/17 10/20/17 Range/Units 15:34 15:34 15:34 WBC 4.5 (3.5-10.8) 10^3/ul RBC 4.55 (4.0-5.4) 10^6/ul Hgb 13.1 (12.0-16.0) g/dl Hct 39 (35-47) % MCV 85 (80-97) fL MCH 29 (27-31) pg MCHC 34 (31-36) g/dl RDW 15 (10.5-15) % Plt Count 222 (150-450) 10^3/ul MPV 7 L (7.4-10.4) um3 Neut % (Auto) 66.7 (38-83) % Lymph % (Auto) 17.4 L (25-47) % Kay % (Auto) 14.4 H (0-7) % Eos % (Auto) 0.5 (0-6) % Baso % (Auto) 1.0 (0-2) % Absolute Neuts (auto) 3.0 (1.5-7.7) 10^3/ul Absolute Lymphs (auto) 0.8 L (1.0-4.8) 10^3/ul Absolute Monos (auto) 0.6 (0-0.8) 10^3/ul Absolute Eos (auto) 0 (0-0.6) 10^3/ul Absolute Basos (auto) 0 (0-0.2) 10^3/ul Absolute Nucleated RBC 0 10^3/ul Nucleated RBC % 0.1 Sodium 132 L (133-145) mmol/L Potassium 4.2 (3.5-5.0) mmol/L Chloride 100 L (101-111) mmol/L Carbon Dioxide 28 (22-32) mmol/L Anion Gap 4 (2-11) mmol/L BUN 7 (6-24) mg/dL Creatinine 0.81 (0.51-0.95) mg/dL Est GFR ( Amer) 85.6 (>60) Est GFR (Non-Af Amer) 66.6 (>60) BUN/Creatinine Ratio 8.6 (8-20) Glucose 101 H (70-100) mg/dL Lactic Acid 1.0 (0.5-2.0) mmol/L Uric Acid (2.3-6.6) mg/dL Calcium 8.9 (8.6-10.3) mg/dL Magnesium 1.7 L (1.9-2.7) mg/dL Total Bilirubin 0.70 (0.2-1.0) mg/dL AST 15 (13-39) U/L ALT 11 (7-52) U/L Alkaline Phosphatase 57 (34-104) U/L Ammonia (16-53) mol/L Total Creatine Kinase 34 (10-223) U/L Troponin I 0.06 H* (<0.04) ng/mL B-Natriuretic Peptide ( - 100) pg/mL Total Protein 5.5 L (6.4-8.9) g/dL Albumin 3.4 (3.2-5.2) g/dL Globulin 2.1 (2-4) g/dL Albumin/Globulin Ratio 1.6 (1-3) Procalcitonin (<0.6) ng/mL TSH 0.66 (0.34-5.60) mcIU/mL Urine Color Urine Appearance Urine pH (5-9) Ur Specific [place] (1.010-1.030) Urine Protein (Negative) Urine Ketones (Negative) Urine Blood (Negative) Urine Nitrate (Negative) Urine Bilirubin (Negative) Urine Urobilinogen (Negative) Ur Leukocyte Esterase (Negative) Urine WBC (Auto) (Absent) Urine RBC (Auto) (Absent) Urine Bacteria (Absent) Urine Glucose (Negative) 10/20/17 10/20/17 10/20/17 Range/Units 15:34 17:00 22:16 WBC (3.5-10.8) 10^3/ul RBC (4.0-5.4) 10^6/ul Hgb (12.0-16.0) g/dl Hct (35-47) % MCV (80-97) fL MCH (27-31) pg MCHC (31-36) g/dl RDW (10.5-15) % Plt Count (150-450) 10^3/ul MPV (7.4-10.4) um3 Neut % (Auto) (38-83) % Lymph % (Auto) (25-47) % Kay % (Auto) (0-7) % Eos % (Auto) (0-6) % Baso % (Auto) (0-2) % Absolute Neuts (auto) (1.5-7.7) 10^3/ul Absolute Lymphs (auto) (1.0-4.8) 10^3/ul Absolute Monos (auto) (0-0.8) 10^3/ul Absolute Eos (auto) (0-0.6) 10^3/ul Absolute Basos (auto) (0-0.2) 10^3/ul Absolute Nucleated RBC 10^3/ul Nucleated RBC % Sodium (133-145) mmol/L Potassium (3.5-5.0) mmol/L Chloride (101-111) mmol/L Carbon Dioxide (22-32) mmol/L Anion Gap (2-11) mmol/L BUN (6-24) mg/dL Creatinine (0.51-0.95) mg/dL Est GFR ( Amer) (>60) Est GFR (Non-Af Amer) (>60) BUN/Creatinine Ratio (8-20) Glucose (70-100) mg/dL Lactic Acid (0.5-2.0) mmol/L Uric Acid (2.3-6.6) mg/dL Calcium (8.6-10.3) mg/dL Magnesium (1.9-2.7) mg/dL Total Bilirubin (0.2-1.0) mg/dL AST (13-39) U/L ALT (7-52) U/L Alkaline Phosphatase (34-104) U/L Ammonia 21 (16-53) mol/L Total Creatine Kinase (10-223) U/L Troponin I 0.05 H* (<0.04) ng/mL B-Natriuretic Peptide ( - 100) pg/mL Total Protein (6.4-8.9) g/dL Albumin (3.2-5.2) g/dL Globulin (2-4) g/dL Albumin/Globulin Ratio (1-3) Procalcitonin (<0.6) ng/mL TSH (0.34-5.60) mcIU/mL Urine Color Yellow Urine Appearance Clear Urine pH 5.0 (5-9) Ur Specific [place] 1.017 (1.010-1.030) Urine Protein Negative (Negative) Urine Ketones Trace A (Negative) Urine Blood 1+ A (Negative) Urine Nitrate Negative (Negative) Urine Bilirubin Negative (Negative) Urine Urobilinogen Negative (Negative) Ur Leukocyte Esterase Negative (Negative) Urine WBC (Auto) Absent (Absent) Urine RBC (Auto) 3+(>10/hpf) A (Absent) Urine Bacteria Absent (Absent) Urine Glucose Negative (Negative) 10/21/17 10/21/17 10/21/17 Range/Units 00:16 05:13 05:13 WBC 4.0 (3.5-10.8) 10^3/ul RBC 4.58 (4.0-5.4) 10^6/ul Hgb 13.0 (12.0-16.0) g/dl Hct 39 (35-47) % MCV 86 (80-97) fL MCH 28 (27-31) pg MCHC 33 (31-36) g/dl RDW 15 (10.5-15) % Plt Count 184 (150-450) 10^3/ul MPV 7 L (7.4-10.4) um3 Neut % (Auto) 66.3 (38-83) % Lymph % (Auto) 18.8 L (25-47) % Kay % (Auto) 13.5 H (0-7) % Eos % (Auto) 0.3 (0-6) % Baso % (Auto) 1.1 (0-2) % Absolute Neuts (auto) 2.6 (1.5-7.7) 10^3/ul Absolute Lymphs (auto) 0.7 L (1.0-4.8) 10^3/ul Absolute Monos (auto) 0.5 (0-0.8) 10^3/ul Absolute Eos (auto) 0 (0-0.6) 10^3/ul Absolute Basos (auto) 0 (0-0.2) 10^3/ul Absolute Nucleated RBC 0 10^3/ul Nucleated RBC % 0.1 Sodium 132 L (133-145) mmol/L Potassium 3.9 (3.5-5.0) mmol/L Chloride 101 (101-111) mmol/L Carbon Dioxide 26 (22-32) mmol/L Anion Gap 5 (2-11) mmol/L BUN 7 (6-24) mg/dL Creatinine 0.72 (0.51-0.95) mg/dL Est GFR ( Amer) 98.1 (>60) Est GFR (Non-Af Amer) 76.3 (>60) BUN/Creatinine Ratio 9.7 (8-20) Glucose 99 (70-100) mg/dL Lactic Acid (0.5-2.0) mmol/L Uric Acid 3.3 (2.3-6.6) mg/dL Calcium 8.4 L (8.6-10.3) mg/dL Magnesium (1.9-2.7) mg/dL Total Bilirubin (0.2-1.0) mg/dL AST (13-39) U/L ALT (7-52) U/L Alkaline Phosphatase (34-104) U/L Ammonia (16-53) mol/L Total Creatine Kinase (10-223) U/L Troponin I 0.05 H* (<0.04) ng/mL B-Natriuretic Peptide ( - 100) pg/mL Total Protein (6.4-8.9) g/dL Albumin (3.2-5.2) g/dL Globulin (2-4) g/dL Albumin/Globulin Ratio (1-3) Procalcitonin (<0.6) ng/mL TSH (0.34-5.60) mcIU/mL Urine Color Urine Appearance Urine pH (5-9) Ur Specific [place] (1.010-1.030) Urine Protein (Negative) Urine Ketones (Negative) Urine Blood (Negative) Urine Nitrate (Negative) Urine Bilirubin (Negative) Urine Urobilinogen (Negative) Ur Leukocyte Esterase (Negative) Urine WBC (Auto) (Absent) Urine RBC (Auto) (Absent) Urine Bacteria (Absent) Urine Glucose (Negative) 10/21/17 10/21/17 Range/Units 05:13 05:13 WBC (3.5-10.8) 10^3/ul RBC (4.0-5.4) 10^6/ul Hgb (12.0-16.0) g/dl Hct (35-47) % MCV (80-97) fL MCH (27-31) pg MCHC (31-36) g/dl RDW (10.5-15) % Plt Count (150-450) 10^3/ul MPV (7.4-10.4) um3 Neut % (Auto) (38-83) % Lymph % (Auto) (25-47) % Kay % (Auto) (0-7) % Eos % (Auto) (0-6) % Baso % (Auto) (0-2) % Absolute Neuts (auto) (1.5-7.7) 10^3/ul Absolute Lymphs (auto) (1.0-4.8) 10^3/ul Absolute Monos (auto) (0-0.8) 10^3/ul Absolute Eos (auto) (0-0.6) 10^3/ul Absolute Basos (auto) (0-0.2) 10^3/ul Absolute Nucleated RBC 10^3/ul Nucleated RBC % Sodium (133-145) mmol/L Potassium (3.5-5.0) mmol/L Chloride (101-111) mmol/L Carbon Dioxide (22-32) mmol/L Anion Gap (2-11) mmol/L BUN (6-24) mg/dL Creatinine (0.51-0.95) mg/dL Est GFR ( Amer) (>60) Est GFR (Non-Af Amer) (>60) BUN/Creatinine Ratio (8-20) Glucose (70-100) mg/dL Lactic Acid (0.5-2.0) mmol/L Uric Acid (2.3-6.6) mg/dL Calcium (8.6-10.3) mg/dL Magnesium (1.9-2.7) mg/dL Total Bilirubin (0.2-1.0) mg/dL AST (13-39) U/L ALT (7-52) U/L Alkaline Phosphatase (34-104) U/L Ammonia (16-53) mol/L Total Creatine Kinase (10-223) U/L Troponin I (<0.04) ng/mL B-Natriuretic Peptide 1621 H ( - 100) pg/mL Total Protein (6.4-8.9) g/dL Albumin (3.2-5.2) g/dL Globulin (2-4) g/dL Albumin/Globulin Ratio (1-3) Procalcitonin < 0.1 (<0.6) ng/mL TSH (0.34-5.60) mcIU/mL Urine Color Urine Appearance Urine pH (5-9) Ur Specific [place] (1.010-1.030) Urine Protein (Negative) Urine Ketones (Negative) Urine Blood (Negative) Urine Nitrate (Negative) Urine Bilirubin (Negative) Urine Urobilinogen (Negative) Ur Leukocyte Esterase (Negative) Urine WBC (Auto) (Absent) Urine RBC (Auto) (Absent) Urine Bacteria (Absent) Urine Glucose (Negative) Microbiology and Other Data: Microbiology 10/21/17 18:50 Legionella Urinary Antigen - Final Urine Negative Legionella Antigen Streptococcus pneumoniae Ag Screen - Final Negative S. pneumo Antigen 10/21/17 14:35 Nasal Screen MRSA (PCR)(ALIYA) - Final Nasal Mrsa Not Detected Assess/Plan/Problems-Billing Assessment: 87 yo female from [facility] w/ PMH dementia, ROOPA on CPAP, HTN, CHF, knee OA p /w worsening orientation, recent fall, now inability to ambulate and large left knee effusion. Coughing, CXR w/ small b/l basilar infiltrate. Now febrile. BNP elevated. #CHF - BNP elevated to 1621 - ECHO 01/20/17 EF 45-50%, mod pHTN, mod MVR. Will repeat. - not on home diuretics. just saw Cardiology day of admission (they sent to ER) - gave lasix 40mg po this afternoon. strict io, daily weights. Likely 20IV BID. - troponin flat 0.05, 0.05. On aspirin 81mg daily. - ACEI (ramipril 10mg), BB (metoprolol 12.5mg BID. #Fever, b/l small basilar infiltrates on CXR, cough, - continue ceftriaxone - add azithromycin 500mg IV daily x 3 days - blood cultures - sputum cultures - MRSA nares - Strep and Legionella Urine Antigen - repeat CXR in AM #left knee effusion - large on MRI - initially reportedly tender in ED, not currently - now that spiking fevers will get ortho consult for consideration for arthrocenteis to rule out septic joint and possible provide symptomatic relief. however not currently erythematous or tender though now on antibiotics. #fall from bed ~2 weeks ago - CTH negative - PT #dementia - aricept, namenda #HTN - metoprolol 12.5mg BID - ramipril 10mg #ROOPA - CPAP qhs #overactive bladder - oxybutinin DVT PPx: start heparin 5000 TID PT: may benefit from short term rehab. diet: heart healthy CODE: DNR - Patient Problems (1) Dementia Current Visit: Yes Status: Acute Code(s): F03.90 - UNSPECIFIED DEMENTIA WITHOUT BEHAVIORAL DISTURBANCE SNOMED Code(s): 81514366 Comment: I discussed prognosis and management with her niece and HCP Page. She wants comfort care measures. I have decreased doses of fluoxetine. and recommend consider stopping it in 1 month. Oxybutynin d/c'd, last received . Swallow eval done, can tolerate nl consistency and thin liquids. (2) Pneumonia Current Visit: Yes Status: Acute Code(s): J18.9 - PNEUMONIA, UNSPECIFIED ORGANISM SNOMED Code(s): 716193361 Comment: Diagnosis uncertain with nl WBC, nl procacitonin. Change to po cefuroxime. Stop [id number] in part due to interaction with donepezil. (3) Atrial fibrillation Current Visit: Yes Status: Acute Code(s): I48.91 - UNSPECIFIED ATRIAL FIBRILLATION SNOMED Code(s): 47867924 Comment: No anticoagulation beyond ASA due to advanced dementia. Niece agrees. Increase metoprolol dose. (4) Hyponatremia Current Visit: Yes Status: Acute Code(s): E87.1 - HYPO-OSMOLALITY AND HYPONATREMIA SNOMED Code(s): 08028091 Comment: Mild. Reducing fluxetine dose should help. (5) HTN (hypertension) Current Visit: No Status: Acute Code(s): I10 - ESSENTIAL (PRIMARY) HYPERTENSION SNOMED Code(s): 78353028 Comment: Ramipril stopped. Continue new dose ofmetoprolol. (6) Urinary retention Current Visit: Yes Status: Acute Code(s): R33.9 - RETENTION OF URINE, UNSPECIFIED SNOMED Code(s): 324820724 Comment: 700 mls on bladder scan 10/21/17. Voiding trial 10/24. Status and Disposition: medicine inpatient.
[2017-10-23] MEDS ORDERED: Polyethylene Glycol 3350* 17 GM PACKET PO PRN (15:00)
[2017-10-23] MEDS: Atorvastatin* 20 MG TAB PO SCH (20:29)
[2017-10-23] MEDS: ceFUROXime TAB(*) 250 MG PO SCH (20:29)
[2017-10-23] MEDS ORDERED: Azithromycin TAB* 250 MG PO ONE (21:00)
--- NOTE | 2017-10-23 23:19 | DS ---
CC: Wisam Kimball NP DISCHARGE SUMMARY: DATE OF ADMISSION: DATE OF DISCHARGE: 10/23/17 HISTORY OF PRESENT ILLNESS: This 87-year-old woman who was admitted with altered mental status and left knee pain, difficulty walking. History is detailed in the admission note. I spoke at length with her niece, Ruth. The patient has had significant memory problems and was transitioned into [place] last year. She has had progressive decline, but is seen more abrupt in the last week. The patient's chest x-ray showed bibasilar infiltrates, could not really say if this was atelectasis or pneumonia. I note, her procalcitonin was very low. Her white blood count was also normal and unchanged from the baseline ranging from 4, which was 4.0 on admission. She did have one elevated temperature of 101 degrees on 10/21/17 at 1:45 p.m. All other temperatures were 99.5 or less. She was given intravenous antibiotic. She did well. On the day of discharge, her O2 saturation on room air was 95%. She was not coughing. She has marked memory impairment and probably would not remember any problems. Shortly after breakfast, she could not be sure if she had breakfast. The patient had a bladder scan of 700 mL of urine. A Lyn catheter was placed. I reduced her oxybutynin and then later discontinued it. On the day fn discharge her PVR by bladder scan was 0 ml. It may be worthwhile doing a voiding trial in urologist's office or at [place] in about a week. The patient was seen by the orthopedic service and had a steroid injection in her left knee. She seemed comfortable after that and did not complain of knee pain. The patient had a period of atrial fibrillation and then return to sinus rhythm. I increased her metoprolol dose to give her better rate control and stopped her ramipril. I think the decision has been made in the past not to give her anticoagulation and in view of her short life expectancy and her dementia and inability to report problems, I think she might be best served by withholding anticoagulants at this time. I had a long discussion with the niece who is her healthcare proxy. She is very interested in comfort care. As the patient has not been losing weight, seems to be eating well without aspirating. She may well have over 6 months of life expectancy left. FINAL DIAGNOSES: 1. Dementia. 2. Pneumonia. 3. Atrial fibrillation. 4. Hyponatremia. 5. Hypertension. 6. Urinary retention resolved off oxybutynin. 7. Osteoarthritis, left knee, status post steroid injection. DISCHARGE MEDICATIONS: 1. Metoprolol tartrate 50 mg b.i.d. 2. Polyethylene glycol 17 g daily. 3. Cefuroxime 500 mg b.i.d. for 10 doses. 4. Fluoxetine 10 mg daily. Consideration should be given to discontinue this in 1 month. 5. Guaifenesin ER 600 mg b.i.d. for 1 week. 6. Potassium chloride 20 mEq daily. 7. Alendronate 70 mg weekly. 8. Famotidine 20 mg b.i.d. 9. Donepezil 10 mg daily. 10. Memantine 5 mg b.i.d. 11. Atorvastatin 20 mg at bedtime. 12. Probiotic capsule as prescribed. 13. Magnesium oxide 400 mg daily. 14. Albuterol inhaler inhalation b.i.d. 15. Drisdol capsule 50,000 units weekly. 16. Aspirin 81 mg daily. 17. Vitamin B12 1000 mcg daily. [id number]/[facility] #: [id number] [facility]
[2017-10-24] MEDS: Heparin VIAL(*) 5000 UNITS/ML VIAL (FIVE THOUSAND) SUBCUT SCH ×2 (05:06→12:23)
[2017-10-24 06:15] LABS: EGFR Non-African American 84.3 (>60)
[2017-10-24] MEDS: Albuterol 2.5 MG/3 ML NEB.SOL* (0.083%) INH SCH (07:19)
[2017-10-24 07:27] VITALS: BP 130/59
[2017-10-24] MEDS: Memantine TAB* 5 MG PO SCH (08:46)
[2017-10-24] MEDS: Famotidine TAB* 20 MG PO SCH (08:46)
[2017-10-24] MEDS: ceFUROXime TAB(*) 250 MG PO SCH (08:46)
[2017-10-24] MEDS: Magnesium Oxide TAB* 400 MG PO SCH (08:46)
[2017-10-24] MEDS: Lactobacillus Acidophilu (GG)* 1 CAP CAP PO SCH (08:46)
[2017-10-24] MEDS: Potassium Chlor TAB* 20 MEQ TAB.ER PO SCH (08:46)
[2017-10-24] MEDS: Aspirin EC Low Dose* 81 MG TAB.EC PO SCH (08:46)
[2017-10-24] MEDS: Metoprolol Tartrate TAB* 50 mg PO SCH (08:46)
[2017-10-24] MEDS: guaiFENesin ER TAB 600 MG PO SCH (08:47)
[2017-10-24] MEDS: Donepezil TAB* 5 MG PO SCH (08:47)
[2017-10-24] MEDS: FLUoxetine CAP* 10 MG PO SCH (08:47)
[2017-10-24] MEDS ORDERED: Cholestyramine Resin* 4 GM POWDER PO SCH (11:00)
--- NOTE | 2017-10-24 11:18 | PN ---
Progress Note - Progress Note Date of Service: 10/24/17 Note: Time spent on discharge 50 minutes.
== END 2017-10-24 13:30 | disposition home or self-care (01) | DRG 564 ==
LOC: ED 12:53 → MEDTELE 19:51 → OBSVTOIN 10-21 12:11 → UNDODISIN 10-24 13:30
PROVIDERS: ADMIT Nurse Practitioner Adult Health; ATTEND Internal Medicine
PROC: 5A09457 Assistance with Respiratory Ventilation, 24-96 Consecutive Hours, Continuous Positive Airway Pressure (ICD-10-PCS; 2017-10-20)
PROC: 3E0U33Z Introduction of Anti-inflammatory into Joints, Percutaneous Approach (ICD-10-PCS; principal; 2017-10-22)
DX: M25.462 Effusion, left knee (principal); J18.9 Pneumonia, unspecified organism; I11.0 Hypertensive heart disease with heart failure; E87.1 Hypo-osmolality and hyponatremia; F02.80 Dementia in other diseases classified elsewhere, unspecified severity, without behavioral disturbance, psychotic disturbance, mood disturbance, and anxiety; I48.91 Unspecified atrial fibrillation; I50.9 Heart failure, unspecified; G47.33 Obstructive sleep apnea (adult) (pediatric); K21.9 Gastro-esophageal reflux disease without esophagitis; Z66 Do not resuscitate; R33.9 Retention of urine, unspecified; M17.12 Unilateral primary osteoarthritis, left knee; N32.81 Overactive bladder; M25.762 Osteophyte, left knee; J45.909 Unspecified asthma, uncomplicated; M65.862 Other synovitis and tenosynovitis, left lower leg; Z96.651 Presence of right artificial knee joint; Z85.3 Personal history of malignant neoplasm of breast; Z85.42 Personal history of malignant neoplasm of other parts of uterus; Z79.82 Long term (current) use of aspirin; Z79.899 Other long term (current) drug therapy; Z88.2 Allergy status to sulfonamides; Z88.8 Allergy status to other drugs, medicaments and biological substances
CPT/HCPCS: 36415; 70450; 71045; 71046; 80048; 80053; 81003; 81015; 82140; 82550; 82570; 83605; 83735; 83880; 83935; 84145; 84300; 84443; 84484; 84550; 85025; 87040; 87493; 87641; 87899; 93005; 93226; 93306; 94640; 94660; 94760; 99284; A9270-GY; C8929; G8978-GP-CI; G8979-GP-CH; J0456; J0696; J1040; J1644; J1940; J3475

== ENCOUNTER 2017-12-12 19:17 | Emergency (ER) | payer OTHER, MEDICARE ==
--- NOTE | 2017-12-12 21:04 | ED ---
Prince Santana Elizabeth, scribed for Nilson Wren MD on 12/12/17 at 1947 . Complex/Multi-Sys Presentation - HPI Summary HPI Summary: This patient is an 87 year old F presenting to [facility] via EMS with a chief complaint of hip pain since this morning. The pt is a resident at [facility] and uses a wheelchair to get around. Per triage note, EMS report notes the pt had 2 unwitnessed falls today and has been frequently trying to get up and move around on her own. The patient denies any pain. Symptoms aggravated recent falls. Symptoms alleviated by nothing. - History Of Current Complaint Chief Complaint: EDGeneral Time Seen by Provider: 12/12/17 19:36 Hx Obtained From: EMS, Medical Records Hx From Patient Unobtainable Due To: Altered Mental Status Onset/Duration: Lasting Minutes, Resolved Timing: Minutes Severity Currently: Mild Severity Initially: Mild Location: Pain At: - hips Associated Signs And Symptoms: Positive: Confusion, Recent Trauma - x2 unwitnessed falls - Allergies/Home Medications Allergies/Adverse Reactions: Allergies Allergy/AdvReac Type Severity Reaction Status Date / Time loratadine [From Claritin] Allergy Unknown Verified 10/20/17 15:02 Reaction Details Sulfa (Sulfonamide Allergy Unknown Verified 10/20/17 15:02 Antibiotics) Reaction Details Home Medications: Home Medications Cholecalciferol (Vitamin D3) [Vitamin D3] 2,000 unit PO DAILY 12/12/17 [History Confirmed 12/12/17] Cholestyramine Resin* [Questran*] 4 gm PO QPM 12/12/17 [History Confirmed ] Oxybutynin TAB* [Ditropan TAB*] 15 mg PO DAILY 12/12/17 [History Confirmed 12/12] PMH/Surg Hx/FS Hx/Imm Hx Endocrine/Hematology History: Reports: Hx Thyroid Disease, Other Endocrine/ Hematological Disorders - Vitamin B12 Deficiency Denies: Hx Diabetes Cardiovascular History: Reports: Hx Hypercholesterolemia, Hx Hypertension, Other Cardiovascular Problems/Disorders - Heart Disease Denies: Hx Pacemaker/ICD Respiratory History: Reports: Hx Asthma, Hx Chronic Obstructive Pulmonary Disease (COPD), Hx Sleep Apnea - current BiPAP user, Other Respiratory Problems/ Disorders - Cpap GI History: Reports: Hx Gastroesophageal Reflux Disease History: Denies: Hx Renal Disease Musculoskeletal History: Reports: Hx Arthritis, Hx Osteoporosis Sensory History: Reports: Hx Contacts or Glasses - at home, Hx Hearing Aid - DOESN'T WEAR ALL THE TIME Opthamlomology History: Reports: Hx Contacts or Glasses - at home Neurological History: Reports: Hx Dementia, Other Neuro Impairments/Disorders - Alzheimers Psychiatric History: Denies: Hx Panic Disorder - Cancer History Cancer Type, 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 Rt MASTECTOMY - 1991. TOTAL HYSTERECTOMY - 2007 - Immunization History Date of Influenza Vaccine: 05/25 Infectious Disease History: Unable to Obtain/Confirm Infectious Disease History: Denies: Traveled Outside the [place] in Last 30 Days - Family History Known Family History: Positive: Hypertension Family History: FHx of Breast CA (Aunt) - Social History Alcohol Use: None Substance Use Type: Reports: None Smoking Status (MU): Former Smoker Amount Used/How Often: 1 ppd Length of Time of Smoking/Using Tobacco: 10 years Have You Smoked in the Last Year: No Review of Systems Negative: Fever Negative: Chest Pain Negative: Abdominal Pain Musculoskeletal: Other - hip pain Negative: Headache All Other Systems Reviewed And Are Negative: Yes Physical Exam - Summary Physical Exam Summary: Appearance: The patient is well-nourished in no acute distress and in no acute pain. Skin: The skin is warm and dry and skin color reflects adequate perfusion. HEENT: The head is normocephalic and atraumatic. The pupils are equal and reactive. The conjunctivae are clear and without drainage. Nares are patent and without drainage. Mouth reveals moist mucous membranes and the throat is without erythema and exudate. The external ears are intact. The ear canals are patent and without drainage. The tympanic membranes are intact. Neck: the neck is supple with full range of motion and non-tender. There are no carotid bruits. There is no neck vein distension. Respiratory: Chest is non-tender. Lungs are clear to auscultation and breath sounds are symmetrical and equal. Cardiovascular: Heart is regular rate and rhythm. There is no murmur or rub auscultated. There is no peripheral edema and pulses are symmetrical and equal. Abdomen: The abdomen is soft and non-tender. There are normal bowel sounds heard in all four quadrants and there is no organomegaly palpated. Musculoskeletal: There is no back tenderness noted. Extremities are non-tender with full range of motion. There is good capillary refill. There is no peripheral edema or calf tenderness elicited. Neurological: Patient is alert and oriented to person, place and time. The patient has symmetrical motor strength in all four extremities. Cranial nerves are grossly intact. Deep tendon reflexes are symmetrical and equal in all four extremities. Psychiatric: The patient has an appropriate affect and does not exhibit any anxiety or depression. The patient is confused and reticent. Triage Information Reviewed: Yes Vital Signs On Initial Exam: Initial Vitals Temp Pulse Resp BP Pulse Ox 98.8 F 60 16 144/50 96 12/12/17 19:20 12/12/17 19:20 12/12/17 19:20 12/12/17 19:20 12/12/17 19:20 Vital Signs Reviewed: Yes Diagnostics - Vital Signs Vital Signs Temp Pulse Resp BP Pulse Ox 12/12/17 19:24 54 98 12/12/17 19:23 144/50 12/12/17 19:20 98.8 F 60 16 144/50 96 - Laboratory Lab Statement: Any lab studies that have been ordered have been reviewed, and results considered in the medical decision making process. Complex Multi-Symp Course/Dx Course Of Treatment: Ms. Flood was sent over from the [facility] because she keeps trying to get out of her wheelchair on her own and falling. She didn't seem to be hurt when she got here so I sent her back. She may need some additional outpatient W/U. - Diagnoses Provider Diagnoses: Frequent falls Discharge - Sign-Out/Discharge Documenting (check all that apply): Discharge/Admit/Transfer - Discharge Plan Condition: Stable Disposition: HOME Referrals: Wisam Kimball NP [Primary Care Provider] - 2 Days - Billing Disposition and Condition Condition: STABLE Disposition: HOME The documentation as recorded by the Prince alvarez Elizabeth accurately reflects the service I personally performed and the decisions made by me, Nilson Wren MD.
[2017-12-12 21:15] VITALS: BP 134/55
== END 2017-12-12 21:15 | disposition home or self-care (01) ==
LOC: ED 19:17
DX: Z91.81 History of falling (principal); M25.559 Pain in unspecified hip; R41.0 Disorientation, unspecified; Z87.891 Personal history of nicotine dependence; Z85.3 Personal history of malignant neoplasm of breast; Z86.79 Personal history of other diseases of the circulatory system
CPT/HCPCS: 99283